=== PATIENT | female | born 1935 | race Caucasian/White ===

== ENCOUNTER 2016-10-19 09:33 | Inpatient (IN) ==
[2016-10-19] MEDS ORDERED: Ondansetron 4 MG/2 ML VIAL IVP PRN (11:43)
[2016-10-19] MEDS ORDERED: Naloxone 0.4 MG/ML INJ IVP PRN (11:43)
[2016-10-19] MEDS ORDERED: *HR* Morphine 2 MG/ML SYRINGE IVP PRN (11:43)
--- NOTE | 2016-10-19 12:12 | Internal Med History&Physical ---
Date of Encounter: 10/19/16 Time of Encounter: 11:55 Assessment and Plan (1) Acute on chronic respiratory failure with hypercapnia Current visit: Yes Status: Acute Acute on chronic hypoxic hypercapnic respiratory failure secondary to acute exacerbation of advanced COPD, HCAP - POA and possible new-onset CHF unspecified Continue BiPAP, DuoNeb breathing treatment, Symbicort, IV Lasix Continue IV Zosyn, vancomycin, IV Levaquin EKG - pending Chest x-ray - possible bilateral pneumonia with bilateral pleural effusions Labs - pending at this time Echocardiogram - pending cardiac telemetry, continuous pulse ox Strict I's and O's, nothing by mouth, fluid restriction, daily weight Labs in a.m. (2) HCAP (healthcare-associated pneumonia) Current visit: Yes Status: Acute Recent hospitalization with recent IV antibiotics Continue IV Zosyn, Levaquin and vancomycin DuoNeb breathing treatments Cultures pending (3) Advanced COPD Current visit: Yes Status: Chronic Plan as above (4) Hypertension Current visit: Yes Status: Chronic Essential hypertension controlled, continue home meds, monitor Qualifiers: Hypertension type: essential hypertension Qualified Code(s): I10 - Essential (primary) hypertension (5) Atrial fibrillation Current visit: Yes Status: Chronic Chronic atrial fibrillation rate controlled Continue Eliquis for anticoagulation Continue metoprolol Qualifiers: Atrial fibrillation type: chronic Qualified Code(s): I48.2 - Chronic atrial fibrillation (6) Solitary kidney, congenital Current visit: Yes Status: Chronic Congenital solitary kidney status (7) Tobacco abuse Current visit: Yes Status: Chronic Nicotine patch, will credit counselor about cessation (8) DVT prophylaxis Current visit: Yes Status: Acute Continue Eliquis Internal Medicine - H&P: HPI Chief complaint: shortness of breath Admitted From: Intrahospital Transfer Plans for Post Hospital Care: Home History of present illness: Ms. Hardy is a 81 year old female past medical history atrial fibrillation, hypertension, hyperlipidemia, COPD, GERD aortic aneurysm thyroid disease and solitary kidney status. She presents as a transfer from [facility] for respiratory failure. Patient has been placed on BiPAP and transferred to our facility. On examination patient is drowsy but easily arousable. She is on BiPAP. She is unable to provide a good history. Most of the history is obtained from patient' s granddaughter. Patient is apparently been discharged from [facility] about 2-3 days ago after being treated for several failure requiring intubation and ventilation. Patient had been doing well since discharge, until late last night. Patient complained of generalized weakness and fatigue last night, and required assistance with ambulation. Earlier this morning patient continued to have significant weakness and also complained of shortness of breath. She was then taken to [facility] ED via EMS for further evaluation. Initial evaluation at [facility] revealed hypoxic respiratory failure, patient was placed on BiPAP. Patient is unable to provide good history, but able to answer some questions. Denies chest pain or any other complaints at this time. No recent falls reported. Patient has been advised to go to [facility] recently but she refused. As per family patient has also been slightly confused since this morning. On examination patient is drowsy, but easily arousable. She is on BiPAP. Patient is being admitted for acute hypoxic hypercapnic respiratory failure secondary to acute exacerbation of COPD. She also likely has healthcare associated pneumonia. She will require breathing treatment BiPAP and IV antibiotics. Patient's granddaughter has been explained about her condition and plan of care. Understood and agreed. We will discuss with other family members as well. CODE STATUS full code. Past Med Surg Social Fam HX - Past Medical History Medical history: aortic aneurysm, atrial fibrillation, COPD, GERD, hyperlipidemia, hypertension, thyroid disease, other (Congenitally one functioning kidney) Psychiatric history: no psych history - Past Surgical History Surgical History: no surgical history - Social History Smoking Status: Current every day smoker Smokeless Tobacco Status: No Alcohol use: none Drug use: none Internal Medicine - H&P: Meds Apixaban [Eliquis] 2.5 mg PO BID 10/10/16 [History] Omeprazole 20 mg PO DAILY 10/10/16 [History] Simvastatin [Zocor] 40 mg PO HS 10/10/16 [History] Albuterol Sulfate [Ventolin Hfa] 2 puff IH Q4H PRN 10/19/16 [History] Aspirin 81 mg PO DAILY 10/19/16 [History] Clopidogrel [Plavix] 75 mg PO DAILY 10/19/16 [History] Docusate [Colace] 100 mg PO BID 10/19/16 [History] Ferrous Gluconate 324 mg PO TID 10/19/16 [History] Fluticasone/Salmeterol [Advair 250-50 Diskus] 1 each IH Q12H 10/19/16 [History] Levothyroxine [Levothyroxine Sodium] 137 mcg PO DAILY@0630 10/19/16 [History] Metoprolol [Lopressor] 25 mg PO TID 10/19/16 [History] Polyethylene Glycol 3350 [MiraLAX Powder Bulk 17.9 Oz] 1 scoop PO DAILY PRN 08/31 [History] Ranitidine HCl [Acid Power Station Operator] 150 mg PO DAILY PRN 10/19/16 [History] Sennosides [Senokot] 8.6 mg PO DAILY 10/19/16 [History] Allergies diphenhydramine [From Benadryl] Allergy (Verified 10/10/16 18:03) Difficulty Breathing ivp dye Allergy (Uncoded 10/10/16 15:35) See Comments ROS unobtainable: other (Due to medical condition) All Systems PM: A 10-system review of systems was performed and is negative for pertinent findings except as documented above in the HPI. - Constitutional Constitutional: fatigue, weakness, no fever(s) - EENT Eyes: no loss of vision - Cardiovascular Cardiovascular ROS IM: dyspnea, dyspnea on exertion, orthopnea, no chest pain, no diaphoresis, no syncope - Respiratory Respiratory: cough, dyspnea, dyspnea on exertion, no wheezing, no chest congestion - Gastrointestinal Gastrointestinal: no abdominal pain, no cramping, no diarrhea, no nausea, no vomiting - Neurological Neurological ROS: no abnormal gait, no abnormal speech, no dizziness, no numbness, no tingling - Constitutional Vitals: Temp Pulse Resp BP Pulse Ox 96.2 F L 97 16 135/67 100 10/19/16 11:44 10/19/16 11:44 10/19/16 11:44 10/19/16 11:44 10/19/16 11:44 General appearance: Present: mild distress, underweight. Absent: answers questions appropriately Exam: Generalized weakness, ill-appearing, drowsy but easily arousable. - Head Head exam: Present: atraumatic - Eye Eye exam: Absent: scleral icterus - ENT ENT exam: Present: mucous membranes dry - Neck Neck exam general surgery: Present: supple - Respiratory Respiratory exam: Present: rales (Bilateral basilar), wheezes (Mild bilateral ) , tachypnea. Absent: rhonchi - Cardiovascular Cardiovascular exam: Present: irregular rhythm, +S1, +S2, systolic murmur - GI/Abdominal GI/Abdominal exam: Present: soft. Absent: distended, firm, guarding, rigid, tenderness - Extremities Exam Extremities exam: Present: radial pulses palpable and symetrical. Absent: cyanotic, tenderness - Neurological Exam Neurological exam: Present: no focal deficits. Absent: facial droop, speech deficit Additional comments: Generalized weakness, drowsy but easily arousable. Able to move extremities, able to verbalize
[2016-10-19] MEDS: Ipratropium/Albuterol Neb 3 ML IH SCH ×3 (12:29→20:20)
[2016-10-19] MEDS ORDERED: Furosemide 40 MG/4 ML VIAL IVP SCH (12:30)
[2016-10-19 12:36] LABS: ABG Base Excess 11.6 mEq/L (-2.0 to 3.0); ABG HCO3 40.9 mEQ/L (21-27); ABG Oxygen Saturation 100 % (95-98); ABG PH 7.27 pH Units (7.32-7.45); ABG PO2 186 mmHg (85-104); ABG TCO2 43.6 mEq/L (20-26)
[2016-10-19 12:41] LABS: ABG PCO2 89 mmHg (35-45); Blood Gas FiO2 60 %
[2016-10-19] MEDS: methylPREDNISolone 125 MG/2 ML VIAL IVP SCH ×3 (13:32→22:30)
[2016-10-19] MEDS: Nicotine 21 MG PATCH.TD24 TD SCH (13:33)
[2016-10-19 14:11] LABS: Basophils % 0.1 %; Eosinophils # 0.2 K/mcL (0.0-0.6); Eosinophils % 1.6 %; Hematocrit 28.7 % (35.3-44.9); Hemoglobin 8.4 g/dL (11.5-15.4); Immature Granulocytes % 1.4 % (0-4); Lymphocytes # 0.9 K/mcL (0.6-4.6); Lymphocytes % 7.2 %; Mean Corpuscular HGB Conc 29.3 g/dL (31.6-35.5); Mean Corpuscular Hemoglobin 29.3 pg (28.0-33.3); Mean Platelet Volume 11.4 fL (9.4-12.4); Monocytes # 1.6 K/mcL (0.0-1.3); Monocytes % 12.7 %; Neutrophils # 9.9 K/mcL (1.6-8.9); Platelet Count 301 K/mcL (140-400); Red Blood Count 2.87 M/mcL (3.82-4.97)
[2016-10-19 14:18] LABS: INR 1.1; Prothrombin Time 12.1 Seconds (9.4-12.1)
[2016-10-19 14:27] LABS: Albumin 2.9 g/dL (3.5-5.0); Albumin/Globulin Ratio 0.9 (1.1-2.2); Bilirubin,Total 0.3 mg/dL (0.2-1.2); Calcium 9.4 mg/dL (8.6-10.8); Globulin 3.2 g/dL (2.4-3.5); Magnesium 1.9 mg/dL (1.6-2.6); Potassium 4.4 mEq/L (3.5-4.5); Total Protein 6.1 g/dL (6.0-8.3)
[2016-10-19] MEDS: Levofloxacin 750 MG/150 ML 750 MG/150 ML BAG IVPB SCH (14:49)
[2016-10-19] MEDS: Vancomycin 1,000 MG in D5% in Water 250 ML IVPB SCH (14:52)
[2016-10-19] MEDS: Piperacillin/Tazobactam 3.375 GM in D5% in Water (Mini-Bag+) 100 ML IVPB SCH ×2 (15:01→22:36)
--- NOTE | 2016-10-19 15:51 | Pulmonology Consult Note ---
Date of Encounter: 10/19/16 Time of Encounter: 15:50 Assessment and Plan (1) Acute exacerbation of chronic obstructive airways disease Current Visit: No Status: Acute 81-year-old woman with what appears to be advanced COPD and chronic respiratory failure heart failure and atrial fibrillation who presented with decompensated respiratory failure which is likely combination of heart failure and COPD exacerbation. 1. Acute on chronic hypoxic hypercarbic respiratory failure 2. Possible PNA 3. COPD with acute exacerbation 4. CHF 5. Atrial Fibrillation RECS: 1. I have adjusted BiPAP at bedside tidal volumes currently 450-550mL when she is awake and taking good breaths this just should be sufficient with her respiratory rate between 14-16 to improve ventilation to avoid intubation. She will need repeat blood gas 30 minutes and I have updated the nursing staff to to this fact. If there is no improvement with repeat blood gas would likely need transfer to stepdown unit for more closer monitoring and more frequent adjustment of BiPAP. I would recommend testing the patient prior to discharge for possible need of noninvasive ventilation at night. I also recomend she have an outpatient polysomnogram. Goal O2 saturation should be 89-92% 2. I do not see a compelling case for acute pneumonia although possible she has had persistent leukocytosis since last admission to the ED and then there is not really any other clinical evidence at this point I would suggest that she has infectious pneumonia. I agree with empiric antimicrobials pending sputum blood cultures recommend sending respiratory infectious panel negative with stop antimicrobials save for possible 5 days of azithromycin to treat for COPD exacerbation 3. Agree with empiric IV steroids and bronchodilators she has scheduled metered -dose inhaler and see Symbicort and sees which is reasonable patient had been smoking up until the admission to [email or web address] but has not smoked since at least from the record I got from the nurse clearly tobacco cessation is of the utmost importance 4. Suspect underlying heart failure with preserved ejection fraction troponin on admission has not been elevated would recommend obtaining two-dimensional echocardiogram as BNP is elevated agree with continued diuresis goal -1-2 L over the next 24 hours she will need at least daily electrolyte panel to monitor for potassium and magnesium along with kidney function I will defer to management of blood pressure to the primary medicine service 5. Currently rate controlled she is on long-term anticoagulation which is reasonable to continue which will also prevent venous thromboembolism continue to monitor Thank you for the consult Pulmonary will continue to follow (2) Acute and chronic respiratory failure Current Visit: No Status: Acute Qualifiers: Respiratory failure complication: hypoxia and hypercapnia Qualified Code(s) : J96.21 - Acute and chronic respiratory failure with hypoxia; J96.22 - Acute and chronic respiratory failure with hypercapnia (3) HCAP (healthcare-associated pneumonia) Current Visit: Yes Status: Acute (4) Atrial fibrillation Current Visit: Yes Status: Chronic Qualifiers: Atrial fibrillation type: chronic Qualified Code(s): I48.2 - Chronic atrial fibrillation (5) DVT prophylaxis Current Visit: Yes Status: Acute (6) Tobacco abuse Current Visit: Yes Status: Chronic History of Present Illness Consult date: 10/19/16 Requesting physician: Sher Anguiano Reason for consult: COPD Chief complaint: Dyspnea History of present illness: This 81-year-old woman with a history of COPD heart failure atrial fibrillation on long-term anticoagulation was admitted for acute on chronic hypoxic hypercarbic respiratory failure. Medical history is taken from the medical record and nursing staff as there was no family members present and patient while being a willing is an incomplete and unreliable historian. Barely the patient was just discharged from [facility] where she was admitted for respiratory failure and treated for pneumonia and COPD exacerbation. She went home for a couple of days and barely did well for at least 24 hours and was unable requiring supplemental oxygen per the record but was found on the toilet and was somnolent with increased dyspnea and fatigue which progressively got worse family called EMS and she was taken to [place] ED and then transferred to [place] for further evaluation. Chest x-ray was notable for increased vascular congestion and bilateral pleural effusions and concern for bilateral pneumonia. Blood gas showed acute on chronic respiratory acidosis she has been treated with bilevel positive airway pressure support steroids with Bactrim antimicrobials to cover for hospital pathogens as well as diuresis. Minor the room was dark the patient was lying nearly flat and took some time to arouse once lytes were turned on she was sat up in bed she was able to follow all my commands and was much more alert and responsive. Cardio pulmonary telemetry monitoring showed saturation of 99-100% on 40% FiO2 bleed to the BiPAP blood pressure has been stable heart rate irregular rate but rate controlled Past Med Surg Social Fam HX - Past Medical History Medical history: aortic aneurysm, atrial fibrillation, COPD, GERD, hyperlipidemia, hypertension, thyroid disease, other (Congenitally one functioning kidney) Psychiatric history: no psych history - Past Surgical History Surgical History: no surgical history - Social History Smoking Status: Current every day smoker Smokeless Tobacco Status: No Alcohol use: none Drug use: none Medications and Allergies Apixaban [Eliquis] 2.5 mg PO BID 10/10/16 [History] Omeprazole 20 mg PO DAILY 10/10/16 [History] Simvastatin [Zocor] 40 mg PO HS 10/10/16 [History] Albuterol Sulfate [Ventolin Hfa] 2 puff IH Q4H PRN 10/19/16 [History] Aspirin 81 mg PO DAILY 10/19/16 [History] Clopidogrel [Plavix] 75 mg PO DAILY 10/19/16 [History] Docusate [Colace] 100 mg PO BID 10/19/16 [History] Ferrous Gluconate 324 mg PO TID 10/19/16 [History] Fluticasone/Salmeterol [Advair 250-50 Diskus] 1 each IH Q12H 10/19/16 [History] Levothyroxine [Levothyroxine Sodium] 137 mcg PO DAILY@0630 10/19/16 [History] Metoprolol [Lopressor] 25 mg PO TID 10/19/16 [History] Polyethylene Glycol 3350 [MiraLAX Powder Bulk 17.9 Oz] 1 scoop PO DAILY PRN 08/31 [History] Ranitidine HCl [Acid Resistor Winder] 150 mg PO DAILY PRN 10/19/16 [History] Sennosides [Senokot] 8.6 mg PO DAILY 10/19/16 [History] Allergies diphenhydramine [From Benadryl] Allergy (Verified 10/10/16 18:03) Difficulty Breathing ivp dye Allergy (Uncoded 10/10/16 15:35) See Comments All Systems: A 10-system review of systems was performed and is negative for pertinent findings except as documented above in the HPI. Physical Examination Vital Signs: Vital Signs, Last 4 Hours Temp Pulse Resp BP Pulse Ox 10/19/16 15:06 97.7 F 94 16 111/83 100 General appearance: no acute distress Eyes: nonicteric ENT: oropharynx moist Effort: mildly labored Auscultation: bilateral: diminished breath sounds, wheezes (Faint expiratory wheeze), rales (Crackles bilateral the lung bases) Cardiovascular: irregular rhythm Gastrointestinal: normoactive bowel sounds, non-tender Extremities: edema (Trace bilateral lower extremity edema) Musculoskeletal: no deformities non-focal exam, pupils equal and round Results - Laboratory Findings CBC and BMP: 10/19/16 13:55 10/19/16 13:55 ABG ABG pH 7.27 pH Units (7.32-7.45) L 10/19/16 12:18 ABG pCO2 89 mmHg (35-45) H* 10/19/16 12:18 ABG pO2 186 mmHg (85-104) H 10/19/16 12:18 ABG O2 Saturation 100 % (95-98) H 10/19/16 12:18 PT/INR, D-dimer PT 12.1 Seconds (9.4-12.1) 10/19/16 13:55 Abnormal lab findings: Abnormal lab results WBC 12.9 K/mcL (4.3-11.1) H 10/19/16 13:55 RBC 2.87 M/mcL (3.82-4.97) L 10/19/16 13:55 Hgb 8.4 g/dL (11.5-15.4) L 10/19/16 13:55 Hct 28.7 % (35.3-44.9) L 10/19/16 13:55 MCHC 29.3 g/dL (31.6-35.5) L 10/19/16 13:55 Neutrophils # 9.9 K/mcL (1.6-8.9) H 10/19/16 13:55 Monocytes # 1.6 K/mcL (0.0-1.3) H 10/19/16 13:55 ABG pH 7.27 pH Units (7.32-7.45) L 10/19/16 12:18 ABG pCO2 89 mmHg (35-45) H* 10/19/16 12:18 ABG pO2 186 mmHg (85-104) H 10/19/16 12:18 ABG HCO3 40.9 mEQ/L (21-27) H 10/19/16 12:18 ABG Total CO2 43.6 mEq/L (20-26) H 10/19/16 12:18 ABG O2 Saturation 100 % (95-98) H 10/19/16 12:18 ABG Base Excess 11.6 mEq/L (-2.0 to 3.0) H 10/19/16 12:18 Carbon Dioxide 38 mEq/L (19-29) H 10/19/16 13:55 BUN 21 mg/dL (7-20) H 10/19/16 13:55 Creatinine 1.57 mg/dL (0.57-1.11) H 10/19/16 13:55 Est GFR ( Amer) 39 (> 60) L 10/19/16 13:55 Est GFR (Non-Af Amer) 32 (> 60) L 10/19/16 13:55 Glucose 109 mg/dL (70-99) H 10/19/16 13:55 Calculated Osmolality 302 (280-300) H 10/19/16 13:55 B-Natriuretic Peptide 427 pg/mL (0-100) H 10/19/16 13:55 Albumin 2.9 g/dL (3.5-5.0) L 10/19/16 13:55 Albumin/Globulin Ratio 0.9 (1.1-2.2) L 10/19/16 13:55 - Diagnostic Findings Chest x-ray: report reviewed, image reviewed CT scan - chest: report reviewed, image reviewed - Clinical Findings Intake & Output: Intake & Output 10/18/16 10/19/16 10/19/16 23:59 07:59 15:59 Weight 61.8 kg Consult Discharge Plan - Plan Referrals: Meenu Rascon, SN[employer] GROOMER [Primary Care Provider] -
[2016-10-19] MEDS ORDERED: *HR* Heparin 5,000 UNIT/ML VIAL SQ SCH (16:00)
[2016-10-19 16:40] LABS: ABG HCO3 39.3 mEQ/L (21-27); ABG Oxygen Saturation 99 % (95-98); ABG PCO2 68 mmHg (35-45); ABG PH 7.37 pH Units (7.32-7.45); ABG PO2 130 mmHg (85-104); ABG TCO2 41.4 mEq/L (20-26)
[2016-10-19 16:41] LABS: Blood Gas FiO2 40 %
[2016-10-19] MEDS: Budesonide/Formoterol 80/4.5 MDI IH SCH (20:20)
[2016-10-19] MEDS: APIXABAN 2.5 MG TABLET PO SCH (22:33)
[2016-10-20] MEDS: Ipratropium/Albuterol Neb 3 ML IH SCH ×7 (00:48→23:27)
[2016-10-20] MEDS: Acetaminophen 325 MG TABLET PO PRN ×2 (02:20→20:03)
[2016-10-20] MEDS: Famotidine 20 MG/2 ML VIAL IVP SCH (05:31)
[2016-10-20] MEDS: methylPREDNISolone 125 MG/2 ML VIAL IVP SCH ×3 (05:31→18:19)
[2016-10-20] MEDS: Piperacillin/Tazobactam 3.375 GM in D5% in Water (Mini-Bag+) 100 ML IVPB SCH ×2 (05:31→15:25)
[2016-10-20 05:56] LABS: Calcium 9.1 mg/dL (8.6-10.8); Potassium 4.8 mEq/L (3.5-4.5)
[2016-10-20 07:08] LABS: ABG Base Excess 13.1 mEq/L (-2.0 to 3.0); ABG HCO3 37.5 mEQ/L (21-27); ABG Oxygen Saturation 99 % (95-98); ABG PCO2 47 mmHg (35-45); ABG PH 7.51 pH Units (7.32-7.45); ABG PO2 140 mmHg (85-104); ABG TCO2 38.9 mEq/L (20-26); Blood Gas FiO2 40 %
--- NOTE | 2016-10-20 07:19 | Pulmonology Progress Note ---
Date of Encounter: 10/20/16 Time of Encounter: 07:19 Assessment and Plan (1) Acute exacerbation of chronic obstructive airways disease Current Visit: No Status: Acute I would continue IV steroids today transitioned to enteral prednisone 40 mg to keep completed two-week taper. Continues scheduled Symbicort and nebulized bronchodilators as needed Reinforce the need for smoking cessation continue nicotine replacement via patch (2) Acute and chronic respiratory failure Current Visit: No Status: Acute This is likely secondary to COPD exacerbation. Continue to wean supplemental oxygen to keep saturation greater than 88% will need to have qualification for BiPAP on this admission I discussed this with the respiratory therapist Qualifiers: Respiratory failure complication: hypoxia and hypercapnia Qualified Code(s) : J96.21 - Acute and chronic respiratory failure with hypoxia; J96.22 - Acute and chronic respiratory failure with hypercapnia (3) HCAP (healthcare-associated pneumonia) Current Visit: Yes Status: Acute I am dubious that she truly has pneumonia would de-escalate to either respiratory fluoroquinolone for 5 days or azithromycin for 5 days (4) Atrial fibrillation Current Visit: Yes Status: Chronic Rate controlled defer to primary medicine service for long-term anticoagulation and notable blocking agent Qualifiers: Atrial fibrillation type: chronic Qualified Code(s): I48.2 - Chronic atrial fibrillation (5) DVT prophylaxis Current Visit: Yes Status: Acute She is currently on a NOAC (6) Tobacco abuse Current Visit: Yes Status: Chronic Tobacco cessation counseling provided (7) CHF (congestive heart failure) Current Visit: Yes Status: Acute Has a history of CHF although do not see an echocardiogram in our system BNP was elevated she is undergoing diuresis however this has resulted in mild acute kidney injury I would stop further diuresis encourage by mouth intake I would recommend echocardiogram if not ordered blood pressure control (on the lower side today actually) and Lusitropic agents per primary team Pulmonary will sign off please call with any questions or if clinical deterioration Qualifiers: Congestive heart failure type: unspecified congestive heart failure type Congestive heart failure chronicity: unspecified congestive heart failure chronicity Qualified Code(s): I50.9 - Heart failure, unspecified Subjective Principal diagnosis: COPD exacerbation Interval history: Patient did well overnight has been taken off BiPAP this morning conversant much more awake appears to be doing much better overall. Creatinine did bump slightly overnight after diuresis but urine output remains steady. She is relatively confused this morning but basic just of all conversation is reasonable and redirectable Objective PUL Vital signs: Last Vital Signs Temp 98.8 F 10/19/16 19:38 Pulse 88 10/20/16 05:17 Resp 20 10/20/16 05:17 BP 94/59 10/20/16 05:17 Pulse Ox 100 10/20/16 05:17 General appearance: no acute distress ENT: oropharynx dry Neck: supple Effort: normal Auscultation: bilateral: diminished breath sounds Cardiovascular: irregular rhythm Gastrointestinal: non-tender Extremities: no edema non-focal exam mood appropriate Results - Laboratory Findings CBC and BMP: 10/20/16 06:59 10/20/16 05:13 ABG ABG pH 7.51 pH Units (7.32-7.45) H 10/20/16 06:55 ABG pCO2 47 mmHg (35-45) H 10/20/16 06:55 ABG pO2 140 mmHg (85-104) H 10/20/16 06:55 ABG O2 Saturation 99 % (95-98) H 10/20/16 06:55 PT/INR, D-dimer PT 12.1 Seconds (9.4-12.1) 10/19/16 13:55 Abnormal lab findings: Abnormal lab results WBC 12.9 K/mcL (4.3-11.1) H 10/19/16 13:55 RBC 2.87 M/mcL (3.82-4.97) L 10/19/16 13:55 Hgb 8.4 g/dL (11.5-15.4) L 10/19/16 13:55 Hct 28.7 % (35.3-44.9) L 10/19/16 13:55 MCHC 29.3 g/dL (31.6-35.5) L 10/19/16 13:55 Neutrophils # 9.9 K/mcL (1.6-8.9) H 10/19/16 13:55 Monocytes # 1.6 K/mcL (0.0-1.3) H 10/19/16 13:55 ABG pH 7.51 pH Units (7.32-7.45) H 10/20/16 06:55 ABG pCO2 47 mmHg (35-45) H 10/20/16 06:55 ABG pO2 140 mmHg (85-104) H 10/20/16 06:55 ABG HCO3 37.5 mEQ/L (21-27) H 10/20/16 06:55 ABG Total CO2 38.9 mEq/L (20-26) H 10/20/16 06:55 ABG O2 Saturation 99 % (95-98) H 10/20/16 06:55 ABG Base Excess 13.1 mEq/L (-2.0 to 3.0) H 10/20/16 06:55 Potassium 4.8 mEq/L (3.5-4.5) H 10/20/16 05:13 Chloride 97 mEq/L (98-109) L 10/20/16 05:13 Carbon Dioxide 31 mEq/L (19-29) H 10/20/16 05:13 BUN 25 mg/dL (7-20) H 10/20/16 05:13 Creatinine 1.74 mg/dL (0.57-1.11) H 10/20/16 05:13 Est GFR ( Amer) 34 (> 60) L 10/20/16 05:13 Est GFR (Non-Af Amer) 28 (> 60) L 10/20/16 05:13 Glucose 126 mg/dL (70-99) H 10/20/16 05:13 POC Glucose 173 (58-89) H 10/19/16 17:46 B-Natriuretic Peptide 427 pg/mL (0-100) H 10/19/16 13:55 Albumin 2.9 g/dL (3.5-5.0) L 10/19/16 13:55 Albumin/Globulin Ratio 0.9 (1.1-2.2) L 10/19/16 13:55 - Clinical Findings Intake & Output: Intake & Output 10/19/16 10/19/16 10/20/16 15:59 23:59 07:59 Intake Total 100 / 100 100 / 100 Output Total 900 / 900 650 / 650 Balance -800 / -800 -550 / -550 Weight 61.8 kg Consult Discharge Plan - Plan Referrals: Meenu Rascon, PHLEBOTOMY DIRECTOR [Primary Care Provider] -
[2016-10-20 07:49] LABS: Hematocrit 26.7 % (35.3-44.9); Hemoglobin 8.4 g/dL (11.5-15.4); Immature Granulocytes % 1.5 % (0-4); Immature Platelets 7.7 % (1.1-6.1); Lymphocytes # 0.3 K/mcL (0.6-4.6); Lymphocytes % 3.6 %; Mean Corpuscular HGB Conc 31.5 g/dL (31.6-35.5); Mean Corpuscular Hemoglobin 30.2 pg (28.0-33.3); Monocytes # 0.2 K/mcL (0.0-1.3); Neutrophils # 7.9 K/mcL (1.6-8.9); Platelet Count 305 K/mcL (140-400); Red Blood Count 2.78 M/mcL (3.82-4.97); Red Cell Distribution Width 14.1 % (11.5-14.5); Segmented Neutrophils % 92.9 %
[2016-10-20] MEDS: Budesonide/Formoterol 80/4.5 MDI IH SCH ×2 (07:59→19:49)
[2016-10-20] MEDS: Nicotine 21 MG PATCH.TD24 TD SCH (08:49)
[2016-10-20] MEDS: APIXABAN 2.5 MG TABLET PO SCH ×2 (08:50→20:13)
[2016-10-20] MEDS: Sennosides 8.6 MG TABLET PO SCH (08:51)
[2016-10-20 09:17] LABS: Immature Reticulocyte % 28.1 % (11.0-38.0); Retculocyte # 0.11 M/mcL (0.05-0.10); Reticulocyte % 3.9 % (1.6-2.8)
[2016-10-20 11:54] LABS: % Iron Saturation 6 % (15-50); Iron 21 mcg/dL (50-170); Transferrin 263 mg/dL (180-382)
[2016-10-20] MEDS ORDERED: 0.9 % Sodium Chloride 1,000 ML IVC ONE (12:02)
[2016-10-20 12:16] LABS: Ferritin 74 ng/ml (5-204)
[2016-10-20 12:30] LABS: Folate 11.7 ng/mL (7.0-31.4)
[2016-10-20 12:45] LABS: Bilirubin,Urine Negative (Negative); Blood,Urine Moderate (Negative); Color,Urine Yellow (Yellow); Glucose,Urine (UA) Normal (Normal); Ketones,Urine Trace mg/dL (Negative); Leukocyte Esterase,Urine Negative (Negative); Nitrite,Urine Negative (Negative); PH,Urine 5.5 pH Units (5.0-8.0); Protein,Urine 30 mg/dL (Neg-Trace); Specific Gravity,Urine 1.029 (1.010-1.025); Urobilinogen,Urine Normal (Normal)
[2016-10-20 12:47] LABS: Bacteria,Urine None Seen per hpf (None-Few); Hyaline Casts,Urine None Seen per lpf (None-Few); Squamous Epithelial Cell,Urine Many per lpf (None-Few)
[2016-10-20 12:50] LABS: Clarity,Urine Clear (Clear)
[2016-10-20 13:09] LABS: Yeast,Urine Many per hpf (None Seen)
[2016-10-20] MEDS: Vancomycin 1,000 MG in D5% in Water 250 ML IVPB SCH (15:36)
--- NOTE | 2016-10-20 16:36 | Internal Med Progress Note ---
Date of Encounter: 10/20/16 Time of Encounter: 09:30 - Constitutional Vitals: Temp Pulse Resp BP Pulse Ox 99.7 F H 76 18 101/66 100 10/20/16 16:21 10/20/16 16:21 10/20/16 16:21 10/20/16 16:21 10/20/16 16:21 General appearance: Present: mild distress, underweight. Absent: answers questions appropriately Internal Medicine: Result - Labs CBC & Chem 7: 10/20/16 06:59 10/20/16 05:13 Labs: Short CBC 10/20/16 Range/Units 06:59 WBC 8.6 (4.3-11.1) K/mcL Hgb 8.4 L (11.5-15.4) g/dL Hct 26.7 L (35.3-44.9) % Plt Count 305 (140-400) K/mcL Neutrophils # 7.9 (1.6-8.9) K/mcL BMP 10/20/16 05:13 Sodium 141 Potassium 4.8 H Chloride 97 L Carbon Dioxide 31 H BUN 25 H Creatinine 1.74 H Glucose 126 H Calcium 9.1 Urine 10/20/16 Range/Units 11:05 Urine Color Yellow (Yellow) Urine Clarity Clear (Clear) Urine pH 5.5 (5.0-8.0) pH Units Ur Specific [place] 1.029 H (1.010-1.025) Urine Protein 30 H (Neg-Trace) mg/dL Urine Glucose (UA) Normal (Normal) mg/dL - ABG Interpretation ABG results: ABG ABG pH 7.51 pH Units (7.32-7.45) H 10/20/16 06:55 ABG pCO2 47 mmHg (35-45) H 10/20/16 06:55 ABG pO2 140 mmHg (85-104) H 10/20/16 06:55 ABG O2 Saturation 99 % (95-98) H 10/20/16 06:55 PT/INR, D-dimer PT 12.1 Seconds (9.4-12.1) 10/19/16 13:55 - Impressions Impressions Chest X-Ray 10/20/16 09:12 IMPRESSION: 1. Small bilateral pleural effusions, left greater than right. 2. Left greater than right basilar opacities may represent atelectasis and/or multifocal pneumonia. Continued radiographic follow-up recommended. 3. Mild cardiomegaly and pulmonary edema persist. D/ / Brandon Rose MD / Brandon Rose MD Interpreting Provider: Brandon Rose MD Chest CT 10/20/16 14:10 IMPRESSION: 1. Decrease in the bilateral pleural effusions with some improvement in the associated atelectasis. 2. Tree-in-bud nodularity in the peripheral right upper lobe can be seen with infectious or inflammatory process including atypical infections. D/ / Eliezer Amaya MD / Eliezer Amaya MD Interpreting Provider: Eliezer Amaya MD Consult Discharge Plan - Plan Referrals: Meenu Rascon CNP [Primary Care Provider] - 10/27/16 3:00 pm
--- NOTE | 2016-10-20 16:43 | Internal Med Progress Note ---
<Bairon Alvarez - Last Filed: 10/20/16 17:16> Date of Encounter: 10/20/16 Time of Encounter: 10:20 - Assessment and plan (1) Acute and chronic respiratory failure Current Visit: Yes Status: Acute Assessment and plan: Multifactorial. 1. Chronic hypoxemia and hypercapnea secondary to COPD and long history of tobacco abuse. 2. Acute exacerbation of COPD 3. Possible CHF. 4. Continued tobacco abuse. I have reviewed pulmonologies recommendations and appreciate their input. Continue symbicort and Duonebs. transition to PO prednisone with a slow taper on discharge ( 2 weeks) I agree that clinically this does not appear to be an HCAP. However CT of the chest does show some tree in bud patterns so we will continue the levofloxacin for atypical coverage. we will DC Vacnomycin and Zosyn. Continue to follow up with cultures. Patient technically meets SIRS criteria but clinically she dose not appear septic. Lactic acid is normal. I think her Tachycardia and tachypnea are likely from her cardiopulmonary issues rather than infection. Leukocytosis has normalized. We will follow up with cultures and also watch her closely clinically. Strongly recommend continued smoking cessation. titrate O2 to 88-92% range. encourage up to chair TID if tolerated. Will give IV lasix for volume overload. continue to monitor renal function and electrolytes. Will attempt to qualify for BIPAP overnight. Qualifiers: Qualified Code(s): J96.21 - Acute and chronic respiratory failure with hypoxia; J96.22 - Acute and chronic respiratory failure with hypercapnia (2) Acute exacerbation of chronic obstructive pulmonary disease (COPD) Current Visit: Yes Status: Acute Assessment and plan: As stated above. (3) Pedal edema Current Visit: Yes Status: Acute Assessment and plan: As stated above IV lasix. TTE pending. (4) Pulmonary edema Current Visit: Yes Status: Acute Assessment and plan: mild as stated above. Qualifiers: Qualified Code(s): J81.0 - Acute pulmonary edema (5) Iron deficiency anemia Current Visit: Yes Status: Acute Assessment and plan: Concerning given that the patient is on Eliquis and Plavix. However no active bleeding and Hg has been stable since admission. Hemoccult pending and still no signs of bleeding should have outpatient endoscopy and close follow up of HG. If positive will consult GI. Qualifiers: Qualified Code(s): D50.9 - Iron deficiency anemia, unspecified (6) Atrial fibrillation Current Visit: Yes Status: Acute Assessment and plan: Currently rate controlled on metoprolol. On Eliquis for AC. Qualifiers: Qualified Code(s): I48.91 - Unspecified atrial fibrillation (7) Congenital single kidney Current Visit: No Status: Chronic (8) Tobacco abuse Current Visit: Yes Status: Acute Assessment and plan: continue cessation. She quit one week ago. (9) CKD (chronic kidney disease) Current Visit: Yes Status: Acute Assessment and plan: Stabe 3 B. continue to monitor renal function closely. Qualifiers: Qualified Code(s): N18.3 - Chronic kidney disease, stage 3 (moderate) (10) DVT prophylaxis Current Visit: Yes Status: Acute Assessment and plan: on eliquis. - Subjective Interval history: Today Mrs. Hardy states that she is feeling much better. She states that she is breathing much easier. She denies any recent productive cough or fever. She states that she was also getting confused at home and now she is thinking clearly. This Am she states that she dose not have any pain or discomfort. She denies any chest pain or pressure. she dose admit to new pedal edema that began approximately one week ago. She is unsure of whether or not she has orthopnea. denies hematochezia or melena. she denies any further complaints or concerns at this time. - Constitutional Vitals: Temp Pulse Resp BP Pulse Ox 99.7 F H 76 18 101/66 100 10/20/16 16:21 10/20/16 16:21 10/20/16 16:21 10/20/16 16:21 10/20/16 16:21 Exam: Gen.: Ms. Hardy is a very pleasant well-developed well-nourished 81-year-old female she is currently alert and orientated to person place time and situation. She is lying in bed appears to be comfortable she is in no acute distress this time. HEENT: The head is normocephalic and atraumatic. Her pupils are equally round and react to light anicteric sclera, there is normal external appearance of ears nose and eyes. Moist mucous membranes. Tongue is midline trachea is midline. There is no cervical submandibular or supraclavicular lymphadenopathy palpable on exam. Heart: Heart is regular rate and rhythm without murmurs rubs or gallops. There is no heave or thrill with palpation of the precordium. There is no carotid bruits. There is no JVD. Lungs: She has a normal effort of breathing at this time. She is able to converse with me in full sentences. There is no accessory muscle use or paradoxical movement of the abdomen at this time. Her lungs are clear to auscultation bilaterally however she is globally diminished. However she does have air flow into the base lungs bilaterally. Abdomen: The abdomen is soft, nondistended, nontender to palpation. Bowel sounds are present in all quadrants. Musculoskeletal: Grossly normal for age no gross deformity is noted. Extremities: There is no clubbing, cyanosis radial pulses are 2+ and synchronous. All extremities are warm to palpation. She does have a 1-2+ pitting edema of the lower extremities mid mcdowell level. integument: No notable rashes or lesions noted. Psych: The patient cooperates fully with both the history taking and exam. Appears to have a normal affect is time. Internal Medicine: Result - Labs CBC & Chem 7: 10/20/16 06:59 10/20/16 05:13 Labs: Short CBC 10/20/16 Range/Units 06:59 WBC 8.6 (4.3-11.1) K/mcL Hgb 8.4 L (11.5-15.4) g/dL Hct 26.7 L (35.3-44.9) % Plt Count 305 (140-400) K/mcL Neutrophils # 7.9 (1.6-8.9) K/mcL BMP 10/20/16 05:13 Sodium 141 Potassium 4.8 H Chloride 97 L Carbon Dioxide 31 H BUN 25 H Creatinine 1.74 H Glucose 126 H Calcium 9.1 Urine 10/20/16 Range/Units 11:05 Urine Color Yellow (Yellow) Urine Clarity Clear (Clear) Urine pH 5.5 (5.0-8.0) pH Units Ur Specific [place] 1.029 H (1.010-1.025) Urine Protein 30 H (Neg-Trace) mg/dL Urine Glucose (UA) Normal (Normal) mg/dL - ABG Interpretation ABG results: ABG ABG pH 7.51 pH Units (7.32-7.45) H 10/20/16 06:55 ABG pCO2 47 mmHg (35-45) H 10/20/16 06:55 ABG pO2 140 mmHg (85-104) H 10/20/16 06:55 ABG O2 Saturation 99 % (95-98) H 10/20/16 06:55 PT/INR, D-dimer PT 12.1 Seconds (9.4-12.1) 10/19/16 13:55 - Impressions Impressions Chest X-Ray 10/20/16 09:12 IMPRESSION: 1. Small bilateral pleural effusions, left greater than right. 2. Left greater than right basilar opacities may represent atelectasis and/or multifocal pneumonia. Continued radiographic follow-up recommended. 3. Mild cardiomegaly and pulmonary edema persist. D/ / Brandon Rose MD / Brandon Rose MD Interpreting Provider: Brandon Rose MD Chest CT 10/20/16 14:10 IMPRESSION: 1. Decrease in the bilateral pleural effusions with some improvement in the associated atelectasis. 2. Tree-in-bud nodularity in the peripheral right upper lobe can be seen with infectious or inflammatory process including atypical infections. D/ / Eliezer Amaya MD / Eliezer Amaya MD Interpreting Provider: Eliezer Amaya MD Consult Discharge Plan - Plan Referrals: Meenu Rascon [employer] [Primary Care Provider] - 10/27/16 3:00 pm <Anirudh Sanchez - Last Filed: 10/20/16 20:29> Date of Encounter: 10/20/16 - Constitutional Vitals: Temp Pulse Resp BP Pulse Ox 97.8 F 121 20 114/90 100 10/20/16 19:55 10/20/16 19:55 10/20/16 19:55 10/20/16 19:55 10/20/16 19:55 Internal Medicine: Result - Labs CBC & Chem 7: 10/20/16 06:59 10/20/16 05:13 Labs: Short CBC 10/20/16 Range/Units 06:59 WBC 8.6 (4.3-11.1) K/mcL Hgb 8.4 L (11.5-15.4) g/dL Hct 26.7 L (35.3-44.9) % Plt Count 305 (140-400) K/mcL Neutrophils # 7.9 (1.6-8.9) K/mcL BMP 10/20/16 05:13 Sodium 141 Potassium 4.8 H Chloride 97 L Carbon Dioxide 31 H BUN 25 H Creatinine 1.74 H Glucose 126 H Calcium 9.1 Urine 10/20/16 Range/Units 11:05 Urine Color Yellow (Yellow) Urine Clarity Clear (Clear) Urine pH 5.5 (5.0-8.0) pH Units Ur Specific [place] 1.029 H (1.010-1.025) Urine Protein 30 H (Neg-Trace) mg/dL Urine Glucose (UA) Normal (Normal) mg/dL - ABG Interpretation ABG results: ABG ABG pH 7.51 pH Units (7.32-7.45) H 10/20/16 06:55 ABG pCO2 47 mmHg (35-45) H 10/20/16 06:55 ABG pO2 140 mmHg (85-104) H 10/20/16 06:55 ABG O2 Saturation 99 % (95-98) H 10/20/16 06:55 PT/INR, D-dimer PT 12.1 Seconds (9.4-12.1) 10/19/16 13:55 - Impressions Impressions Chest X-Ray 10/20/16 09:12 IMPRESSION: 1. Small bilateral pleural effusions, left greater than right. 2. Left greater than right basilar opacities may represent atelectasis and/or multifocal pneumonia. Continued radiographic follow-up recommended. 3. Mild cardiomegaly and pulmonary edema persist. D/ / Brandon Rose MD / Brandon Rose MD Interpreting Provider: Brandon Rose MD Chest CT 10/20/16 14:10 IMPRESSION: 1. Decrease in the bilateral pleural effusions with some improvement in the associated atelectasis. 2. Tree-in-bud nodularity in the peripheral right upper lobe can be seen with infectious or inflammatory process including atypical infections. D/ / Eliezer Amaya MD / Eliezer Amaya MD Interpreting Provider: Eliezer Amaya MD - Attending Attestation I examined this patient and my medical decision-making was reviewed with the Resident Physician, Dr. Alvarez. I agree with the documented findings, disposition and treatment plan as described except to the extent set forth below. We will continue treatment with broad-spectrum IV antibiotics. IV steroids. BiPAP as needed. I reviewed appreciate pulmonary recommendations. We will obtain CT of the chest.
[2016-10-20] MEDS ORDERED: Petrolatum, White OINT.PACK TP PRN (21:21)
[2016-10-21] MEDS: Ipratropium/Albuterol Neb 3 ML IH SCH ×6 (04:25→23:31)
[2016-10-21 05:51] LABS: Hematocrit 25.7 % (35.3-44.9); Lymphocytes # 0.4 K/mcL (0.6-4.6); Lymphocytes % 3.6 %; Mean Corpuscular HGB Conc 31.1 g/dL (31.6-35.5); Mean Corpuscular Hemoglobin 29.2 pg (28.0-33.3); Mean Corpuscular Volume 93.8 fL (83.0-100.0); Mean Platelet Volume 11.1 fL (9.4-12.4); Monocytes # 0.8 K/mcL (0.0-1.3); Monocytes % 6.6 %; Neutrophils # 10.3 K/mcL (1.6-8.9); Platelet Count 315 K/mcL (140-400); Red Blood Count 2.74 M/mcL (3.82-4.97); Red Cell Distribution Width 14.2 % (11.5-14.5); Segmented Neutrophils % 88.8 %
[2016-10-21] MEDS: Famotidine 20 MG/2 ML VIAL IVP SCH (06:11)
[2016-10-21 06:14] LABS: Calcium 9.3 mg/dL (8.6-10.8); Magnesium 1.8 mg/dL (1.6-2.6)
[2016-10-21 06:16] LABS: Potassium 3.7 mEq/L (3.5-4.5)
[2016-10-21] MEDS ORDERED: Magic Mouthwash 10 ML UD Cup PO SCH (07:30)
[2016-10-21] MEDS: Budesonide/Formoterol 80/4.5 MDI IH SCH ×2 (07:47→19:47)
[2016-10-21] MEDS ORDERED: Furosemide 20 MG/2 ML VIAL IVP SCH (09:00)
[2016-10-21] MEDS: APIXABAN 2.5 MG TABLET PO SCH ×2 (09:11→22:12)
[2016-10-21] MEDS: predniSONE 20 MG TABLET PO SCH (09:12)
[2016-10-21] MEDS: Sennosides 8.6 MG TABLET PO SCH (09:12)
[2016-10-21] MEDS: Nicotine 21 MG PATCH.TD24 TD SCH (09:12)
[2016-10-21] MEDS ORDERED: 0.9 % Sodium Chloride 500 ML IVC ONE (11:23)
[2016-10-21] MEDS ORDERED: *HR* Metoprolol 5 MG/5 ML VIAL IVP SCH (13:15)
[2016-10-21] MEDS: Levofloxacin 750 MG/150 ML 750 MG/150 ML BAG IVPB SCH (13:25)
[2016-10-21] MEDS: *HR* Metoprolol 5 MG/5 ML VIAL IVP SCH ×2 (13:47→15:29)
--- NOTE | 2016-10-21 18:17 | Internal Med Progress Note ---
<Magdaleno Hankins - Last Filed: 10/21/16 18:18> Date of Encounter: 10/21/16 Time of Encounter: 09:00 - Assessment and plan (1) Acute and chronic respiratory failure Current Visit: Yes Status: Acute Assessment and plan: 10/21 Patient does not appear to be septic. Palliative care has been consulted to discuss options. Patient unwilling to make serious lifestyle changes. 10/20 Multifactorial. 1. Chronic hypoxemia and hypercapnea secondary to COPD and long history of tobacco abuse. 2. Acute exacerbation of COPD 3. Possible CHF. 4. Continued tobacco abuse. I have reviewed pulmonologies recommendations and appreciate their input. Continue symbicort and Duonebs. transition to PO prednisone with a slow taper on discharge ( 2 weeks) I agree that clinically this does not appear to be an HCAP. However CT of the chest does show some tree in bud patterns so we will continue the levofloxacin for atypical coverage. we will DC Vacnomycin and Zosyn. Continue to follow up with cultures. Patient technically meets SIRS criteria but clinically she dose not appear septic. Lactic acid is normal. I think her Tachycardia and tachypnea are likely from her cardiopulmonary issues rather than infection. Leukocytosis has normalized. We will follow up with cultures and also watch her closely clinically. Strongly recommend continued smoking cessation. titrate O2 to 88-92% range. encourage up to chair TID if tolerated. Will give IV lasix for volume overload. continue to monitor renal function and electrolytes. Will attempt to qualify for BIPAP overnight. Qualifiers: Qualified Code(s): J96.21 - Acute and chronic respiratory failure with hypoxia; J96.22 - Acute and chronic respiratory failure with hypercapnia (2) Acute exacerbation of chronic obstructive pulmonary disease (COPD) Current Visit: Yes Status: Acute Assessment and plan: As stated above. (3) CKD (chronic kidney disease) Current Visit: Yes Status: Acute Assessment and plan: Stabe 3 B. continue to monitor renal function closely. 500ml ns bolus and renal US Qualifiers: Qualified Code(s): N18.3 - Chronic kidney disease, stage 3 (moderate) (4) Iron deficiency anemia Current Visit: Yes Status: Acute Assessment and plan: Concerning given that the patient is on Eliquis and Plavix. However no active bleeding and Hg has been stable since admission. Hemoccult pending and still no signs of bleeding should have outpatient endoscopy and close follow up of HG. If positive will consult GI. Qualifiers: Qualified Code(s): D50.9 - Iron deficiency anemia, unspecified (5) Pedal edema Current Visit: Yes Status: Acute Assessment and plan: Hold lasix. TTE demonstrates 40% LVEF. (6) Atrial fibrillation Current Visit: Yes Status: Chronic Qualifiers: Atrial fibrillation type: chronic Qualified Code(s): I48.2 - Chronic atrial fibrillation (7) Tobacco abuse Current Visit: Yes Status: Chronic (8) Congenital single kidney Current Visit: No Status: Chronic (9) DVT prophylaxis Current Visit: Yes Status: Acute - Subjective Interval history: Patient appears to be doing well clinically. She is resting comfortably in bed in no acute distress. - Constitutional Vitals: Temp Pulse Resp BP Pulse Ox 98.7 F 105 18 121/64 99 10/21/16 16:09 10/21/16 16:09 10/21/16 16:19 10/21/16 16:10/21/16 16:19 General appearance: Present: mild distress, underweight. Absent: answers questions appropriately - Head Head exam: Present: atraumatic, normocephalic - Eye Eye exam: Present: PERRL, conjuntiva pink, sclera anicteric Pupils: Present: PERRL - Neck Neck exam general surgery: Present: supple, trachea midline. Absent: lymphadenopathy - Respiratory Respiratory exam: Present: CTAB. Absent: accessory muscle use, rales, rhonchi, wheezes - Cardiovascular Cardiovascular exam: Present: RRR, +S1, +S2, tachycardia. Absent: diastolic murmur, gallop, rubs, systolic murmur - GI/Abdominal GI/Abdominal exam: Present: normal bowel sounds, soft, no peritoneal signs. Absent: distended, tenderness - Extremities Exam Extremities exam: Present: warm, radial pulses palpable and symetrical. Absent : calf tenderness, cyanotic, pedal edema - Neurological Exam Neurological exam: Present: CN II-XII intact, oriented X3, no focal deficits. Absent: pronater drift, facial droop, speech deficit - Skin Skin exam: Present: dry, intact Internal Medicine: Result - Labs CBC & Chem 7: 10/21/16 05:33 10/21/16 05:33 Labs: Short CBC 10/21/16 Range/Units 05:33 WBC 11.6 H (4.3-11.1) K/mcL Hgb 8.0 L (11.5-15.4) g/dL Hct 25.7 L (35.3-44.9) % Plt Count 315 (140-400) K/mcL Neutrophils # 10.3 H (1.6-8.9) K/mcL BMP 10/21/16 05:33 Sodium 139 Potassium 3.7 D Chloride 98 Carbon Dioxide 33 H BUN 32 H Creatinine 1.99 H Glucose 139 H Calcium 9.3 - ABG Interpretation ABG results: ABG ABG pH 7.51 pH Units (7.32-7.45) H 10/20/16 06:55 ABG pCO2 47 mmHg (35-45) H 10/20/16 06:55 ABG pO2 140 mmHg (85-104) H 10/20/16 06:55 ABG O2 Saturation 99 % (95-98) H 10/20/16 06:55 PT/INR, D-dimer PT 12.1 Seconds (9.4-12.1) 10/19/16 13:55 Consult Discharge Plan - Plan Referrals: Meenu Rascon, JAKE [Primary Care Provider] - 10/27/16 3:00 pm <Anirudh Sanchez - Last Filed: 10/21/16 20:32> Date of Encounter: 10/21/16 - Constitutional Vitals: Temp Pulse Resp BP Pulse Ox 98.4 F 107 19 95/67 92 10/21/16 19:51 10/21/16 19:51 10/21/16 19:51 10/21/16 19:51 10/21/16 19:51 Internal Medicine: Result - Labs CBC & Chem 7: 10/21/16 05:33 10/21/16 05:33 Labs: Short CBC 10/21/16 Range/Units 05:33 WBC 11.6 H (4.3-11.1) K/mcL Hgb 8.0 L (11.5-15.4) g/dL Hct 25.7 L (35.3-44.9) % Plt Count 315 (140-400) K/mcL Neutrophils # 10.3 H (1.6-8.9) K/mcL BMP 10/21/16 05:33 Sodium 139 Potassium 3.7 D Chloride 98 Carbon Dioxide 33 H BUN 32 H Creatinine 1.99 H Glucose 139 H Calcium 9.3 - ABG Interpretation ABG results: ABG ABG pH 7.51 pH Units (7.32-7.45) H 10/20/16 06:55 ABG pCO2 47 mmHg (35-45) H 10/20/16 06:55 ABG pO2 140 mmHg (85-104) H 10/20/16 06:55 ABG O2 Saturation 99 % (95-98) H 10/20/16 06:55 PT/INR, D-dimer PT 12.1 Seconds (9.4-12.1) 10/19/16 13:55 - Impressions Impressions Retroperitoneum Ultrasound 10/21/16 16:00 IMPRESSION: Atrophic bilateral kidneys, right greater than left. No hydronephrosis. D/ / Gelacio Flood MD / Gelacio Flood MD Interpreting Provider: Gelacio Flood MD - Attending Attestation I examined this patient and my medical decision-making was reviewed with the Resident Physician, Dr Hankins. I agree with the documented findings, disposition and treatment plan as described except to the extent set forth below. patient presented to the hospital wit With shortness of breath. Current Currently being treated for CHF and COPD. We will continue with Lasix. Steroids and IV antibiotics.
[2016-10-21] MEDS: Acetaminophen 325 MG TABLET PO PRN (22:12)
[2016-10-22] MEDS: Ipratropium/Albuterol Neb 3 ML IH SCH ×6 (03:49→23:07)
[2016-10-22] MEDS: Famotidine 20 MG/2 ML VIAL IVP SCH (05:45)
[2016-10-22 06:54] LABS: Basophils % 0.1 %; Eosinophils % 0.2 %; Hematocrit 25.9 % (35.3-44.9); Hemoglobin 7.9 g/dL (11.5-15.4); Immature Granulocytes % 1.5 % (0-4); Immature Platelets 7.1 % (1.1-6.1); Lymphocytes # 1.1 K/mcL (0.6-4.6); Lymphocytes % 9.2 %; Mean Corpuscular HGB Conc 30.5 g/dL (31.6-35.5); Mean Corpuscular Hemoglobin 29.3 pg (28.0-33.3); Mean Corpuscular Volume 95.9 fL (83.0-100.0); Mean Platelet Volume 11.3 fL (9.4-12.4); Monocytes # 1.4 K/mcL (0.0-1.3); Monocytes % 12.4 %; Platelet Count 315 K/mcL (140-400); Red Cell Distribution Width 14.5 % (11.5-14.5); Segmented Neutrophils % 76.6 %
[2016-10-22 07:00] LABS: Neutrophils # 8.8 K/mcL (1.6-8.9)
[2016-10-22 07:08] LABS: Calcium 8.9 mg/dL (8.6-10.8); Potassium 3.6 mEq/L (3.5-4.5)
[2016-10-22 07:19] LABS: Hypochromasia Present (Not Present); Macrocytosis Present (Not Present); Microcytosis Present (Not Present)
[2016-10-22 07:20] LABS: Anisocytosis 1+ (Not Present); Ovalocytes 1+ (Not Present); Platelet Estimate Normal (Normal); Poikilocytosis 1+ (Not Present); Spherocytes 1+ (Not Present)
[2016-10-22] MEDS: Nicotine 21 MG PATCH.TD24 TD SCH (08:41)
[2016-10-22] MEDS: APIXABAN 2.5 MG TABLET PO SCH (08:42)
[2016-10-22] MEDS: predniSONE 20 MG TABLET PO SCH (08:42)
[2016-10-22] MEDS: Sennosides 8.6 MG TABLET PO SCH (08:42)
[2016-10-22] MEDS ORDERED: Sennosides 8.6 MG TABLET PO PRN (11:05)
--- NOTE | 2016-10-22 11:08 | Palliative - Consult Note ---
Date of Encounter: 10/22/16 Time of Encounter: 08:00 - Assessment and Plan (1) Dyspnea Current Visit: Yes Status: Acute Assessment and plan: The patient's dyspnea has markedly improved, patient feels that she is doing much better at this time. Plan is per the hospitalist team. Qualifiers: Dyspnea type: unspecified Qualified Code(s): R06.00 - Dyspnea, unspecified (2) Goals of care, counseling/discussion Current Visit: Yes Status: Acute Assessment and plan: The patient does not wish to be intubated long-term, she is okay with short- term intubation. He does not wish to be resuscitated in the event of cardiac arrest and therefore selected for DNR CCA status. Her goal of care is to ultimately return home. At this time I do not know if she is okay with a short- term rehabilitation stent or not. Palliative we will continue to follow. (3) HCAP (healthcare-associated pneumonia) Current Visit: Yes Status: Acute Assessment and plan: No growth on cultures at this time, no fever or white count still slightly elevated plan per hospitalist team. (4) Pedal edema Current Visit: Yes Status: Acute Assessment and plan: This is improving per patient plan per hospitalist team. Palliative-CN HPI - Data of Consult Patient: new to practice Requesting Physician: Anirudh Sanchez MD Primary Care Provider: Meenu Rascon CNP - Consult Narrative Palliative Care/Comfort Measures: Palliative care Reason for consult: O's of care, CODE STATUS History of present illness: Ms. Hardy is a 81 year old female With a history of atrial fibrillation hypertension hyperlipidemia COPD which is quite severe GERD aortic aneurysm thyroid disease and solitary kidney has as a transfer initially from [place] emergency room for respiratory failure. Patient had been recently hospitalized at the [facility] for a similar episode and actually required intubation and ventilation at that time. She will benefit apparently several days prior to admission patient was doing well until the night of mission when she was noticing increasing generalized fatigue and more short of breath. She went to the [place] emergency department which revealed hypoxemic respiratory failure the patient was placed on BiPAP. She denied any chest pain but stated she was feeling short of breath. [facility], however she has refused this in the past. She was admitted for hypoxemic hypercapnic respiratory failure. She awakened and was able to communicate it was clear to the treatment team that she did not wish to change her lifestyle in any significant way. Palliative care was consulted to discuss goals of care and CODE STATUS with her. See the assessment and plan. The patient has no pain at this time markedly improved. She states she still does have some swelling in her legs. She has no nausea no vomiting she does have constipation she does not have any vomiting already noted. She does have shortness of breath but no chest pain. CC: Anirudh Sanchez MD Shortness of breath Past Med Surg Social Fam HX - Past Medical History Medical history: aortic aneurysm, atrial fibrillation, COPD, GERD, hyperlipidemia, hypertension, thyroid disease, other (Congenitally one functioning kidney) Psychiatric history: no psych history - Past Surgical History Surgical History: no surgical history - Social History Smoking Status: Current every day smoker Smokeless Tobacco Status: No Alcohol use: none Drug use: none Medications and Allergies Apixaban [Eliquis] 2.5 mg PO BID 10/10/16 [History] Omeprazole 20 mg PO DAILY 10/10/16 [History] Simvastatin [Zocor] 40 mg PO HS 10/10/16 [History] Albuterol Sulfate [Ventolin Hfa] 2 puff IH Q4H PRN 10/19/16 [History] Aspirin 81 mg PO DAILY 10/19/16 [History] Clopidogrel [Plavix] 75 mg PO DAILY 10/19/16 [History] Docusate [Colace] 100 mg PO BID 10/19/16 [History] Ferrous Gluconate 324 mg PO TID 10/19/16 [History] Fluticasone/Salmeterol [Advair 250-50 Diskus] 1 each IH Q12H 10/19/16 [History] Levofloxacin [Levaquin] 750 mg PO Q48H 10/19/16 [History] Levothyroxine [Levothyroxine Sodium] 137 mcg PO DAILY@0630 10/19/16 [History] Metoprolol [Lopressor] 25 mg PO TID 10/19/16 [History] Polyethylene Glycol 3350 [MiraLAX Powder Bulk 17.9 Oz] 1 scoop PO DAILY PRN 08/31 [History] Ranitidine HCl [Acid Cardiovascular Or Nurse] 150 mg PO DAILY PRN 10/19/16 [History] Sennosides [Senokot] 8.6 mg PO DAILY 10/19/16 [History] Allergies diphenhydramine [From Benadryl] Allergy (Verified 10/10/16 18:03) Difficulty Breathing ivp dye Allergy (Uncoded 10/10/16 15:35) See Comments - Constitutional Constitutional ROS PAL: decreased appetite, anorexia, fatigue - EENT Eyes: no discharge, no pain Ears: no ear discharge, no ear pain Ears, nose, mouth, throat: no facial pain, no hoarseness, no neck mass, no neck pain - Cardiovascular Cardiovascular ROS: chest pain with activity, dyspnea on exertion, no chest pain , no chest pain at rest - Respiratory Respiratory: cough, dyspnea, dyspnea on exertion, chest congestion - Gastrointestinal Gastrointestinal: constipation, no diarrhea, no nausea, no vomiting - Genitourinary Palliative ROS female: no urinary frequency, no urinary hesitancy, no urinary incontinence - Musculoskeletal Musculoskeletal ROS IM: no arthralgias, no back pain, no joint swelling - Integumentary ROS Integumentary: no rash, no skin pain - Neurological Neurological ROS: no burning sensations, no confusion, no convulsions, no frequent falls, no headache(s) - Psychiatric Psychiatric general PM: no difficulty concentrating, no homicidal ideation, no suicidal ideation - Endocrine Endocrine IM: other (Thyroid disease) Palliative Care-Exam - Constitutional Vitals: Temp Pulse Resp BP Pulse Ox 97.6 F 105 18 122/77 98 10/22/16 06:26 10/22/16 06:26 10/22/16 06:26 10/22/16 06:26 10/22/16 09:00 General appearance: Present: no acute distress - Head Head Exam: Present: atraumatic, normal inspection - Eye Eye exam: Present: EOMI, normal appearance, PERRL - ENT ENT exam: Present: mucous membranes moist (No thrush) - Neck Neck exam: Present: normal inspection - Respiratory Respiratory exam: Present: decreased breath sounds - Cardiovascular Cardiovascular exam: Present: irregular rhythm - GI/Abdominal Exam GI/Abdominal exam: Present: normal bowel sounds, soft. Absent: tenderness - Extremities Exam Extremities exam: Present: pedal edema. Absent: normal inspection, tenderness - Neurological Exam Neurological exam: Present: alert, oriented X3 - Psychiatric Psychiatric exam: Present: normal affect, normal mood. Absent: anxious, depressed, homicidal ideation, suicidal ideation - Skin Skin exam: Present: dry, warm Internal Medicine - CN: Reslt - Labs CBC & Chem 7: 10/22/16 06:38 10/22/16 06:38 Labs: Short CBC 10/22/16 Range/Units 06:38 WBC 11.5 H (4.3-11.1) K/mcL Hgb 7.9 L (11.5-15.4) g/dL Hct 25.9 L (35.3-44.9) % Plt Count 315 (140-400) K/mcL Neutrophils # 8.8 (1.6-8.9) K/mcL BMP 10/22/16 06:38 Sodium 141 Potassium 3.6 Chloride 102 Carbon Dioxide 32 H BUN 34 H Creatinine 1.68 H Glucose 104 H Calcium 8.9 - ABG Interpretation ABG results: ABG ABG pH 7.51 pH Units (7.32-7.45) H 10/20/16 06:55 ABG pCO2 47 mmHg (35-45) H 10/20/16 06:55 ABG pO2 140 mmHg (85-104) H 10/20/16 06:55 ABG O2 Saturation 99 % (95-98) H 10/20/16 06:55 PT/INR, D-dimer PT 12.1 Seconds (9.4-12.1) 10/19/16 13:55 - Impressions Impressions Retroperitoneum Ultrasound 10/21/16 16:00 IMPRESSION: Atrophic bilateral kidneys, right greater than left. No hydronephrosis. D/ / Gelacio Flood MD / Gelacio Flood MD Interpreting Provider: Gelacio Flood MD Consult Discharge Plan - Plan Referrals: Meenu Rascon CNP [Primary Care Provider] - 10/27/16 3:00 pm Palliative Quality Palliative Quality: Screen for Code Status: Yes, Screen for Goals of Care: Yes, Screen for Pain: Yes, If Pain Regimen Started, Initiate Bowel Regimen: Yes, Screen for Nausea/Vomitting: Yes Code Status: 10/19/16 11:43 Resuscitation Status: Active [RES] Routine Comment: Resuscitation Status: Full Code Resuscitation Status: Active [RES] Routine Resuscitation Status: DNR-Comfort Care-Arrest Comment:
[2016-10-22] MEDS: Budesonide/Formoterol 80/4.5 MDI IH SCH ×2 (11:18→19:39)
--- NOTE | 2016-10-22 11:33 | Discharge Summary ---
<Bairon Alvarez - Last Filed: 10/22/16 11:54> Date of Encounter: 10/22/16 Time of Encounter: 11:30 - Discharge Diagnosis (1) Acute and chronic respiratory failure Priority: Primary Status: Acute Qualifiers: Qualified Code(s): J96.20 - Acute and chronic respiratory failure, unspecified whether with hypoxia or hypercapnia (2) Acute exacerbation of chronic obstructive pulmonary disease (COPD) Priority: Primary Status: Acute (3) Pedal edema Priority: Secondary Status: Acute (4) Pulmonary edema Priority: Secondary Status: Acute Qualifiers: Qualified Code(s): J81.0 - Acute pulmonary edema (5) Iron deficiency anemia Priority: Secondary Status: Acute Qualifiers: Qualified Code(s): D50.9 - Iron deficiency anemia, unspecified (6) Atrial fibrillation Priority: Secondary Status: Acute Qualifiers: Qualified Code(s): I48.91 - Unspecified atrial fibrillation (7) Congenital single kidney Priority: Secondary Status: Chronic (8) Tobacco abuse Priority: Primary Status: Acute (9) CKD (chronic kidney disease) Priority: Secondary Status: Acute Qualifiers: Qualified Code(s): N18.9 - Chronic kidney disease, unspecified (10) DVT prophylaxis Priority: Secondary Status: Acute - Discharge Medications Prescriptions: Levofloxacin [Levaquin] 750 mg PO Q48H 2 Days Nicotine Patch [Nicoderm] 21 mg TD DAILY 30 Days predniSONE [PredniSONE] 10 mg PO DAILY #33 tablet Home Medications: Apixaban [Eliquis] 2.5 mg PO BID 10/10/16 [History] Omeprazole 20 mg PO DAILY 10/10/16 [History] Simvastatin [Zocor] 40 mg PO HS 10/10/16 [History] Albuterol Sulfate [Ventolin Hfa] 2 puff IH Q4H PRN 10/19/16 [History] Aspirin 81 mg PO DAILY 10/19/16 [History] Clopidogrel [Plavix] 75 mg PO DAILY 10/19/16 [History] Docusate [Colace] 100 mg PO BID 10/19/16 [History] Ferrous Gluconate 324 mg PO TID 10/19/16 [History] Fluticasone/Salmeterol [Advair 250-50 Diskus] 1 each IH Q12H 10/19/16 [History] Levothyroxine [Levothyroxine Sodium] 137 mcg PO DAILY@0630 10/19/16 [History] Metoprolol [Lopressor] 25 mg PO TID 10/19/16 [History] Polyethylene Glycol 3350 [MiraLAX Powder Bulk 17.9 Oz] 1 scoop PO DAILY PRN 08/31 [History] Ranitidine HCl [Acid Reservations Manager] 150 mg PO DAILY PRN 10/19/16 [History] Sennosides [Senokot] 8.6 mg PO DAILY 10/19/16 [History] Levofloxacin [Levaquin] 750 mg PO Q48H 2 Days 10/22/16 [Rx] Nicotine Patch [Nicoderm] 21 mg TD DAILY 30 Days 10/22/16 [Rx] predniSONE [PredniSONE] 10 mg PO DAILY #33 tablet 10/22/16 [Rx] Allergies/Adverse Reactions: Allergies diphenhydramine [From Benadryl] Allergy (Verified 10/10/16 18:03) Difficulty Breathing ivp dye Allergy (Uncoded 10/10/16 15:35) See Comments Procedures/tests Complete & Pending: Procedures Performed prior 72 hours Category Date Time Status CT chest w/o contrast [CT chest wo con] [CT] Stat Cat Scan 10/20/16 14:10 Completed US retroperitoneal comp [US] Stat Exams 10/21/16 16:00 Completed ECG 12 lead ECG [ECG] Stat Y 10/19/16 11:43 Ordered EV echocardiogram Routine Y 10/20/16 12:14 Completed Date of admission: 10/19/16 13:39 Primary care physician: Meenu Rascon CNP Consults: 10/19/16 11:46 Consult to Physical Therapy [CONS] Routine Comment: Evaluate, develop and implement POC Reason for Consult: pt eval Consult to Technology Applications Consultant [CONS] Routine Reason for SW Consult: d/c planning 10/19/16 11:50 Consult to Nurse Navigator [CONS] Routine Comment: 10/19/16 12:15 Consult to Respiratory Therapy [CONS] Routine Reason for Consult: BiPAP Call Completed: No 10/19/16 12:18 Consult to Nutrition [CONS] Routine Comment: Consulting Provider: NUTRITION Reason for Dietary Consult: Other 10/19/16 13:15 Consult to Invasive Line Access Team [CONS] Routine Reason for Consult: poor venous access Line Type: EPIV PICC line indications: Limited vascular access Time Notified: 13:15 Call Completed: Yes 10/19/16 15:23 Consult to Pulmonology [CONS] Routine Consulting Provider: Pulm Crit Care & Sleep Maribell Reason for Consult: resp failure, copd, hcap Call Completed: Yes 10/20/16 17:19 Consult to Technology Applications Consultant [CONS] Routine Reason for SW Consult: Adan hylton need BIPAP on Discharge. 10/21/16 18:35 Consult to Palliative Care [CONS] Routine Comment: Consulting Provider: Palliative Care Maribell Reason for Consult: Patient has new CHF, and has had repeated hospitalizations for respiratory failure. She is a current smoker and unwilling to make lifestyle changes. Time Notified: 18:35 Call Completed: No - Patient Status Disposition: Transfer SNF Condition: Good Functional capacity at discharge: uses cane/walker Overall status at discharge: patient is progressing back to baseline - Discharge Instructions Instructions: Prednisone (By mouth), Nicotine (Absorbed through the skin), Levofloxacin (By mouth), Heart Failure (DC), Atrial Fibrillation (DC), Diabetes Mellitus Type 2 in Adults (DC), Chronic Obstructive Pulmonary Disease (DC), Chronic Hypertension (DC), Anemia (GEN), Cigarette Smoking and Your Health, Research Worker Kitchen (GEN) Follow Up With: Meenu Rascon CNP [Primary Care Provider] - 10/27/16 3:00 pm - Diet and Activity Activity: as per physical therapy Diet: advance to your usual diet Hospital course: Ms. Hardy is a 81 year old female with the past medical history of COPD ( O@ DEPENDANT) WITH CONTINUED TOBACCO ABUSE who was admitted 2 [facility] with acute exacerbation of COPD. Initially there was concerns for possible PNA and she was treated with broad sprectrum antibiotics. Patient had an uncomplicated clinical course and had a marked improvement. Today she is back to her baseline pulmonary status. Lungs are clear on exam. It was noted that she had an iron deficicency anemia on admission. However her Hg was stable. She refuses to take any iron products stating she dose not want constipation. I would recommend that she has a colonoscopy as an outpatient as she has an iron deficiciency anemia. we will also order a follow up Hg at her rehab. We will discharge her today to complete a course of levofloxacin and also a 2 week taper of prednisone. She was qualified for BIPAP and we will send her with instructions for BIPAP to Rehab. Patient has voiced back her understanding and agreement to the above plan. - Time Spent with Patient Total time spent providing and/or coordinating discharge services: Greater than 30 minutes - Constitutional Vitals: Temp Pulse Resp BP Pulse Ox 98.2 F 85 18 111/71 100 10/22/16 11:05 10/22/16 11:05 10/22/16 11:05 10/22/16 11:05 10/22/16 11:05 General appearance: Present: mild distress, underweight. Absent: answers questions appropriately - Head Head exam: Present: atraumatic, normocephalic - Eye Eye exam: Present: PERRL, conjuntiva pink, sclera anicteric Pupils: Present: PERRL - Neck Neck exam general surgery: Present: supple, trachea midline. Absent: lymphadenopathy - Respiratory Respiratory exam: Present: CTAB. Absent: accessory muscle use, rales, rhonchi, wheezes Additional comments: globally diminished. this is likely her baseline exam. - Cardiovascular Cardiovascular exam: Present: RRR, +S1, +S2. Absent: diastolic murmur, gallop, rubs, systolic murmur - GI/Abdominal GI/Abdominal exam: Present: normal bowel sounds, soft, no peritoneal signs. Absent: distended, tenderness - Extremities Exam Extremities exam: Present: warm, radial pulses palpable and symetrical. Absent : calf tenderness, cyanotic, pedal edema - Neurological Exam Neurological exam: Present: CN II-XII intact, oriented X3, no focal deficits. Absent: pronater drift, facial droop, speech deficit - Skin Skin exam: Present: dry, intact <Anirudh Sanchez - Last Filed: 10/22/16 18:43> Date of Encounter: 10/22/16 Procedures/tests Complete & Pending: Procedures Performed prior 72 hours Category Date Time Status CT chest w/o contrast [CT chest wo con] [CT] Stat Cat Scan 10/20/16 14:10 Completed US retroperitoneal comp [US] Stat Exams 10/21/16 16:00 Completed EV echocardiogram Routine Y 10/20/16 12:14 Completed Date of admission: 10/19/16 13:39 Primary care physician: Meenu Rascon CNP Consults: 10/19/16 11:46 Consult to Physical Therapy [CONS] Routine Comment: Evaluate, develop and implement POC Reason for Consult: pt eval Consult to Technology Applications Consultant [CONS] Routine Reason for SW Consult: d/c planning 10/19/16 11:50 Consult to Nurse Navigator [CONS] Routine Comment: 10/19/16 12:15 Consult to Respiratory Therapy [CONS] Routine Reason for Consult: BiPAP Call Completed: No 10/19/16 12:18 Consult to Nutrition [CONS] Routine Comment: Consulting Provider: NUTRITION Reason for Dietary Consult: Other 10/19/16 13:15 Consult to Invasive Line Access Team [CONS] Routine Reason for Consult: poor venous access Line Type: EPIV PICC line indications: Limited vascular access Time Notified: 13:15 Call Completed: Yes 10/19/16 15:23 Consult to Pulmonology [CONS] Routine Consulting Provider: Pulm Crit Care & Sleep Maribell Reason for Consult: resp failure, copd, hcap Call Completed: Yes 10/20/16 17:19 Consult to Technology Applications Consultant [CONS] Routine Reason for SW Consult: Will warner need BIPAP on Discharge. 10/21/16 18:35 Consult to Palliative Care [CONS] Routine Comment: Consulting Provider: Palliative Care Maribell Reason for Consult: Patient has new CHF, and has had repeated hospitalizations for respiratory failure. She is a current smoker and unwilling to make lifestyle changes. Time Notified: 18:35 Call Completed: No Hospital course: Ms. Hardy is a 81 year old female - Time Spent with Patient Total time spent providing and/or coordinating discharge services: - Constitutional Vitals: Temp Pulse Resp BP Pulse Ox 97.9 F 87 18 119/65 96 10/22/16 16:17 10/22/16 16:17 10/22/16 16:17 10/22/16 16:17 10/22/16 16:17 - Attending Attestation I examined this patient and my medical decision-making was reviewed with the Resident Physician, Dr. Alvarez. I agree with the documented findings, disposition and treatment plan as described except to the extent set forth below. patient now tells me for the first time tthat she has been having loose dark stools at home, none since admission. I have ordered a rectal Dulcolax suppository and she had a moderate amount of pasty black stool. We will send a Hemoccult and a positive we will keep the patient in the hospital for EGD. At this timewe will stop antiplatelets and anticoagulation due to risk of active bleeding worsening hemorrhage.
--- NOTE | 2016-10-22 11:53 | Physician Discharge Referral ---
<Bairon Alvarez - Last Filed: 10/22/16 11:54> [facility] Referral Info Transfer To: ECF Provider in Charge after Transfer: PCP Institutional Level of Care: Skilled - Diagnosis (1) Acute and chronic respiratory failure Status: Acute (2) Acute exacerbation of chronic obstructive pulmonary disease (COPD) Status: Acute (3) Pedal edema Status: Acute (4) Pulmonary edema Status: Acute (5) Iron deficiency anemia Status: Acute (6) Atrial fibrillation Status: Acute (7) Congenital single kidney Status: Chronic (8) Tobacco abuse Status: Acute (9) CKD (chronic kidney disease) Status: Acute (10) DVT prophylaxis Status: Acute - Transfer Medications Prescriptions: Levofloxacin [Levaquin] 750 mg PO Q48H 2 Days Nicotine Patch [Nicoderm] 21 mg TD DAILY 30 Days predniSONE [PredniSONE] 10 mg PO DAILY #33 tablet Home Medications: Apixaban [Eliquis] 2.5 mg PO BID 10/10/16 [History] Omeprazole 20 mg PO DAILY 10/10/16 [History] Simvastatin [Zocor] 40 mg PO HS 10/10/16 [History] Albuterol Sulfate [Ventolin Hfa] 2 puff IH Q4H PRN 10/19/16 [History] Aspirin 81 mg PO DAILY 10/19/16 [History] Clopidogrel [Plavix] 75 mg PO DAILY 10/19/16 [History] Docusate [Colace] 100 mg PO BID 10/19/16 [History] Ferrous Gluconate 324 mg PO TID 10/19/16 [History] Fluticasone/Salmeterol [Advair 250-50 Diskus] 1 each IH Q12H 10/19/16 [History] Levothyroxine [Levothyroxine Sodium] 137 mcg PO DAILY@0630 10/19/16 [History] Metoprolol [Lopressor] 25 mg PO TID 10/19/16 [History] Polyethylene Glycol 3350 [MiraLAX Powder Bulk 17.9 Oz] 1 scoop PO DAILY PRN 08/31 [History] Ranitidine HCl [Acid Casting Finisher] 150 mg PO DAILY PRN 10/19/16 [History] Sennosides [Senokot] 8.6 mg PO DAILY 10/19/16 [History] Levofloxacin [Levaquin] 750 mg PO Q48H 2 Days 10/22/16 [Rx] Nicotine Patch [Nicoderm] 21 mg TD DAILY 30 Days 10/22/16 [Rx] predniSONE [PredniSONE] 10 mg PO DAILY #33 tablet 10/22/16 [Rx] Allergies/Adverse Reactions: Allergies diphenhydramine [From Benadryl] Allergy (Verified 10/10/16 18:03) Difficulty Breathing ivp dye Allergy (Uncoded 10/10/16 15:35) See Comments - Respiratory Orders Oxygen / L per min, Other (BIPAP at night. settings Bipap inspiratory pressure 18 Bipap Expiratory pressure 6 Rate 8 Fio2 40%) Smoking Cessation: Smoking cessation has been advised. For more information, call the [place] Tobacco Quit Line at 7-975-QOTQNOW. - Lab Orders Lab Orders: CBC (Please draw a CBC and BMP and forward results to facilty physician on 10/25/16. Reason for test are to follow up on Hg and Renal function.) - Ancillary Orders May use pressure relief devices daily prn - Advance Directives Living Will: No Power of Transport Medic: No Code Status: DNR-Arrest - Mobility Orders Other (Per PT/OT) - Rehabiliation Orders Rehab Potential: Fair Rehab Orders: Evaluation for Physical Therapy, Evaluation for Occupational Therapy - Diet Orders Cardiac CERTIFICATION: I certify that the transfer of the above named patient to an Extended Care Facility is necessary for the continuing treatment of the diagnosis listed. The above information is true and accurate reflection of patient's current condition. Confidential - Redisclosure prohibited without a patient's written consent. <Anirudh Sanchez - Last Filed: 10/22/16 18:45> [facility] Referral Info Provider in Charge after Transfer: PCP Institutional Level of Care: Skilled - Respiratory Orders Smoking Cessation: Smoking cessation has been advised. For more information, call the [place] Tobacco Quit Line at 2-516-ARFMNOW. CERTIFICATION: I certify that the transfer of the above named patient to an Extended Care Facility is necessary for the continuing treatment of the diagnosis listed. The above information is true and accurate reflection of patient's current condition. Confidential - Redisclosure prohibited without a patient's written consent. I examined this patient and my medical decision-making was reviewed with the Resident Physician, Dr. Alvarez. I agree with the documented findings, disposition and treatment plan as described.
[2016-10-22] MEDS ORDERED: Furosemide 20 MG/2 ML VIAL IVP ONE (12:00)
[2016-10-22] MEDS ORDERED: 0.9 % Sodium Chloride 250 ML ONE (12:10)
[2016-10-22] MEDS: *HR* Metoprolol 5 MG/5 ML VIAL IVP SCH (14:17)
[2016-10-22] MEDS ORDERED: Bisacodyl 10 MG RECTAL SUPPOSITORY RC ONE (15:06)
[2016-10-22] MEDS ORDERED: Bisacodyl 10 MG RECTAL SUPPOSITORY RC PRN (15:21)
--- NOTE | 2016-10-22 18:45 | Event Note ---
<Bairon Alvarez - Last Filed: 10/22/16 18:50> Date of Encounter: 10/22/16 Time of Encounter: 18:28 patient was ready for discharge. However now complaining of melena. with Hg and current medications concerning for GI bleed.hemoccult pending if positive will consult GI services. WE will hold off on DC for now. <Anirudh Sanchez - Last Filed: 10/22/16 19:08> Date of Encounter: 10/22/16 I examined this patient and my medical decision-making was reviewed with the Resident Physician, Dr. Alvarez. I agree with the documented findings, disposition and treatment plan as described. we will keep the patient in the hospital overnight and repeat Hemoccult, hemoglobin and hematocrit in the morning.
[2016-10-23] MEDS: Ipratropium/Albuterol Neb 3 ML IH SCH ×5 (03:49→19:33)
[2016-10-23] MEDS: Famotidine 20 MG/2 ML VIAL IVP SCH (05:57)
[2016-10-23] MEDS: Acetaminophen 325 MG TABLET PO PRN (06:07)
[2016-10-23] MEDS: Budesonide/Formoterol 80/4.5 MDI IH SCH ×2 (07:41→19:33)
[2016-10-23] MEDS: Nicotine 21 MG PATCH.TD24 TD SCH (08:30)
[2016-10-23] MEDS: predniSONE 20 MG TABLET PO SCH (08:31)
--- NOTE | 2016-10-23 09:05 | Palliative Progress Note ---
Date of Encounter: 10/23/16 Time of Encounter: 08:00 - Assessment and plan (1) Dyspnea Current Visit: Yes Status: Acute Assessment and plan: The patient is feeling much better, and as per hospitalist team Qualifiers: Dyspnea type: unspecified Qualified Code(s): R06.00 - Dyspnea, unspecified (2) Goals of care, counseling/discussion Current Visit: Yes Status: Acute Assessment and plan: Patient was clear in her desire to be a DNR CCA, she will discuss with her family about her wishes to limit time on a ventilator. She will need advanced directives done, however she may be discharged today. If this is the case she can get these done the ECF that she will be discharged to. (3) HCAP (healthcare-associated pneumonia) Current Visit: Yes Status: Acute Assessment and plan: No fever, no tachycardia blood cultures negative thus far white count is about the same as yesterday. Plan as per hospitalist team. (4) Pedal edema Current Visit: Yes Status: Acute Assessment and plan: This is improving. - Time Spent With Patient Total time spent is greater than 50% in coordination of care (as documented) at patient's floor/unit and/or counseling patient: - Subjective Interval history: The patient is feeling good this morning, however yesterday she did note a black tarry stool discharge was held up pending labs on this. He has no complaint of this morning. - Constitutional Vitals: Abnormal lab results WBC 11.5 K/mcL (4.3-11.1) H 10/22/16 06:38 RBC 2.70 M/mcL (3.82-4.97) L 10/22/16 06:38 Hgb 7.9 g/dL (11.5-15.4) L 10/22/16 06:38 Hct 25.9 % (35.3-44.9) L 10/22/16 06:38 MCHC 30.5 g/dL (31.6-35.5) L 10/22/16 06:38 Reticulocyte # 0.11 M/mcL (0.05-0.10) H 10/20/16 08:45 Monocytes # 1.4 K/mcL (0.0-1.3) H 10/22/16 06:38 Immature Plt Fraction 7.1 % (1.1-6.1) H 10/22/16 06:38 Hypochromasia Present (Not Present) A 10/22/16 06:38 Poikilocytosis 1+ (Not Present) A 10/22/16 06:38 Anisocytosis 1+ (Not Present) A 10/22/16 06:38 Microcytosis Present (Not Present) A 10/22/16 06:38 Macrocytosis Present (Not Present) A 10/22/16 06:38 Spherocytes 1+ (Not Present) A 10/22/16 06:38 Ovalocytes 1+ (Not Present) A 10/22/16 06:38 Percent Retic 3.9 % (1.6-2.8) H 10/20/16 08:45 Retic Hgb Equivalent 25.4 pg (28.61-36.33) L 10/20/16 08:45 ABG pH 7.51 pH Units (7.32-7.45) H 10/20/16 06:55 ABG pCO2 47 mmHg (35-45) H 10/20/16 06:55 ABG pO2 140 mmHg (85-104) H 10/20/16 06:55 ABG HCO3 37.5 mEQ/L (21-27) H 10/20/16 06:55 ABG Total CO2 38.9 mEq/L (20-26) H 10/20/16 06:55 ABG O2 Saturation 99 % (95-98) H 10/20/16 06:55 ABG Base Excess 13.1 mEq/L (-2.0 to 3.0) H 10/20/16 06:55 Carbon Dioxide 32 mEq/L (19-29) H 10/22/16 06:38 BUN 34 mg/dL (7-20) H 10/22/16 06:38 Creatinine 1.68 mg/dL (0.57-1.11) H 10/22/16 06:38 Est GFR ( Amer) 36 (> 60) L 10/22/16 06:38 Est GFR (Non-Af Amer) 29 (> 60) L 10/22/16 06:38 Glucose 104 mg/dL (70-99) H 10/22/16 06:38 POC Glucose 160 (58-89) H 10/22/16 18:36 Iron 21 mcg/dL (50-170) L 10/20/16 08:45 % Saturation 6 % (15-50) L 10/20/16 08:45 B-Natriuretic Peptide 427 pg/mL (0-100) H 10/19/16 13:55 Albumin 2.9 g/dL (3.5-5.0) L 10/19/16 13:55 Albumin/Globulin Ratio 0.9 (1.1-2.2) L 10/19/16 13:[address] [place] 1.029 (1.010-1.025) H 10/20/16 11:05 Urine Protein 30 mg/dL (Neg-Trace) H 10/20/16 11:05 Urine Ketones Trace mg/dL (Negative) H 10/20/16 11:05 Urine Blood Moderate (Negative) H 10/20/16 11:05 Urine Microscopic RBC 5-15 per hpf (0-3) H 10/20/16 11:05 Urine Microscopic WBC 5-15 per hpf (0-3) H 10/20/16 11:05 Ur Squamous Epith Cells Many per lpf (None-Few) H 10/20/16 11:05 Urine Yeast Many per hpf (None Seen) H 10/20/16 11:05 Ur Culture Indicated? YES (NO) A 10/20/16 11:05 General appearance: Present: no acute distress - Head Head exam: Present: atraumatic, normal inspection - ENT ENT exam: Present: mucous membranes moist - Respiratory Respiratory exam: Present: decreased breath sounds - Cardiovascular Cardiovascular exam: Present: irregular rhythm - GI/Abdominal GI/Abdominal exam: Present: normal bowel sounds, soft. Absent: tenderness - Extremities Exam Extremities exam: Present: normal inspection. Absent: pedal edema (Trace at most ), tenderness - Neurological Exam Neurological exam: Present: alert, oriented X3 - Psychiatric Psychiatric exam: Absent: agitated, anxious - Skin Skin exam: Present: dry, warm Palliative Quality Palliative Quality: Screen for Code Status: Yes, Screen for Goals of Care: Yes, Screen for Pain: Yes, If Pain Regimen Started, Initiate Bowel Regimen: Yes, Screen for Nausea/Vomitting: Yes Code Status: 10/19/16 11:43 Resuscitation Status: Active [RES] Routine Comment: Resuscitation Status: Full Code Resuscitation Status: Active [RES] Routine Comment: Resuscitation Status: DNR-Comfort Care-Arrest - Labs CBC & Chem 7: 10/22/16 06:38 10/22/16 06:38 Labs: Laboratory Results - last 24 hr 10/22/16 10/22/16 10/22/16 09:46 11:07 18:30 POC Glucose 125 H Stool Occult Blood Negative Blood Type O NEGATIVE Antibody Screen NEGATIVE Crossmatch See Detail 10/22/16 18:36 POC Glucose 160 H Stool Occult Blood Blood Type Antibody Screen Crossmatch - ABG Interpretation ABG results: ABG ABG pH 7.51 pH Units (7.32-7.45) H 10/20/16 06:55 ABG pCO2 47 mmHg (35-45) H 10/20/16 06:55 ABG pO2 140 mmHg (85-104) H 10/20/16 06:55 ABG O2 Saturation 99 % (95-98) H 10/20/16 06:55 PT/INR, D-dimer PT 12.1 Seconds (9.4-12.1) 10/19/16 13:55 Consult Discharge Plan - Plan Instructions: Prednisone (By mouth), Nicotine (Absorbed through the skin), Levofloxacin (By mouth), Heart Failure (DC), Atrial Fibrillation (DC), Diabetes Mellitus Type 2 in Adults (DC), Chronic Obstructive Pulmonary Disease (DC), Chronic Hypertension (DC), Anemia (GEN), Cigarette Smoking and Your Health, Mesh Man (GEN) Referrals: Meenu Rascon CNP [Primary Care Provider] - 10/27/16 3:00 pm Prescriptions: Levofloxacin [Levaquin] 750 mg PO Q48H 2 Days Nicotine Patch [Nicoderm] 21 mg TD DAILY 30 Days predniSONE [PredniSONE] 10 mg PO DAILY #33 tablet
[2016-10-23 10:20] LABS: Basophils % 0.1 %; Eosinophils % 0.3 %; Hematocrit 31.8 % (35.3-44.9); Immature Granulocytes % 0.7 % (0-4); Lymphocytes # 1.4 K/mcL (0.6-4.6); Lymphocytes % 11.8 %; Mean Corpuscular HGB Conc 30.8 g/dL (31.6-35.5); Mean Corpuscular Hemoglobin 30.1 pg (28.0-33.3); Mean Corpuscular Volume 97.5 fL (83.0-100.0); Mean Platelet Volume 11.4 fL (9.4-12.4); Monocytes # 1.6 K/mcL (0.0-1.3); Monocytes % 13.6 %; Neutrophils # 8.7 K/mcL (1.6-8.9); Platelet Count 288 K/mcL (140-400); Red Blood Count 3.26 M/mcL (3.82-4.97); Red Cell Distribution Width 14.2 % (11.5-14.5); Segmented Neutrophils % 73.5 %
[2016-10-23 10:24] LABS: Hemoglobin 9.8 g/dL (11.5-15.4)
[2016-10-23 10:31] LABS: Magnesium 1.8 mg/dL (1.6-2.6)
[2016-10-23] MEDS: *HR* Metoprolol 5 MG/5 ML VIAL IVP SCH (13:56)
[2016-10-23] MEDS: Levofloxacin 750 MG/150 ML 750 MG/150 ML BAG IVPB SCH (13:58)
[2016-10-23] MEDS ORDERED: Bisacodyl 10 MG RECTAL SUPPOSITORY RC ONE (14:16)
[2016-10-23 15:58] VITALS: BP 117/73
--- NOTE | 2016-10-23 18:43 | Discharge Summary ---
<Bairon Alvarez - Last Filed: 10/23/16 18:43> Date of Encounter: 10/23/16 Time of Encounter: 18:42 - Discharge Diagnosis (1) Acute and chronic respiratory failure Status: Acute (2) Acute exacerbation of chronic obstructive pulmonary disease (COPD) Status: Acute (3) Pedal edema Status: Acute (4) Pulmonary edema Status: Acute (5) Iron deficiency anemia Status: Acute (6) Atrial fibrillation Status: Acute (7) Congenital single kidney Status: Chronic (8) Tobacco abuse Status: Acute (9) CKD (chronic kidney disease) Status: Acute (10) DVT prophylaxis Status: Acute - Discharge Medications Prescriptions: Levofloxacin [Levaquin] 750 mg PO Q48H 2 Days Lisinopril 2.5 mg PO DAILY #30 tablet Nicotine Patch [Nicoderm] 21 mg TD DAILY 30 Days predniSONE [PredniSONE] 10 mg PO DAILY #33 tablet Home Medications: Apixaban [Eliquis] 2.5 mg PO BID 10/10/16 [History] Omeprazole 20 mg PO DAILY 10/10/16 [History] Simvastatin [Zocor] 40 mg PO HS 10/10/16 [History] Albuterol Sulfate [Ventolin Hfa] 2 puff IH Q4H PRN 10/19/16 [History] Aspirin 81 mg PO DAILY 10/19/16 [History] Docusate [Colace] 100 mg PO BID 10/19/16 [History] Ferrous Gluconate 324 mg PO TID 10/19/16 [History] Fluticasone/Salmeterol [Advair 250-50 Diskus] 1 each IH Q12H 10/19/16 [History] Levothyroxine [Levothyroxine Sodium] 137 mcg PO DAILY@0630 10/19/16 [History] Metoprolol [Lopressor] 25 mg PO TID 10/19/16 [History] Polyethylene Glycol 3350 [MiraLAX Powder Bulk 17.9 Oz] 1 scoop PO DAILY PRN 08/31 [History] Ranitidine HCl [Acid Herb Grower] 150 mg PO DAILY PRN 10/19/16 [History] Sennosides [Senokot] 8.6 mg PO DAILY 10/19/16 [History] Levofloxacin [Levaquin] 750 mg PO Q48H 2 Days 10/22/16 [Rx] Nicotine Patch [Nicoderm] 21 mg TD DAILY 30 Days 10/22/16 [Rx] predniSONE [PredniSONE] 10 mg PO DAILY #33 tablet 10/22/16 [Rx] Lisinopril 2.5 mg PO DAILY #30 tablet 10/23/16 [Rx] Metoprolol [Lopressor] 25 mg PO BID tablet 10/23/16 [Rx] Allergies/Adverse Reactions: Allergies diphenhydramine [From Benadryl] Allergy (Verified 10/10/16 18:03) Difficulty Breathing ivp dye Allergy (Uncoded 10/10/16 15:35) See Comments Procedures/tests Complete & Pending: Procedures Performed prior 72 hours Category Date Time Status US retroperitoneal comp [US] Stat Exams 10/21/16 16:00 Completed Date of admission: 10/19/16 13:39 Primary care physician: Meenu Rascon CNP Consults: 10/19/16 11:46 Consult to Physical Therapy [CONS] Routine Comment: Evaluate, develop and implement POC Reason for Consult: pt eval Consult to Watch Adjuster [CONS] Routine Reason for SW Consult: d/c planning 10/19/16 11:50 Consult to Nurse Navigator [CONS] Routine Comment: 10/19/16 12:15 Consult to Respiratory Therapy [CONS] Routine Reason for Consult: BiPAP Call Completed: No 10/19/16 12:18 Consult to Nutrition [CONS] Routine Comment: Consulting Provider: NUTRITION Reason for Dietary Consult: Other 10/19/16 13:15 Consult to Invasive Line Access Team [CONS] Routine Reason for Consult: poor venous access Line Type: EPIV PICC line indications: Limited vascular access Time Notified: 13:15 Call Completed: Yes 10/19/16 15:23 Consult to Pulmonology [CONS] Routine Consulting Provider: [facility] [place] Reason for Consult: resp failure, copd, hcap Call Completed: Yes 10/20/16 17:19 Consult to Watch Adjuster [CONS] Routine Reason for SW Consult: Will warner need BIPAP on Discharge. 10/21/16 18:35 Consult to Palliative Care [CONS] Routine Comment: Consulting Provider: [facility] [place] Reason for Consult: Patient has new CHF, and has had repeated hospitalizations for respiratory failure. She is a current smoker and unwilling to make lifestyle changes. 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 Report results to detention physician. if hemoglobin drops please hold Eliquis. Mrs. Hardy will require a close follow-up with surgery for EGD and colonoscopy. - Diet and Activity Activity: as per physical therapy Diet: advance to your usual diet Hospital course: Ms. Hardy is a 81 year old female with the past medical history of COPD ( O2 DEPENDANT) with continued tobacco abuse, who was admitted to [facility] with acute exacerbation of COPD. Initially there was concerns for possible PNA and she was treated with broad sprectrum antibiotics. Patient had an uncomplicated clinical course and had a marked improvement. Today she is back to her baseline pulmonary status. Lungs are clear on exam. It was noted that she had an iron deficicency anemia on admission. However her Hg was stable. She had 2 hemmoccult that were negative. I do She I would recommend that she has a colonoscopy as an outpatient as she has an iron deficiciency anemia. We will set her up with Dr. Kraft for EGD and Colonoscopy. She had an echocardiogram that showed an EF of 40%. This is likley secondary to her pulmonary issues and her Afib. She will need to follow up with cardiology as well. She is on a beta zack and we will start her on a low dose of lisinopril that should be uptitrated along with her beta zack as an outpatient. We will make a follow up appointment with cardiology. We will also order a follow up Hg at her rehab. We will discharge her today to complete a course of levofloxacin and also a 2 week taper of prednisone. She was qualified for BIPAP and we will send her with instructions for BIPAP to Rehab. We will continue her low dose eliquis and stop her plavix as she has not had any recent stents and the combination of these meds would increase her risk of bleeding. Patient has voiced back her understanding and agreement to the above plan. - Time Spent with Patient Total time spent providing and/or coordinating discharge services: - Constitutional Vitals: Temp Pulse Resp BP Pulse Ox 98.1 F 109 18 117/73 98 10/23/16 15:54 10/23/16 15:54 10/23/16 16:04 10/23/16 15:54 10/23/16 16:04 General appearance: Present: mild distress, underweight. Absent: answers questions appropriately - Head Head exam: Present: atraumatic, normocephalic - Eye Eye exam: Present: PERRL, conjuntiva pink, sclera anicteric Pupils: Present: PERRL - Neck Neck exam general surgery: Present: supple, trachea midline. Absent: lymphadenopathy - Respiratory Respiratory exam: Present: CTAB. Absent: accessory muscle use, rales, rhonchi, wheezes - Cardiovascular Cardiovascular exam: Present: irregular rhythm, +S1, +S2. Absent: diastolic murmur, gallop, rubs, systolic murmur - GI/Abdominal GI/Abdominal exam: Present: normal bowel sounds, soft, no peritoneal signs. Absent: distended, tenderness - Extremities Exam Extremities exam: Present: pedal edema (minimal), warm, radial pulses palpable and symetrical. Absent: calf tenderness, cyanotic - Skin Skin exam: Present: dry, intact <Anirudh Sanchez - Last Filed: 10/23/16 19:44> Date of Encounter: 10/23/16 Procedures/tests Complete & Pending: Procedures Performed prior 72 hours Category Date Time Status US retroperitoneal comp [US] Stat Exams 10/21/16 16:00 Completed Date of admission: 10/19/16 13:39 Primary care physician: Meenu Rascon CNP Consults: 10/19/16 11:46 Consult to Physical Therapy [CONS] Routine Comment: Evaluate, develop and implement POC Reason for Consult: pt eval Consult to Watch Adjuster [CONS] Routine Reason for SW Consult: d/c planning 10/19/16 11:50 Consult to Nurse Navigator [CONS] Routine Comment: 10/19/16 12:15 Consult to Respiratory Therapy [CONS] Routine Reason for Consult: BiPAP Call Completed: No 10/19/16 12:18 Consult to Nutrition [CONS] Routine Comment: Consulting Provider: NUTRITION Reason for Dietary Consult: Other 10/19/16 13:15 Consult to Invasive Line Access Team [CONS] Routine Reason for Consult: poor venous access Line Type: EPIV PICC line indications: Limited vascular access Time Notified: 13:15 Call Completed: Yes 10/19/16 15:23 Consult to Pulmonology [CONS] Routine Consulting Provider: [facility] [place] Reason for Consult: resp failure, copd, hcap Call Completed: Yes 10/20/16 17:19 Consult to Watch Adjuster [CONS] Routine Reason for SW Consult: Adan hylton need BIPAP on Discharge. 10/21/16 18:35 Consult to Palliative Care [CONS] Routine Comment: Consulting Provider: [facility] [place] Reason for Consult: Patient has new CHF, and has had repeated hospitalizations for respiratory failure. She is a current smoker and unwilling to make lifestyle changes. Time Notified: 18:35 Call Completed: No - Patient Status Functional capacity at discharge: uses cane/walker Overall status at discharge: patient is progressing back to baseline - Diet and Activity Activity: as per physical therapy Diet: advance to your usual diet Hospital course: Ms. Hardy is a 81 year old female - Time Spent with Patient Total time spent providing and/or coordinating discharge services: - Constitutional Vitals: Temp Pulse Resp BP Pulse Ox 98.1 F 109 18 117/73 98 10/23/16 15:54 10/23/16 15:54 10/23/16 16:04 10/23/16 15:54 10/23/16 16:04 - Attending Attestation I examined this patient and my medical decision-making was reviewed with the Resident Physician, Dr. Alvarez. I agree with the documented findings, disposition and treatment plan as described except to the extent set forth below. The patient had2 Hemoccult stool negative. Hemoglobin responded appropriately 2 transfusion. We will resume Eliquis, hhold Plavix. Close follow-up with detention physician will be required.
[2016-10-23] MEDS ORDERED: Aminoglycoside Consult 1 EACH MC ONE (19:44)
== END 2016-10-23 19:45 | DRG 190 ==
LOC: 2NENU → SUATTDRO 13:39
PROVIDERS: ADMIT Internal Medicine; ATTEND Internal Medicine

== ENCOUNTER 2016-12-08 02:40 | Inpatient (IN) ==
[2016-12-08] MEDS ORDERED: *HR* Midazolam HCl 5 MG/ML VIAL ONE (02:52)
[2016-12-08] MEDS ORDERED: *HR* FentaNYL (PF) 100 MCG/2 ML VIAL ONE (02:52)
[2016-12-08] MEDS ORDERED: 0.9 % Sodium Chloride 1,000 ML ONE (03:30)
[2016-12-08] MEDS ORDERED: Levofloxacin 750 MG/150 ML 750 MG/150 ML BAG IVPB ONE (03:40)
[2016-12-08] MEDS ORDERED: Piperacillin/Tazobactam 3.375 GM VIAL IVPB ONE (03:40)
[2016-12-08] MEDS ORDERED: D5% in Water (Mini-Bag+) 100 ML IVPB ONE (03:41)
[2016-12-08] MEDS ORDERED: D5% in Water 250 ML ONE (03:41)
[2016-12-08] MEDS ORDERED: Vancomycin 1,000 MG VIAL ONE (03:42)
--- NOTE | 2016-12-08 04:41 | Emergency Department Note ---
Disposition Clinical Impression: Respiratory failure Qualifiers: Chronicity: acute Respiratory failure complication: hypoxia Qualified Code(s): J96.01 - Acute respiratory failure with hypoxia Atrial fibrillation Qualifiers: Atrial fibrillation type: unspecified Qualified Code(s): I48.91 - Unspecified atrial fibrillation Pneumonia Qualifiers: Pneumonia type: due to unspecified organism Laterality: unspecified laterality Lung location: unspecified part of lung Qualified Code(s): J18.9 - Pneumonia, unspecified organism Disposition: Admitted As Inpatient Condition: Good Referrals: Meenu Rascon CNP [Primary Care Provider] - Time of Disposition: 05:21 General Adult HPI - General Stated complaint: resp distress/a fib Time Seen by Provider: 12/08/16 04:31 - Related Data Home Medications Medication Instructions Recorded Confirmed Apixaban [Eliquis] 2.5 mg PO BID 10/10/16 10/19/16 Omeprazole 20 mg PO DAILY 10/10/16 10/19/16 Simvastatin [Zocor] 40 mg PO HS 10/10/16 10/19/16 Albuterol Sulfate [Ventolin Hfa] 2 puff IH Q4H PRN 10/19/16 10/19/16 Aspirin 81 mg PO DAILY 10/19/16 10/19/16 Docusate [Colace] 100 mg PO BID 10/19/16 10/19/16 Fluticasone/Salmeterol [Advair 1 each IH Q12H 10/19/16 10/19/16 250-50 Diskus] Levothyroxine [Levothyroxine 137 mcg PO DAILY@0630 10/19/16 10/19/16 Sodium] Polyethylene Glycol 3350 [MiraLAX 1 scoop PO DAILY PRN 10/19/16 10/19/16 Powder Bulk 17.9 Oz] Ranitidine HCl [Acid Lumber Tailer] 150 mg PO DAILY PRN 10/19/16 10/19/16 Sennosides [Senokot] 8.6 mg PO DAILY 10/19/16 10/19/16 Previous Rx's Medication Instructions Recorded Nicotine Patch [Nicoderm] 21 mg TD DAILY 30 Days 10/22/16 Lisinopril 2.5 mg PO DAILY #30 tablet 10/23/16 Metoprolol [Lopressor] 25 mg PO BID tablet 10/23/16 Digoxin [Lanoxin] 0.125 mg PO Q48H #15 tablet 10/26/16 Metoprolol [Lopressor] 25 mg PO BID #60 10/26/16 Allergies Allergy/AdvReac Type Severity Reaction Status Date / Time diphenhydramine Allergy Difficulty Verified 10/10/16 18:03 [From Benadryl] Breathing ivp dye Allergy See Uncoded 10/10/16 15:35 Comments Past Medical History - Past Medical History Medical history: Reports: aortic aneurysm, atrial fibrillation, COPD, GERD, hyperlipidemia, hypertension, thyroid disease, other Surgical history: Reports: no surgical history Psychiatric history: Reports: no psych history - Social History Smoking Status: Current every day smoker Smokeless Tobacco Status: No Alcohol use: Reports: none Drug use: Reports: none Course Course Narrative: [facility] is now available and please refer to paper chart for previous H/P and managment. We will be admitting lola to ICU, we have started HCAP therapy. - Consultations Consultation #1: discussed case with Dr Sanchez and he accepts lola for admission. Time: 05:20 Vital Signs O2 Sat by Pulse Oximetry 100 12/08/16 02:52 O2 Sat by Pulse Oximetry 100 12/08/16 02:52
[2016-12-08] MEDS: FentaNYL (PF) 1,000 MCG in 0.9 % Sodium Chloride 80 ML IVC SCH (05:16)
[2016-12-08 05:20] LABS: Basophils # 0.1 K/mcL (0.0-0.2); Basophils % 0.7 %; Eosinophils # 0.6 K/mcL (0.0-0.6); Eosinophils % 4.7 %; Hematocrit 43.2 % (35.3-44.9); Hemoglobin 12.5 g/dL (11.5-15.4); Immature Granulocytes % 0.5 % (0-4); Lymphocytes # 3.5 K/mcL (0.6-4.6); Lymphocytes % 29.1 %; Mean Corpuscular HGB Conc 28.9 g/dL (31.6-35.5); Mean Corpuscular Hemoglobin 30.1 pg (28.0-33.3); Mean Corpuscular Volume 104.1 fL (83.0-100.0); Mean Platelet Volume 12.4 fL (9.4-12.4); Monocytes # 0.9 K/mcL (0.0-1.3); Monocytes % 7.1 %; Platelet Count 244 K/mcL (140-400); Red Blood Count 4.15 M/mcL (3.82-4.97); Red Cell Distribution Width 14.5 % (11.5-14.5); Segmented Neutrophils % 57.9 %
[2016-12-08 05:21] LABS: Hypochromasia Present (Not Present); Platelet Estimate Normal (Normal)
[2016-12-08 05:28] LABS: Clarity,Urine Cloudy (Clear); Color,Urine Yellow (Yellow); Glucose,Urine (UA) Normal (Normal)
[2016-12-08 05:29] LABS: Alanine Aminotransferase 9 Units/L (0-55); Albumin 3.1 g/dL (3.5-5.0); Albumin/Globulin Ratio 0.8 (1.1-2.2); Alkaline Phosphatase 83 Units/L (38-126); Aspartate Amino Transferase 18 Units/L (5-34); Bilirubin,Total < 0.3 mg/dL (0.2-1.2); Bilirubin,Urine Negative (Negative); Blood,Urine Small (Negative); Globulin 3.7 g/dL (2.4-3.5); Ketones,Urine Negative (Negative); Leukocyte Esterase,Urine Moderate (Negative); Lipase 121 Units/L (8-78); Nitrite,Urine Negative (Negative); Protein,Urine 100 mg/dL (Neg-Trace); Specific Gravity,Urine 1.021 (1.010-1.025); Total Protein 6.8 g/dL (6.0-8.3); Urobilinogen,Urine Normal (Normal)
[2016-12-08 05:30] LABS: Bacteria,Urine Few per hpf (None-Few); RBC,Urine 0-3 per hpf (0-3); Squamous Epithelial Cell,Urine Many per lpf (None-Few); WBC,Urine 30-50 per hpf (0-3)
[2016-12-08] MEDS ORDERED: Naloxone 0.4 MG/ML INJ IVP PRN (05:31)
[2016-12-08] MEDS ORDERED: Lacri-Lube 3.5 GM TUBE BOTH EYES PRN (05:35)
[2016-12-08] MEDS ORDERED: Ipratropium/Albuterol Neb 3 ML IH PRN (05:52)
--- NOTE | 2016-12-08 05:59 | Internal Med History&Physical ---
<Brett Price - Last Filed: 12/08/16 06:12> Date of Encounter: 12/08/16 Time of Encounter: 05:53 Assessment and Plan (1) Acute and chronic respiratory failure with hypoxia Current visit: Yes Status: Acute 81 y/o F hx of COPD, tobacco abuse presents in acute respiratory distress patient emergently intubated in ER (was 87% sPO2 on 15L O2 non rebreather), BiPAP was not trialed. she was hypotensive on presentation but quickly responded to 2L fluids CXR- whezzing right upper lobe anteriorly otherwise clear WBC 12 Lactic acid 2.2 2+ pitting edema echo 10/20/2016: LVEF 40% with indeterminant diastolic dysfunction due to atrial fibrillation, moderately dilated left atrium, moderately dilated right atrium and moderate mitral regurgitation Etiology: possible PNA, COPD exacerbation in setting of continued tobacco abuse , and CHF exacerbation Plan: duonebs, vanc, cefepime, azithromycin (atypical coverage), solumedrol, on exam patient does not have signs of fluid overload, plus with hypotension on presentation we will hold off on diuresis. Blood cultures sent. de-escalate antibiotics accordingly. GI and DVt prophylaxis (2) CHF (congestive heart failure) Current visit: Yes Status: Acute Interstitial edema identified on chest x-ray. BNP elevated at 686 2+ lower extremity edema Patient likely had acute respiratory failure secondary to acute decompensated heart failure in setting of advanced COPD Plan: As patient was hypotensive on presentation and required fluid resuscitation we will hold off on diuresis. Qualifiers: Congestive heart failure type: systolic Congestive heart failure chronicity : acute on chronic Qualified Code(s): I50.23 - Acute on chronic systolic ( congestive) heart failure (3) Pneumonia Current visit: Yes Status: Acute While pneumonia is on the differential list is less likely the cause of acute respiratory distress. Patient is afebrile, WBC mildly elevated at 12 without left shift. Patient in the past few months has been admitted multiple times for pneumonia and COPD Exacerbation and treated with IV antibiotics. Plan: Vancomycin, cefepime Azithromycin to cover atypicals Await blood cultures and de-escalate antibiotics based on sensitivities. Qualifiers: Pneumonia type: due to unspecified organism Laterality: unspecified laterality Lung location: unspecified part of lung Qualified Code(s): J18.9 - Pneumonia, unspecified organism (4) Atrial fibrillation Current visit: Yes Status: Chronic controlled. Presented in A. fib RVR with a rate of 158. Patient was also hypotensive. She really resuscitated with 2 L of fluid A. fib RVR Resolved and converted to sinus rhythm. On metoprolol and Eliquis at home. Plan: Continue metoprolol We will hold eliquis as patient is intubated and start lovenox 60mg SQ BID Qualifiers: Atrial fibrillation type: chronic Qualified Code(s): I48.2 - Chronic atrial fibrillation (5) Advanced COPD Current visit: Yes Status: Chronic COPD with exacerbation Plan: Antibiotics, steroids, scheduled DuoNeb's. (6) Tobacco abuse Current visit: Yes Status: Chronic patient according to EMR and continues to smoke. Plan: After patient is extubated she will receive smoking cessation education. (7) Elevated troponin Current visit: Yes Status: Acute troponin 0.08 EKG danielle rvr with rate [address] elevations or depressions likely demand ischemia plan: trend troponin. aspirin, bblocker, statin. patient on therapeutic lovenox for anticoagulation for afib. Internal Medicine - H&P: HPI Chief complaint: acute respiratory failure Admitted From: Long-term Nursing Facility Plans for Post Hospital Care: Transfer [facility] History of present illness: Ms. Hardy is a 81 year old female presents from group home with acute respiratory failure. Satting 87% on 15L nonrebreather. Patient was emergently intubated in ER. ON presentation patient was lethargic, hypoxic, hypotensive (60 /40), in afib rvr with rate of 158. Patient was fluid resuscitated 2L NS and responded well with BP 120/80 and converted back to sinus rhythm. CXR shows increased interstitial and patchy opacities in right lung. Troponin 0.08. BNP 686. EMR record indicates patient has had multiple admissions for COPD exaerbation and pneumonia. Last admission was on 10/19/16 She is a current smoker. Patient was given vanc, zosyn levaquin in the ER. Past Med Surg Social Fam HX - Past Medical History Medical history: aortic aneurysm, atrial fibrillation, COPD, GERD, hyperlipidemia, hypertension, thyroid disease, other Psychiatric history: no psych history - Past Surgical History Surgical History: no surgical history - Social History Smoking Status: Current every day smoker Smokeless Tobacco Status: No Alcohol use: none Drug use: none Internal Medicine - H&P: Meds Apixaban [Eliquis] 2.5 mg PO BID 10/10/16 [History] Omeprazole 20 mg PO DAILY 10/10/16 [History] Simvastatin [Zocor] 40 mg PO HS 10/10/16 [History] Albuterol Sulfate [Ventolin Hfa] 2 puff IH Q4H PRN 10/19/16 [History] Aspirin 81 mg PO DAILY 10/19/16 [History] Docusate [Colace] 100 mg PO BID 10/19/16 [History] Fluticasone/Salmeterol [Advair 250-50 Diskus] 1 each IH Q12H 10/19/16 [History] Levothyroxine [Levothyroxine Sodium] 137 mcg PO DAILY@0630 10/19/16 [History] Polyethylene Glycol 3350 [MiraLAX Powder Bulk 17.9 Oz] 1 scoop PO DAILY PRN 08/31 [History] Ranitidine HCl [Acid Assistant Shift Supervisor] 150 mg PO DAILY PRN 10/19/16 [History] Sennosides [Senokot] 8.6 mg PO DAILY 10/19/16 [History] Nicotine Patch [Nicoderm] 21 mg TD DAILY 30 Days 10/22/16 [Rx] Lisinopril 2.5 mg PO DAILY #30 tablet 10/23/16 [Rx] Metoprolol [Lopressor] 25 mg PO BID tablet 10/23/16 [Rx] Digoxin [Lanoxin] 0.125 mg PO Q48H #15 tablet 10/26/16 [Rx] Metoprolol [Lopressor] 25 mg PO BID #60 10/26/16 [Rx] 3 Allergy/AdvReac Type Severity Reaction Status Date / Time diphenhydramine Allergy Difficulty Verified 10/10/16 18:03 [From Benadryl] Breathing ivp dye Allergy See Uncoded 10/10/16 15:35 Comments ROS unobtainable: due to endotracheal tube All Systems PM: A 10-system review of systems was performed and is negative for pertinent findings except as documented above in the HPI. - Constitutional Vitals: Pulse Ox 100 12/08/16 02:52 - Other Additional findings: General: Sedated, on ventilator HEENT: Head atraumatic, normocephalic, PERRLA, absent Lymphadenopathy, Heart: Regular rate and rhythm with no murmur Lungs: Clear to auscultation bilaterally, RUL wheezing anteriorly Abdomen: Soft nontender, nondistended positive bowel sounds Extremities: 2+ pedal edema Neuro: sedated, intubated. b/l plantar response downward. Upper and lower DTR 1/ 4 Skin: left buttock scratch. otherwise warm and dry with no open sores or wounds. Vascular: Pedal and radialpulses 2 out of 4 Internal Med - H&P Results - Labs CBC & Chem 7: 12/08/16 02:45 12/08/16 02:45 <Ric Krishnan - Last Filed: 12/08/16 06:32> Date of Encounter: 12/08/16 Internal Medicine - H&P: HPI History of present illness: Ms. Hardy is a 81 year old female All Systems PM: A 10-system review of systems was performed and is negative for pertinent findings except as documented above in the HPI. - Constitutional Vitals: Temp Pulse Resp BP Pulse Ox 96.5 F L 93 16 103/48 100 12/08/16 06:14 12/08/16 06:14 12/08/16 06:14 12/08/16 06:14 12/08/16 06:14 Internal Med - H&P Results - Labs CBC & Chem 7: 12/08/16 02:45 12/08/16 02:45 - ABG Interpretation ABG results: 12/08/16 06:20 ABG pH 7.34 ABG pCO2 51 H ABG pO2 488 H ABG HCO3 27.5 H ABG Total CO2 29.1 H ABG O2 Saturation 100 H ABG Base Excess 1.1 - Attending Attestation I examined this patient and my medical decision-making was reviewed with the Resident Physician. I agree with the documented findings, disposition and treatment plan as described except to the extent set forth below. Ms Hardy is a 81-year-old female from a group home with a history of severe COPD, atrial fibrillation on eliquis, CKD who presents with acute respiratory failure. She was emergently intubated in the ER and placed on the ventilator. On arrival initial vital suggests atrial fibrillation with rate in the 150s to 130s. She was found with labored breathing, significant rest for distress, and unable to protect her airway requiring emergent intubation. She was initially hypotensive but briefly received 2 L IV fluid boluses with improvement of blood pressure and improvement of atrial fibrillation rate to the 90s. Of note she had been well enough this morning to visit with her PCP and was told that she had fluid in the lungs. EKG personally reviewed with a rate of 139 A. fib RVR, ST depression in the anterior lateral leads Chest x-ray reviewed by myself with interstitial congestion, possible early left lower lobe infiltrate or atelectasis. ROS 14 point review of systems reviewed as best as possible given presentation. Pertinent positive or negative as per HPI or otherwise reviewed as negative General -intubated and sedated Eyes - GRACIE. Eye lids intact. No scleral icterus ENT - Oral mucosa pink, dentition intact. External ear clear/dry/intact. No thyromegaly Lymphatics - No cervical/inguinal lympadenopathy Heart -irregularly irregular. S1 and S2 present. No added HS/murmurs appreciated. No elevated JVD appreciated. No calf swellings/erythema Lung - Coarse ventilator breath sounds No crackes/wheezes appreciated GI - Soft, non-tender. No hepatosplenomegaly/ascites. BS+ - No CVA/suprapubic tenderness or palpable bladder distension Skin - Intact. No rash/petechiae/ecchymosis. Warm extremities MSK - Joints with normal ROM. No joint swellings A/P Acute respiratory failure (on chronic - baseline 3L NC) suspect COPD flare, Pulm Edema Possible LLL PNA ??? on cxr - IV steroids, duonebs, azithro - empiric HAP - cefe/vanc for now - de-escalate as necessary - check TTE - hold diuretics for now given hypotension in the ED that responded to 2 L IVF bolus - blood cx pend AFib rvr - improved after fluid bolus - continue metoprolol, digoxin - check dig level - hold xarelto, temporarily place on lovenox 1mg/kg q12 for now CKD - stable Troponemia - likely demand, trend trop Hypothyroid - synthroid famotidine GI ppx Colace bowel regimen Peridex
[2016-12-08] MEDS ORDERED: Famotidine 20 MG/2 ML VIAL IVP SCH (06:00)
[2016-12-08] MEDS ORDERED: Vancomycin 1,000 MG in D5% in Water 250 ML IVPB ONE (06:00)
[2016-12-08 06:17] LABS: Bilirubin,Direct 0.1 mg/dL (0.0-0.5); Bilirubin,Indirect 0.2 mg/dL (0.0-1.2)
[2016-12-08 06:29] LABS: ABG Base Excess 1.1 mEq/L (-2.0 to 3.0); ABG HCO3 27.5 mEQ/L (21-27); ABG Oxygen Saturation 100 % (95-98); ABG PCO2 51 mmHg (35-45); ABG PH 7.34 pH Units (7.32-7.45); ABG PO2 488 mmHg (85-104); ABG TCO2 29.1 mEq/L (20-26)
[2016-12-08 06:30] LABS: Blood Gas FiO2 75 %
--- NOTE | 2016-12-08 06:42 | Pulmonology Consult Note ---
Date of Encounter: 12/08/16 Time of Encounter: 06:42 Assessment and Plan (1) Acute on chronic respiratory failure with hypoxemia Current Visit: Yes Status: Acute . This is a 81-year-old woman who presents with acute on chronic hypoxic hypercarbic respiratory failure which is likely secondary to heart failure complicated by severity of underlying COPD. She does have leukocytosis is concerning for underlying sepsis although there is no clear etiology at this time. She is requiring mechanical ventilator support and blood pressure is unstable. I spent 40min of Critical Care time with this patient. It involved decision making of high complexity to assess, manipulate, and support vital organ system failure and/or to prevent further life threatening deterioration of the patient' s condition. The time involved in the performance of separately reportable procedures was not counted toward critical care time. Management was reviewed during multidisciplinary critical care rounds. Neuropsych: Sedated for vent goal Perez to stop benzodiazepine start infusion of Precedex continue infusion of fentanyl. Daily sedation holiday.. Currently patient is not displaying any focal neurological deficits Pulm: Hypercarbic respiratory failure which is likely secondary to cardiogenic pulmonary edema with COPD exacerbation. Cannot exclude possibility of pneumonia at this time she is being covered broadly for this reason with antimicrobials. She is receiving scheduled DuoNeb's intravenous methylprednisolone as well. We have an ploy to low tidal volume ventilatory strategy acceptable oxygenation ventilation on last ABG upon on daily spontaneous breathing trial as tolerated although currently not a candidate. She is also receiving a ventilator bundle to prevent ventilator associated pneumonia Cards: History of systolic heart failure she had evidence of an NSTEMI reflected by increased troponin this is likely demand ischemia (hypoxia and afib ) we will continue to trend her troponin she is currently anticoagulated for underlying atrial fibrillation. Presented with A. fib with RVR if supported by blood pressure we will start low-dose beta zack. She is prescribed home calcium channel zack but with concern for acute on chronic heart failure I would opt for beta zack in this instance as tolerated. May need cardiology consult and echocardiogram if continues to significantly increase. Low blood pressure possibly related to sedation she is not displaying any any evidence of shock physiology. Diuresis for cardiogenic pulmonary edema as tolerated by blood pressure FEN-GI: Nothing by mouth for now PPI prophylaxis given Renal: Acute kidney injury possibly secondary to increased vascular congestion we will renally dose all medications and employee a renal protective strategy no current indication for renal replacement therapy and no evidence of hyperkalemia we will continue to follow this closely she is Gómez catheter in place to monitor strict I's and O's ID: Concern for sepsis possible pneumonia given severity respiratory presentation with leukocytosis. She is received broad-spectrum antimicrobials to cover for healthcare associated organisms as well as atypical pathogens. De- escalate in 24 hours if cultures negative urinary strep pneumo and Legionella have been sent lactate is normal Heme/Onc: She is being anticoagulated chronic atrial fibrillation. She received twice a day dosing of Lovenox I favor continuous infusion of heparin and chronically ill patient with some evidence of renal dysfunction .H&H is stable Endo: Glucose Monitored Integ/MSK: Skin Care per routine ICU Nursing Protocol to prevent ulcers. Lines: All lines examined without evidence of infection including: Dispo: She remains critically ill will stay in ICU CODE: At present full codeP er documenation by palliative care service her CODE STATUS had been changed to DNR-CCA with intubation. In talking with her daughter and healthcare power of real estate associate attorney Kathryn Morse she is unaware of this conversation and I do not see any formal documentation. The patient is unable or incompetent to participate in giving a history and/or making treatment decisions. The discussion was necessary for determining treatment decision. This discussion took place on the phone. The total meeting time was 10 minutes. (2) Heart failure, systolic, with acute decompensation Current Visit: Yes Status: Acute (3) Sepsis, unspecified organism Current Visit: Yes Status: Acute Qualifiers: Sepsis type: sepsis due to unspecified organism Qualified Code(s): A41.9 - Sepsis, unspecified organism (4) [facility] current use of anticoagulant Current Visit: Yes Status: Acute (5) Goals of care, counseling/discussion Current Visit: Yes Status: Acute (6) Atrial fibrillation Current Visit: Yes Status: Acute Qualifiers: Atrial fibrillation type: unspecified Qualified Code(s): I48.91 - Unspecified atrial fibrillation (7) Pneumonia Current Visit: Yes Status: Acute Qualifiers: Pneumonia type: due to unspecified organism Laterality: unspecified laterality Lung location: unspecified part of lung Qualified Code(s): J18.9 - Pneumonia, unspecified organism (8) Elevated troponin Current Visit: Yes Status: Acute History of Present Illness Consult date: 12/08/16 Requesting physician: Ric Krishnan Reason for consult: COPD Chief complaint: Shortness Of Breath History of present illness: This is a 81-year-old woman with past medical history of chronic respiratory failure COPD heart failure with reduced ejection fraction atrial fibrillation on long-term anticoagulation who presented to the ED and respiratory failure requiring intubation. I have obtained the history from the medical record and bedside nursing staff and her family as patient is unable to provide any history at this time. On presentation to the ED blood pressure is 133/79 with heart rate 158 and apparently the rhythm at that time was atrial fibrillation with rapid ventricular response she was on 15 L nonrebreather and was intubated subsequently. Post intubation blood pressure was noted to drop to 61/31 possibly related to sedation for the intubation itself. She received 2 L bolus of normal saline with improvement in blood pressure. She was started on broad- spectrum antimicrobials were both healthcare associated pneumonia and atypical pneumonia and steroids along with bronchodilators. At baseline she is anticoagulated with a NOAC and per family she has been diligent about taking this. She was admitted to this hospital with a similar presentation that did not require intubation but did require noninvasive ventilation support for approximately 24 hours I had the leisure of seeing the patient on that admission when she was treated for AECOPD and ADCHF. Per last visit with the patient she was still smoking although it is unclear to me if she continues to smoke. Past Med Surg Social Fam HX - Past Medical History Medical history: aortic aneurysm, atrial fibrillation, COPD, GERD, hyperlipidemia, hypertension, thyroid disease, other Psychiatric history: no psych history - Past Surgical History Surgical History: no surgical history - Social History Smoking Status: Current every day smoker Smokeless Tobacco Status: No Alcohol use: none Drug use: none Medications and Allergies Apixaban [Eliquis] 2.5 mg PO BID 10/10/16 [History] Omeprazole 20 mg PO DAILY 10/10/16 [History] Simvastatin [Zocor] 40 mg PO HS 10/10/16 [History] Albuterol Sulfate [Ventolin Hfa] 2 puff IH Q4H PRN 10/19/16 [History] Aspirin 81 mg PO DAILY 10/19/16 [History] Docusate [Colace] 100 mg PO BID 10/19/16 [History] Fluticasone/Salmeterol [Advair 250-50 Diskus] 1 each IH Q12H 10/19/16 [History] Levothyroxine [Levothyroxine Sodium] 137 mcg PO DAILY@0630 10/19/16 [History] Polyethylene Glycol 3350 [MiraLAX Powder Bulk 17.9 Oz] 1 scoop PO DAILY PRN 08/31 [History] Ranitidine HCl [Acid Section Leader Screen Printing] 150 mg PO DAILY PRN 10/19/16 [History] Sennosides [Senokot] 8.6 mg PO DAILY 10/19/16 [History] Lisinopril 2.5 mg PO DAILY #30 tablet 10/23/16 [Rx] Metoprolol [Lopressor] 25 mg PO BID tablet 10/23/16 [Rx] Digoxin [Lanoxin] 0.125 mg PO Q48H #15 tablet 10/26/16 [Rx] Bumetanide 0.5 mg PO BID 12/08/16 [History] Clopidogrel [Plavix] 75 mg PO DAILY 12/08/16 [History] Furosemide [Lasix] 20 mg PO DAILY 12/08/16 [History] Verapamil HCl [Verapamil ER] 180 mg PO DAILY 12/08/16 [History] 3 Allergy/AdvReac Type Severity Reaction Status Date / Time diphenhydramine Allergy Difficulty Verified 10/10/16 18:03 [From Benadryl] Breathing ivp dye Allergy See Uncoded 10/10/16 15:35 Comments All Systems: A 10-system review of systems was performed and is negative for pertinent findings except as documented above in the HPI. Physical Examination Vital Signs: Vital Signs, Last 4 Hours Temp Pulse Resp BP Pulse Ox 12/08/16 06:27 16 114/39 100 12/08/16 06:14 96.5 F L 93 16 103/48 100 12/08/16 05:55 16 100 General appearance: other (Sedated on vent appears comfortable she is arousable to voice) Eyes: nonicteric ENT: other (Endotracheal tube noted in satisfactory position) Auscultation: bilateral: wheezes (Rales bilaterally faint expiratory Wheezes) Cardiovascular: irregular rhythm Gastrointestinal: soft, non-tender Integumentary: normal Extremities: edema (Trace bilateral lower extremity edema) Musculoskeletal: no deformities non-focal exam, pupils equal and round Ventilator Settings Ventilator Settings: Ventilator Settings, Last 8 Hours Ventilator Mode A/C Ventilator Mode A/C Ventilator Tidal Volume 450 Setting Ventilator Tidal Volume 450 Setting Ventilator Respiratory Rate 16 Setting Ventilator Respiratory Rate 16 Setting Actual Respiratory Rate 16 Positive End Expiratory 5 Pressure Positive End Expiratory 5 Pressure Peak Inspiratory Airway 34 Pressure Results - Laboratory Findings CBC and BMP: 12/08/16 02:45 12/08/16 02:45 ABG ABG pH 7.34 pH Units (7.32-7.45) 12/08/16 06:20 ABG pCO2 51 mmHg (35-45) H 12/08/16 06:20 ABG pO2 488 mmHg (85-104) H 12/08/16 06:20 ABG O2 Saturation 100 % (95-98) H 12/08/16 06:20 Abnormal lab findings: Abnormal lab results WBC 12.0 K/mcL (4.3-11.1) H 12/08/16 02:45 MCV 104.1 fL (83.0-100.0) H 12/08/16 02:45 MCHC 28.9 g/dL (31.6-35.5) L 12/08/16 02:45 Hypochromasia Present (Not Present) A 12/08/16 02:45 ABG pCO2 51 mmHg (35-45) H 12/08/16 06:20 ABG pO2 488 mmHg (85-104) H 12/08/16 06:20 ABG HCO3 27.5 mEQ/L (21-27) H 12/08/16 06:20 ABG Total CO2 29.1 mEq/L (20-26) H 12/08/16 06:20 ABG O2 Saturation 100 % (95-98) H 12/08/16 06:20 POC Glucose 225 (58-89) H 12/08/16 06:06 Troponin I 0.08 ng/mL (0-0.03) H* 12/08/16 02:45 B-Natriuretic Peptide 686 pg/mL (0-100) H 12/08/16 02:45 Albumin 3.1 g/dL (3.5-5.0) L 12/08/16 02:45 Globulin 3.7 g/dL (2.4-3.5) H 12/08/16 02:45 Albumin/Globulin Ratio 0.8 (1.1-2.2) L 12/08/16 02:45 Lipase 121 Units/L (8-78) H 12/08/16 02:45 Urine Clarity Cloudy (Clear) A 12/08/16 02:45 Urine Protein 100 mg/dL (Neg-Trace) H 12/08/16 02:45 Urine Blood Small (Negative) H 12/08/16 02:45 Ur Leukocyte Esterase Moderate (Negative) H 12/08/16 02:45 Urine Microscopic WBC 30-50 per hpf (0-3) H 12/08/16 02:45 Ur Squamous Epith Cells Many per lpf (None-Few) H 12/08/16 02:45 - Diagnostic Findings Chest x-ray: report reviewed, image reviewed - Clinical Findings Intake & Output: Intake & Output 12/07/16 12/07/16 12/08/16 15:59 23:59 07:59 Weight 61.8 kg Consult Discharge Plan - Plan Referrals: Meenu Rascon, JUDICIAL ASSISTANT [Primary Care Provider] -
[2016-12-08 06:52] LABS: BUN/Creatinine Ratio 10 (6-26); Blood Urea Nitrogen 15 mg/dL (7-20); Calcium 10.1 mg/dL (8.6-10.8); Carbon Dioxide 28 mEq/L (19-29); Chloride 105 mEq/L (98-109); Glucose 245 mg/dL (70-99); Magnesium 1.7 mg/dL (1.6-2.6); Osmolality,Calculated 309 (280-300); Potassium 4.8 mEq/L (3.5-4.5); Sodium 145 mEq/L (136-145); eGFR For African Americans 41 (> 60); eGFR For Non-African Americans 34 (> 60)
[2016-12-08 07:15] LABS: Digoxin < 0.3 ng/mL (0.8-2.0)
[2016-12-08] MEDS ORDERED: Aminoglycoside Consult 1 EACH MC ONE (07:30)
[2016-12-08] MEDS ORDERED: Cefepime HCl 1,000 MG in D5% in Water (Mini-Bag+) 100 ML IVPB SCH (08:00)
[2016-12-08] MEDS ORDERED: Aspirin 81 MG TAB.CHEW GTUBE SCH (09:00)
[2016-12-08] MEDS: Dexmedetomidine HCl 400 MCG/100 ML MLS IVC SCH (09:36)
[2016-12-08] MEDS: MethylPREDNISolone 40 MG/ML VIAL IVP SCH ×4 (09:36→23:50)
[2016-12-08] MEDS: Cefepime HCl 1,000 MG in D5% in Water (Mini-Bag+) 100 ML IVPB SCH ×2 (09:37→21:50)
[2016-12-08] MEDS: Azithromycin 500 MG in D5% in Water 250 ML IVPB SCH (09:37)
[2016-12-08] MEDS: Chlorhexidine Rinse 15 ML MOUTHWASH MM SCH ×2 (09:38→20:29)
[2016-12-08] MEDS: Lacri-Lube 3.5 GM TUBE BOTH EYES SCH ×5 (09:38→23:48)
[2016-12-08] MEDS: Docusate Oral Soln 100 MG/10 ML UDC GTUBE SCH ×2 (09:38→20:37)
[2016-12-08] MEDS ORDERED: *HR* Etomidate 20 MG/10 ML AMPUL IVP ONE (10:07)
[2016-12-08] MEDS ORDERED: *HR* Rocuronium Bromide 50 MG/5 ML VIAL IVC ONE (10:07)
[2016-12-08] MEDS ORDERED: Heparin 25,000 UNIT/500 ML D5W 25,000 UNIT/500 ML MLS IVC SCH (10:45)
[2016-12-08] MEDS ORDERED: *HR* Dextrose 50 % in Water (Syg) 50 ML SYRINGE IVP PRN (10:57)
[2016-12-08] MEDS ORDERED: D5% in Water 1,000 ML IVC PRN (10:57)
[2016-12-08] MEDS ORDERED: Dextrose Gel 15 GM PO PRN ×2 (10:57)
[2016-12-08] MEDS: Budesonide/Formoterol 80/4.5 MDI IH SCH ×2 (11:05→22:02)
[2016-12-08] MEDS: Ipratropium/Albuterol Neb 3 ML IH SCH ×3 (11:05→22:02)
[2016-12-08 12:13] LABS: INR 1.2; Prothrombin Time 13.5 Seconds (9.4-12.1)
[2016-12-08 12:40] LABS: Activated Partial Thrombo Time 27.9 Seconds (26.0-36.0)
[2016-12-08] MEDS: Insulin LISPRO 300 UNITS/3 ML VIAL SQ SCH ×3 (12:44→23:49)
[2016-12-08] MEDS: Furosemide 40 MG/4 ML VIAL IVP SCH (15:00)
[2016-12-08] MEDS ORDERED: *HR* Heparin 5,000 UNIT/ML VIAL IVP PRN ×2 (17:17)
[2016-12-09] MEDS: Lacri-Lube 3.5 GM TUBE BOTH EYES SCH ×2 (03:53→07:26)
[2016-12-09] MEDS: FentaNYL (PF) 1,000 MCG in 0.9 % Sodium Chloride 80 ML IVC SCH (03:53)
[2016-12-09] MEDS: Ipratropium/Albuterol Neb 3 ML IH SCH ×5 (03:58→22:36)
[2016-12-09 04:02] LABS: Basophils % 0.3 %; Hematocrit 34.1 % (35.3-44.9); Hemoglobin 10.1 g/dL (11.5-15.4); Immature Granulocytes % 0.3 % (0-4); Lymphocytes # 0.6 K/mcL (0.6-4.6); Lymphocytes % 9.4 %; Mean Corpuscular HGB Conc 29.6 g/dL (31.6-35.5); Mean Corpuscular Hemoglobin 29.1 pg (28.0-33.3); Mean Corpuscular Volume 98.3 fL (83.0-100.0); Mean Platelet Volume 11.9 fL (9.4-12.4); Monocytes # 0.1 K/mcL (0.0-1.3); Monocytes % 1.7 %; Neutrophils # 5.3 K/mcL (1.6-8.9); Platelet Count 192 K/mcL (140-400); Red Blood Count 3.47 M/mcL (3.82-4.97); Red Cell Distribution Width 14.5 % (11.5-14.5); Segmented Neutrophils % 88.3 %
[2016-12-09 04:14] LABS: Calcium 9.6 mg/dL (8.6-10.8); Potassium 4.8 mEq/L (3.5-4.5)
[2016-12-09 04:34] LABS: Activated Partial Thrombo Time 188.7 Seconds (26.0-36.0); Heparin anti-factor XA UFH 1.78 IU/mL (0.30-0.70)
[2016-12-09] MEDS: Azithromycin 500 MG in D5% in Water 250 ML IVPB SCH (05:00)
[2016-12-09] MEDS: MethylPREDNISolone 40 MG/ML VIAL IVP SCH (05:00)
[2016-12-09] MEDS: Dexmedetomidine HCl 400 MCG/100 ML MLS IVC SCH (05:09)
[2016-12-09] MEDS: Insulin LISPRO 300 UNITS/3 ML VIAL SQ SCH (05:09)
[2016-12-09] MEDS ORDERED: Famotidine 20 MG/2 ML VIAL IVP SCH (06:00)
[2016-12-09] MEDS ORDERED: *HR* Enoxaparin 60 MG/0.6 ML SYRINGE SQ SCH (06:00)
[2016-12-09] MEDS ORDERED: Vancomycin 1,000 MG in D5% in Water 250 ML IVPB SCH ×2 (06:00)
[2016-12-09] MEDS ORDERED: Acetaminophen 325 MG TABLET PO PRN (06:22)
[2016-12-09] MEDS ORDERED: Ondansetron 4 MG/2 ML VIAL IVP PRN ×2 (06:22→09:17)
[2016-12-09] MEDS ORDERED: *HR* HYDROmorphone (PF) 1 MG/ML SYRINGE IVP PRN ×2 (06:22→09:17)
--- NOTE | 2016-12-09 06:32 | Pulmonology Progress Note ---
Date of Encounter: 12/09/16 Time of Encounter: 06:32 Assessment and Plan (1) Acute on chronic respiratory failure with hypoxemia Current Visit: Yes Status: Acute Management was reviewed during multidisciplinary critical care rounds. Neuropsych: Awake and alert no evidence of delirium continue to monitor Avoid [employer] depressant medications as able congregational of sleep-wake cycle avoid sensory deprivation Pulm: Acute on chronic hypoxic hypercarbic respiratory failure which is likely secondary to cardiogenic pulmonary edema and mild COPD exacerbation requiring mechanical ventilation now liberated from the ventilator doing well she can use with BiPAP as needed especially at night although currently no acute indication for this. Continue bronchodilators continue diuresis switch formulation of steroids to oral prednisone to complete 5 day course patient is formally tobacco free and I congratulated her on this. Cards: History of heart failure with reduced ejection fraction presented with cardiogenic pulmonary edema and decompensated heart failure that is improving. She has NSTEMI with minor troponin elevation which is likely secondary to demand ischemia do not feel that this is acute coronary syndrome. Restart home BB dose today FEN-GI: Advanced diet as tolerated Renal: Mild kidney injury howerver she continues to have excellent urine output continue diuresis monitor electrolytes daily ID: There was concern initially for possibility of community-acquired pneumonia I think this is less likely and we will de-escalate antimicrobials in 24 hours if cultures remain negative Heme/Onc: Long-term anticoagulation for atrial fibrillation she is receiving heparin for this can likely be switched back to her home dose of Apixaban Endo: Glucose Monitored Integ/MSK: Skin Care per routine ICU Nursing Protocol to prevent ulcers. Lines: All lines examined without evidence of infection including: Dispo: [facility]. Report called to admitting/excepting hospitalist CODE: I have consulted palliative care medicine to discuss goals of care per last visit she is DNA are with intubation patient is unclear of this as is the family Dr John who had a formal conversation with her at last visit is on service at this time and has graciously agreed to see the patient (2) Heart failure, systolic, with acute decompensation Current Visit: Yes Status: Acute (3) Sepsis, unspecified organism Current Visit: Yes Status: Acute Qualifiers: Sepsis type: sepsis due to unspecified organism Qualified Code(s): A41.9 - Sepsis, unspecified organism (4) custodial current use of anticoagulant Current Visit: Yes Status: Acute (5) Goals of care, counseling/discussion Current Visit: Yes Status: Acute (6) Atrial fibrillation Current Visit: Yes Status: Acute Qualifiers: Atrial fibrillation type: unspecified Qualified Code(s): I48.91 - Unspecified atrial fibrillation (7) Pneumonia Current Visit: Yes Status: Acute Qualifiers: Pneumonia type: due to unspecified organism Laterality: unspecified laterality Lung location: unspecified part of lung Qualified Code(s): J18.9 - Pneumonia, unspecified organism (8) Elevated troponin Current Visit: Yes Status: Acute Subjective Principal diagnosis: Acute respiratory failure Interval history: Has done very well almost 24 hours was successfully liberated from the ventilator yesterday now is on minimal supplemental oxygen support via nasal cannula tolerating well sitting up in bed talking no distress. Objective PUL Vital signs: Last Vital Signs Temp 99.6 F 12/08/16 23:27 Pulse 115 12/09/16 05:53 Resp 24 12/09/16 05:53 BP 109/59 12/09/16 05:53 Pulse Ox 97 12/09/16 05:53 General appearance: no acute distress Eyes: nonicteric ENT: oropharynx moist Auscultation: bilateral: diminished breath sounds, wheezes, rales Cardiovascular: irregular rhythm Gastrointestinal: normoactive bowel sounds, soft, non-tender Extremities: edema Results - Laboratory Findings CBC and BMP: 12/09/16 03:54 12/09/16 03:54 ABG ABG pH 7.34 pH Units (7.32-7.45) 12/08/16 06:20 ABG pCO2 51 mmHg (35-45) H 12/08/16 06:20 ABG pO2 488 mmHg (85-104) H 12/08/16 06:20 ABG O2 Saturation 100 % (95-98) H 12/08/16 06:20 PT/INR, D-dimer PT 13.5 Seconds (9.4-12.1) H 12/08/16 11:46 Abnormal lab findings: Abnormal lab results RBC 3.47 M/mcL (3.82-4.97) L 12/09/16 03:54 Hgb 10.1 g/dL (11.5-15.4) L D 12/09/16 03:54 Hct 34.1 % (35.3-44.9) L 12/09/16 03:54 MCHC 29.6 g/dL (31.6-35.5) L 12/09/16 03:54 Hypochromasia Present (Not Present) A 12/08/16 02:45 PT 13.5 Seconds (9.4-12.1) H 12/08/16 11:46 APTT 188.7 Seconds (26.0-36.0) H* D 12/09/16 03:54 Heparin Anti-Xa, Unfract 1.78 IU/mL (0.30-0.70) H* 12/09/16 03:54 ABG pCO2 51 mmHg (35-45) H 12/08/16 06:20 ABG pO2 488 mmHg (85-104) H 12/08/16 06:20 ABG HCO3 27.5 mEQ/L (21-27) H 12/08/16 06:20 ABG Total CO2 29.1 mEq/L (20-26) H 12/08/16 06:20 ABG O2 Saturation 100 % (95-98) H 12/08/16 06:20 Potassium 4.8 mEq/L (3.5-4.5) H 12/09/16 03:54 Creatinine 1.59 mg/dL (0.57-1.11) H 12/09/16 03:54 Est GFR ( Amer) 38 (> 60) L 12/09/16 03:54 Est GFR (Non-Af Amer) 31 (> 60) L 12/09/16 03:54 Glucose 144 mg/dL (70-99) H 12/09/16 03:54 POC Glucose 124 (58-89) H 12/09/16 05:08 Troponin I 0.09 ng/mL (0-0.03) H* 12/08/16 09:41 B-Natriuretic Peptide 686 pg/mL (0-100) H 12/08/16 02:45 Albumin 3.1 g/dL (3.5-5.0) L 12/08/16 02:45 Globulin 3.7 g/dL (2.4-3.5) H 12/08/16 02:45 Albumin/Globulin Ratio 0.8 (1.1-2.2) L 12/08/16 02:45 Lipase 121 Units/L (8-78) H 12/08/16 02:45 Urine Clarity Cloudy (Clear) A 12/08/16 02:45 Urine Protein 100 mg/dL (Neg-Trace) H 12/08/16 02:45 Urine Blood Small (Negative) H 12/08/16 02:45 Ur Leukocyte Esterase Moderate (Negative) H 12/08/16 02:45 Urine Microscopic WBC 30-50 per hpf (0-3) H 12/08/16 02:45 Ur Squamous Epith Cells Many per lpf (None-Few) H 12/08/16 02:45 Digoxin < 0.3 ng/mL (0.8-2.0) L 12/08/16 02:45 - Clinical Findings Intake & Output: Intake & Output 12/08/16 12/08/16 12/09/16 15:59 23:59 07:59 Intake Total 399 / 399 210 / 210 342 / 342 Output Total 550 / 550 1400 / 1400 150 / 150 Balance -151 / -151 -1190 / -1190 192 / 192 Weight 61.8 kg 59.6 kg - VTE Reasons for not Prescribing Prophylaxis: Not indicated-Anticoagulated or INR therapeutic Documentation of Mechanical Device: Intermittent pneumatic compression device Consult Discharge Plan - Plan Referrals: Meenu Rascon, RESORT MANAGER [Primary Care Provider] -
[2016-12-09] MEDS ORDERED: APIXABAN 5 MG TABLET PO SCH (09:00)
[2016-12-09] MEDS ORDERED: predniSONE 20 MG TABLET PO SCH (09:00)
[2016-12-09] MEDS: Furosemide 40 MG/4 ML VIAL IVP SCH (09:02)
[2016-12-09] MEDS: Cefepime HCl 1,000 MG in D5% in Water (Mini-Bag+) 100 ML IVPB SCH ×3 (09:04→21:43)
[2016-12-09] MEDS ORDERED: Aspirin 81 MG TAB.CHEW PO SCH (09:05)
[2016-12-09] MEDS: Budesonide/Formoterol 80/4.5 MDI IH SCH ×3 (09:16→22:36)
[2016-12-09] MEDS ORDERED: D5% in Water 1,000 ML IVC PRN (09:17)
[2016-12-09] MEDS ORDERED: Naloxone 0.4 MG/ML INJ IVP PRN (09:17)
[2016-12-09] MEDS ORDERED: Ipratropium/Albuterol Neb 3 ML IH PRN (09:17)
[2016-12-09] MEDS ORDERED: Dextrose Gel 15 GM PO PRN ×2 (09:17)
[2016-12-09] MEDS ORDERED: *HR* Dextrose 50 % in Water (Syg) 50 ML SYRINGE IVP PRN (09:17)
--- NOTE | 2016-12-09 09:25 | Palliative - Consult Note ---
Date of Encounter: 12/09/16 Time of Encounter: 07:20 - Assessment and Plan (1) Advanced COPD Current Visit: Yes Status: Chronic Assessment and plan: Now extubated, on oxygen doing nebs and antibiotics for possible pneumonia. We will de-escalate antibiotics as is appropriate by culture. Plan per pulmonary and hospitalist team. (2) Constipation by delayed colonic transit Current Visit: Yes Status: Acute Assessment and plan: She relates constipation. We will make sure that she is on a bowel regimen. Continue to watch. (3) CHF (congestive heart failure) Current Visit: Yes Status: Acute Assessment and plan: ENP was elevated at 686 interstitial edema was noted on the chest x-ray per the history of present illness. Is being treated for this. Plan per pulmonary and hospitalist team. Qualifiers: Congestive heart failure type: systolic Congestive heart failure chronicity : acute on chronic Qualified Code(s): I50.23 - Acute on chronic systolic ( congestive) heart failure (4) Goals of care, counseling/discussion Current Visit: Yes Status: Acute Assessment and plan: Patient had prior discussion with me about CODE STATUS. She wishes to be DO NOT RESUSCITATE comfort care arrest. She is okay with short-term intubation and she will discuss this further with her family. She will require advanced directives be done as these were not accomplished during last hospitalization. She is hoping to go home very soon. Her goal is to return back to her [facility] finish out her rehabilitation and then potentially return home. Palliative-CN HPI - Data of Consult Patient: known to practice within the last 3 years Requesting Physician: Georgiana Croft MD Primary Care Provider: Meenu Rascon CNP - Consult Narrative Palliative Care/Comfort Measures: Palliative care History of present illness: Ms. Hardy is a 81 year old female The patient was at her [facility] for rehabilitation from a episode of COPD only a month ago. When I first saw her. She developed respiratory distress was brought in the emergency department and intubated. She was initially hypotensive but responded well to IV fluid she was also in A. fib with rapid ventricular response. Has responded well to the fluid. Asked x-ray showed interstitial and patchy opacities of the right lung. His had multiple hospitalizations for COPD exacerbations and pneumonia. He is currently being treated for pneumonia. She has since been extubated and is feeling much better now. Having no trouble breathing at this point in time has no pain. She did feel a bit nauseated earlier today but no vomiting. She has been constipated. He denies any fever, she does have a cough but does not recall if it has been particularly productive. During previous auscultation patient had desired to be DNR CCA, short-term intubation was okay she came in as a full code there was no paperwork with her. Palliative care was consult regarding his of care. Please see the assessment and plan. CC: Georgiana Croft MD Shortness of breath Past Med Surg Social Fam HX - Past Medical History Medical history: aortic aneurysm, atrial fibrillation, COPD, GERD, hyperlipidemia, hypertension, thyroid disease, other Psychiatric history: no psych history - Past Surgical History Surgical History: no surgical history, vascular surgery - Social History Smoking Status: Current every day smoker Packs per day: 1/ Smokeless Tobacco Status: No Alcohol use: none Drug use: none Medications and Allergies Apixaban [Eliquis] 2.5 mg PO BID 10/10/16 [History] Omeprazole 20 mg PO DAILY 10/10/16 [History] Simvastatin [Zocor] 40 mg PO HS 10/10/16 [History] Albuterol Sulfate [Ventolin Hfa] 2 puff IH Q4H PRN 10/19/16 [History] Aspirin 81 mg PO DAILY 10/19/16 [History] Docusate [Colace] 100 mg PO BID 10/19/16 [History] Fluticasone/Salmeterol [Advair 250-50 Diskus] 1 each IH Q12H 10/19/16 [History] Levothyroxine [Levothyroxine Sodium] 137 mcg PO DAILY@0630 10/19/16 [History] Polyethylene Glycol 3350 [MiraLAX Powder Bulk 17.9 Oz] 1 scoop PO DAILY PRN 08/31 [History] Ranitidine HCl [Acid Tax Director] 150 mg PO DAILY PRN 10/19/16 [History] Sennosides [Senokot] 8.6 mg PO DAILY 10/19/16 [History] Lisinopril 2.5 mg PO DAILY #30 tablet 10/23/16 [Rx] Metoprolol [Lopressor] 25 mg PO BID tablet 10/23/16 [Rx] Digoxin [Lanoxin] 0.125 mg PO Q48H #15 tablet 10/26/16 [Rx] Bumetanide 0.5 mg PO BID 12/08/16 [History] Clopidogrel [Plavix] 75 mg PO DAILY 12/08/16 [History] Furosemide [Lasix] 20 mg PO DAILY 12/08/16 [History] Verapamil HCl [Verapamil ER] 180 mg PO DAILY 12/08/16 [History] 3 Allergy/AdvReac Type Severity Reaction Status Date / Time diphenhydramine Allergy Difficulty Verified 10/10/16 18:03 [From Benadryl] Breathing ivp dye Allergy See Uncoded 10/10/16 15:35 Comments - Constitutional Constitutional ROS PAL: no decreased appetite, no anorexia, no chills, no fever( s) - EENT Eyes: no discharge, no pain Ears: no ear discharge, no ear pain Ears, nose, mouth, throat: no facial pain, no hoarseness, no lip swelling, no mouth pain - Cardiovascular Cardiovascular ROS: dyspnea on exertion, irregular heart rhythm - Respiratory Respiratory: cough, dyspnea, dyspnea on exertion - Gastrointestinal Gastrointestinal: constipation, nausea, no diarrhea, no vomiting - Genitourinary Palliative ROS female: no urinary frequency, no urinary hesitancy, no urinary incontinence - Musculoskeletal Musculoskeletal ROS IM: no arthralgias, no back pain - Integumentary ROS Integumentary: no skin ulcer, no sores - Neurological Neurological ROS: no confusion, no convulsions, no headache(s), no lack of coordination - Psychiatric Psychiatric general PM: no depression, no difficulty concentrating, no homicidal ideation, no suicidal ideation - Endocrine Additional comments: Positive for thyroid disease Palliative Care-Exam - Constitutional Vitals: Temp Pulse Resp BP Pulse Ox 98.3 F 93 20 112/53 98 12/09/16 07:43 12/09/16 08:00 12/09/16 08:00 12/09/16 08:00 12/09/16 08:00 General appearance: Present: no acute distress - Head Head Exam: Present: atraumatic, normal inspection - Eye Eye exam: Present: normal appearance - Respiratory Respiratory exam: Present: decreased breath sounds - Cardiovascular Cardiovascular exam: Present: irregular rhythm (Slightly irregular) - GI/Abdominal Exam GI/Abdominal exam: Present: normal bowel sounds, soft. Absent: tenderness - Catheter Type: Urethral (Gómez) - Extremities Exam Extremities exam: Present: pedal edema. Absent: normal inspection, tenderness - Neurological Exam Neurological exam: Present: alert, oriented X3. Absent: altered - Psychiatric Psychiatric exam: Present: normal affect, normal mood. Absent: agitated, anxious - Skin Skin exam: Present: dry, warm Internal Medicine - CN: Reslt - Labs CBC & Chem 7: 12/09/16 03:54 12/09/16 03:54 Labs: Short CBC 12/09/16 Range/Units 03:54 WBC 6.0 (4.3-11.1) K/mcL Hgb 10.1 L D (11.5-15.4) g/dL Hct 34.1 L (35.3-44.9) % Plt Count 192 (140-400) K/mcL Neutrophils # 5.3 (1.6-8.9) K/mcL BMP 12/09/16 03:54 Sodium 139 Potassium 4.8 H Chloride 102 Carbon Dioxide 28 BUN 19 Creatinine 1.59 H Glucose 144 H Calcium 9.6 Cardiac Enzymes 12/08/16 12/09/16 Range/Units 09:41 07:03 Troponin I 0.09 H* 0.10 H* (0-0.03) ng/mL - ABG Interpretation ABG results: ABG ABG pH 7.34 pH Units (7.32-7.45) 12/08/16 06:20 ABG pCO2 51 mmHg (35-45) H 12/08/16 06:20 ABG pO2 488 mmHg (85-104) H 12/08/16 06:20 ABG O2 Saturation 100 % (95-98) H 12/08/16 06:20 PT/INR, D-dimer PT 13.5 Seconds (9.4-12.1) H 12/08/16 11:46 Consult Discharge Plan - Plan Referrals: Meenu Rascon MANAGER TRAINING [Primary Care Provider] - Palliative Quality Palliative Quality: Screen for Code Status: Yes, Screen for Goals of Care: Yes, Screen for Pain: Yes, If Pain Regimen Started, Initiate Bowel Regimen: Yes, Screen for Nausea/Vomitting: Yes Code Status: 12/08/16 05:31 Resuscitation Status: Active [RES] Routine Comment: Resuscitation Status: Full Code
[2016-12-09] MEDS ORDERED: Insulin LISPRO 300 UNITS/3 ML VIAL SQ SCH (12:00)
[2016-12-09] MEDS: APIXABAN 5 MG TABLET PO SCH (21:42)
[2016-12-09] MEDS: Sennosides/Docusate Sodium TABLET PO SCH (21:43)
[2016-12-10] MEDS: Acetaminophen 325 MG TABLET PO PRN (03:09)
[2016-12-10] MEDS: Ipratropium/Albuterol Neb 3 ML IH SCH ×4 (03:48→22:27)
[2016-12-10] MEDS: Azithromycin 500 MG in D5% in Water 250 ML IVPB SCH (06:01)
--- NOTE | 2016-12-10 07:00 | Event Note ---
Date of Encounter: 12/10/16 Time of Encounter: 06:59 Allergies of care was consulted regarding CODE STATUS and goals of care. Status has been readdressed, patient continues to confirm she wishes to be DNR comfort care arrest. He is okay with short-term intubation. She is to talk to her family about what short-term intubation actually is. Her goal is to return in [facility] pulmonary rehabilitation. DNR forms have been related in signed by both myself and the patient. Palliative care we will therefore sign off please feel free to reconsult if we can help in any way.
--- NOTE | 2016-12-10 08:26 | Internal Med Progress Note ---
Date of Encounter: 12/10/16 Time of Encounter: 08:23 - Assessment and plan (1) Sepsis, unspecified organism Current Visit: Yes Status: Acute Assessment and plan: Improving Due to Pneumonia So far blood cx - no growth Cont broad sepc abx Cefepime.. Azithromycin # 3/3 Qualifiers: Sepsis type: sepsis due to unspecified organism Qualified Code(s): A41.9 - Sepsis, unspecified organism (2) Acute and chronic respiratory failure with hypoxia Current Visit: Yes Status: Acute Assessment and plan: s/p VDRF doing well now cont Duoneb and O2 Cont systemic steroids encourage frequent IS (3) Heart failure, systolic, with acute decompensation Current Visit: Yes Status: Acute Assessment and plan: Reviewed 2 D Echo from 10/20/2016 - showed LVEF 40% Atypical septal motion consistent with bundle branch block also had diastolic dysfunction Improving cont gentle diuresis due to BP issues changed to PO Lasix Cont Metoprolol, ASA and statin (4) HCAP (healthcare-associated pneumonia) Current Visit: No Status: Acute Assessment and plan: LLL PNA cont broad spec abx sputum cx - P (5) Atrial fibrillation Current Visit: Yes Status: Chronic Assessment and plan: Rate controlled with Metoprolol on Eliquis for anticoag Qualifiers: Atrial fibrillation type: chronic Qualified Code(s): I48.2 - Chronic atrial fibrillation (6) Advanced COPD Current Visit: Yes Status: Chronic Assessment and plan: Cont surrent symptomatic and supportive care pt's daughter and POA requested for DNR-CCA Except short term intubation if needed cont close monitoring (7) CKD (chronic kidney disease) Current Visit: No Status: Acute Assessment and plan: stable Cr..at baseline Qualifiers: Chronic kidney disease stage: stage 3 (moderate) Qualified Code(s): N18.3 - Chronic kidney disease, stage 3 (moderate) (8) Elevated troponin Current Visit: Yes Status: Acute Assessment and plan: due to demand ischemia no further work up needed (9) Hypertension Current Visit: No Status: Chronic Assessment and plan: stable.. cont Metoprolol Qualifiers: Hypertension type: essential hypertension Qualified Code(s): I10 - Essential (primary) hypertension - Subjective Interval history: This is a 81-year-old woman with past medical history of chronic respiratory failure COPD heart failure with reduced ejection fraction atrial fibrillation on long-term anticoagulation who presented to the ED and respiratory failure requiring intubation. On presentation to the ED blood pressure is 133/79 with heart rate 158 and apparently the rhythm at that time was atrial fibrillation with rapid ventricular response she was on 15 L nonrebreather and was intubated subsequently. Post intubation blood pressure was noted to drop to 61/31 possibly related to sedation for the intubation itself. She received 2 L bolus of normal saline with improvement in blood pressure. She was started on broad- spectrum anti microbial were both healthcare associated pneumonia and atypical pneumonia and steroids along with bronchodilators. At baseline she is anti coagulated with a NOAC and per family she has been diligent about taking this. She got extubated on 12/08/16, since then she has been doing well. Currently she is breathing comfortably on 2 LIt NC O2. Denied any CP . However does c/o mild SOB / HANNA and Weakness - Constitutional Vitals: Temp Pulse Resp BP Pulse Ox 97.5 F L 98 15 111/75 98 12/10/16 06:38 12/10/16 06:38 12/10/16 06:38 12/10/16 06:38 12/10/16 06:38 General appearance: Present: A&O X 2, no acute distress - Head Head exam: Present: atraumatic, normal inspection - Respiratory Respiratory exam: Present: decreased breath sounds, rales (few), wheezes. Absent: respiratory distress, rhonchi - Cardiovascular Cardiovascular exam: Present: irregular rhythm, +S1, +S2. Absent: systolic murmur - GI/Abdominal GI/Abdominal exam: Present: normal bowel sounds, soft. Absent: rebound, rigid, tenderness - Extremities Exam Extremities exam: Present: pedal edema (2+). Absent: calf tenderness, tenderness - Neurological Exam Neurological exam: Present: alert Internal Medicine: Result - Labs CBC & Chem 7: 12/09/16 03:54 12/09/16 03:54 - ABG Interpretation ABG results: ABG ABG pH 7.34 pH Units (7.32-7.45) 12/08/16 06:20 ABG pCO2 51 mmHg (35-45) H 12/08/16 06:20 ABG pO2 488 mmHg (85-104) H 12/08/16 06:20 ABG O2 Saturation 100 % (95-98) H 12/08/16 06:20 PT/INR, D-dimer PT 13.5 Seconds (9.4-12.1) H 12/08/16 11:46 - VTE Reasons for not Prescribing Prophylaxis: Not indicated-Anticoagulated or INR therapeutic Documentation of Mechanical Device: Intermittent pneumatic compression device Consult Discharge Plan - Plan Referrals: Meenu Rascon, CURING OVEN ATTENDANT [Primary Care Provider] -
[2016-12-10] MEDS ORDERED: Furosemide 40 MG/4 ML VIAL IVP SCH (09:00)
[2016-12-10] MEDS: Sennosides/Docusate Sodium TABLET PO SCH ×2 (09:01→20:47)
[2016-12-10] MEDS: predniSONE 20 MG TABLET PO SCH (09:02)
[2016-12-10] MEDS: Aspirin 81 MG TAB.CHEW PO SCH (09:02)
[2016-12-10] MEDS: APIXABAN 5 MG TABLET PO SCH ×2 (09:02→20:47)
[2016-12-10] MEDS: Cefepime HCl 1,000 MG in D5% in Water (Mini-Bag+) 100 ML IVPB SCH ×2 (09:02→16:08)
[2016-12-10] MEDS: Furosemide 40 MG TABLET PO SCH ×2 (09:05→16:11)
[2016-12-10] MEDS: Budesonide/Formoterol 80/4.5 MDI IH SCH ×2 (09:12→22:27)
[2016-12-10 09:18] LABS: Basophils % 0.1 %; Hematocrit 33.5 % (35.3-44.9); Hemoglobin 10.4 g/dL (11.5-15.4); Immature Granulocytes % 0.3 % (0-4); Immature Platelets 11.6 % (1.1-6.1); Lymphocytes # 1.3 K/mcL (0.6-4.6); Lymphocytes % 13.1 %; Mean Corpuscular Volume 96.5 fL (83.0-100.0); Mean Platelet Volume 12.5 fL (9.4-12.4); Monocytes # 1.1 K/mcL (0.0-1.3); Monocytes % 10.6 %; Neutrophils # 7.5 K/mcL (1.6-8.9); Platelet Count 206 K/mcL (140-400); Red Blood Count 3.47 M/mcL (3.82-4.97); Red Cell Distribution Width 14.9 % (11.5-14.5); Segmented Neutrophils % 75.9 %
[2016-12-10 09:31] LABS: Calcium 9.4 mg/dL (8.6-10.8); Magnesium 1.4 mg/dL (1.6-2.6); Potassium 3.9 mEq/L (3.5-4.5)
[2016-12-11] MEDS: Ipratropium/Albuterol Neb 3 ML IH SCH ×4 (03:38→22:14)
[2016-12-11 04:42] LABS: Basophils % 0.2 %; Eosinophils % 0.1 %; Hematocrit 34.9 % (35.3-44.9); Hemoglobin 10.9 g/dL (11.5-15.4); Immature Granulocytes % 0.2 % (0-4); Lymphocytes % 18.8 %; Mean Corpuscular HGB Conc 31.2 g/dL (31.6-35.5); Mean Corpuscular Volume 96.1 fL (83.0-100.0); Mean Platelet Volume 12.2 fL (9.4-12.4); Monocytes # 1.2 K/mcL (0.0-1.3); Monocytes % 11.4 %; Neutrophils # 7.2 K/mcL (1.6-8.9); Platelet Count 212 K/mcL (140-400); Red Blood Count 3.63 M/mcL (3.82-4.97); Red Cell Distribution Width 14.8 % (11.5-14.5); Segmented Neutrophils % 69.3 %
[2016-12-11 04:57] LABS: Calcium 9.6 mg/dL (8.6-10.8); Magnesium 1.6 mg/dL (1.6-2.6); Potassium 3.6 mEq/L (3.5-4.5)
[2016-12-11] MEDS: Azithromycin 500 MG in D5% in Water 250 ML IVPB SCH (05:53)
--- NOTE | 2016-12-11 07:53 | Internal Med Progress Note ---
Date of Encounter: 12/11/16 Time of Encounter: 07:30 - Assessment and plan (1) Sepsis, unspecified organism Current Visit: Yes Status: Acute Assessment and plan: Improving Due to Pneumonia So far blood cx - no growth Cont broad sepc abx Cefepime. Finished Azithromycin # 3/3 Qualifiers: Sepsis type: sepsis due to unspecified organism Qualified Code(s): A41.9 - Sepsis, unspecified organism (2) Acute and chronic respiratory failure with hypoxia Current Visit: Yes Status: Acute Assessment and plan: s/p VDRF doing well now cont Duoneb and O2 Cont systemic steroids encourage frequent IS (3) Heart failure, systolic, with acute decompensation Current Visit: Yes Status: Acute Assessment and plan: Reviewed 2 D Echo from 10/20/2016 - showed LVEF 40% Atypical septal motion consistent with bundle branch block also had diastolic dysfunction Improving cont gentle diuresis due to BP issues changed to PO Lasix daily now Cont Metoprolol, ASA and statin (4) HCAP (healthcare-associated pneumonia) Current Visit: No Status: Acute Assessment and plan: LLL PNA cont broad spec abx sputum cx - P (5) Atrial fibrillation Current Visit: Yes Status: Chronic Assessment and plan: Rate controlled with Metoprolol on Eliquis for anticoag Qualifiers: Atrial fibrillation type: chronic Qualified Code(s): I48.2 - Chronic atrial fibrillation (6) Advanced COPD Current Visit: Yes Status: Chronic Assessment and plan: Cont surrent symptomatic and supportive care pt's daughter and POA requested for DNR-CCA Except short term intubation if needed cont close monitoring (7) CKD (chronic kidney disease) Current Visit: No Status: Acute Assessment and plan: stable Cr..at baseline Qualifiers: Chronic kidney disease stage: stage 3 (moderate) Qualified Code(s): N18.3 - Chronic kidney disease, stage 3 (moderate) (8) Elevated troponin Current Visit: Yes Status: Acute Assessment and plan: due to demand ischemia no further work up needed (9) Hypertension Current Visit: No Status: Chronic Assessment and plan: stable.. cont Metoprolol Qualifiers: Hypertension type: essential hypertension Qualified Code(s): I10 - Essential (primary) hypertension (10) Physical deconditioning Current Visit: Yes Status: Acute Assessment and plan: PT / OT eval ordered Wondering pt may get benefit with short term rehab - Subjective Interval history: This is a 81-year-old woman with past medical history of chronic respiratory failure COPD heart failure with reduced ejection fraction atrial fibrillation on long-term anticoagulation who presented to the ED and respiratory failure requiring intubation. On presentation to the ED blood pressure is 133/79 with heart rate 158 and apparently the rhythm at that time was atrial fibrillation with rapid ventricular response she was on 15 L nonrebreather and was intubated subsequently. Post intubation blood pressure was noted to drop to 61/31 possibly related to sedation for the intubation itself. She received 2 L bolus of normal saline with improvement in blood pressure. She was started on broad- spectrum anti microbial were both healthcare associated pneumonia and atypical pneumonia and steroids along with bronchodilators. At baseline she is anti coagulated with a NOAC and per family she has been diligent about taking this. She got extubated on 12/08/16, since then she has been doing well. Pt was seen and examined at bed side today. Currently she is breathing comfortably on 2 Lit NC O2. Denied any CP . Denied any SOB, does c/o mild HANNA and Weakness - Constitutional Vitals: Temp Pulse Resp BP Pulse Ox 97.9 F 92 13 119/66 97 12/11/16 03:32 12/11/16 03:32 12/11/16 03:41 12/11/16 03:32 12/11/16 03:41 General appearance: Present: A&O X 3, no acute distress - Head Head exam: Present: atraumatic, normal inspection - Respiratory Respiratory exam: Present: decreased breath sounds, rales (mild), wheezes. Absent: respiratory distress, rhonchi - Cardiovascular Cardiovascular exam: Present: RRR, +S1, +S2. Absent: systolic murmur - GI/Abdominal GI/Abdominal exam: Present: normal bowel sounds, soft. Absent: rebound, rigid, tenderness - Extremities Exam Extremities exam: Present: pedal edema (trace). Absent: calf tenderness, tenderness - Neurological Exam Neurological exam: Present: alert, oriented X3 - Psychiatric Psychiatric exam: Present: normal affect, normal mood Internal Medicine: Result - Labs CBC & Chem 7: 12/11/16 04:30 12/11/16 04:30 Labs: Short CBC 12/10/16 12/11/16 Range/Units 08:59 04:30 WBC 9.9 D 10.4 (4.3-11.1) K/mcL Hgb 10.4 L 10.9 L (11.5-15.4) g/dL Hct 33.5 L 34.9 L (35.3-44.9) % Plt Count 206 212 (140-400) K/mcL Neutrophils # 7.5 7.2 (1.6-8.9) K/mcL BMP 12/10/16 12/11/16 08:59 04:30 Sodium 140 142 Potassium 3.9 3.6 Chloride 100 96 L Carbon Dioxide 30 H 38 H BUN 34 H D 33 H Creatinine 2.08 H 1.94 H Glucose 147 H 101 H Calcium 9.4 9.6 - ABG Interpretation ABG results: ABG ABG pH 7.34 pH Units (7.32-7.45) 12/08/16 06:20 ABG pCO2 51 mmHg (35-45) H 12/08/16 06:20 ABG pO2 488 mmHg (85-104) H 12/08/16 06:20 ABG O2 Saturation 100 % (95-98) H 12/08/16 06:20 PT/INR, D-dimer PT 13.5 Seconds (9.4-12.1) H 12/08/16 11:46 - VTE Reasons for not Prescribing Prophylaxis: Not indicated-Anticoagulated or INR therapeutic Documentation of Mechanical Device: Intermittent pneumatic compression device Consult Discharge Plan - Plan Referrals: Meenu Rascon, SYSTEMATIC THEOLOGY PROFESSOR [Primary Care Provider] - (web request sent on 12/10/16)
[2016-12-11] MEDS: Aspirin 81 MG TAB.CHEW PO SCH (08:59)
[2016-12-11] MEDS: APIXABAN 5 MG TABLET PO SCH ×2 (08:59→21:46)
[2016-12-11] MEDS: Furosemide 40 MG TABLET PO SCH (08:59)
[2016-12-11] MEDS: Sennosides/Docusate Sodium TABLET PO SCH ×2 (08:59→21:46)
[2016-12-11] MEDS: predniSONE 20 MG TABLET PO SCH (09:00)
[2016-12-11] MEDS: Budesonide/Formoterol 80/4.5 MDI IH SCH ×2 (09:56→22:14)
[2016-12-11] MEDS: Cefepime HCl 1,000 MG in D5% in Water (Mini-Bag+) 100 ML IVPB SCH (14:30)
[2016-12-12] MEDS: Ipratropium/Albuterol Neb 3 ML IH SCH ×4 (03:52→16:01)
[2016-12-12 04:57] LABS: Calcium 9.5 mg/dL (8.6-10.8); Magnesium 1.6 mg/dL (1.6-2.6); Potassium 3.6 mEq/L (3.5-4.5)
[2016-12-12] MEDS: predniSONE 20 MG TABLET PO SCH (08:48)
[2016-12-12] MEDS: Aspirin 81 MG TAB.CHEW PO SCH (08:49)
[2016-12-12] MEDS: APIXABAN 5 MG TABLET PO SCH (08:49)
[2016-12-12] MEDS: Sennosides/Docusate Sodium TABLET PO SCH (08:49)
[2016-12-12] MEDS: Furosemide 40 MG TABLET PO SCH (08:50)
--- NOTE | 2016-12-12 10:11 | Discharge Summary ---
Date of Encounter: 12/12/16 Time of Encounter: 10:08 - Discharge Diagnosis (1) Sepsis, unspecified organism Priority: Primary Status: Acute Qualifiers: Sepsis type: sepsis due to unspecified organism Qualified Code(s): A41.9 - Sepsis, unspecified organism (2) Acute and chronic respiratory failure with hypoxia Priority: Primary Status: Acute (3) Heart failure, systolic, with acute decompensation Priority: Primary Status: Acute (4) HCAP (healthcare-associated pneumonia) Priority: Primary Status: Acute (5) Atrial fibrillation Priority: Secondary Status: Chronic Qualifiers: Atrial fibrillation type: chronic Qualified Code(s): I48.2 - Chronic atrial fibrillation (6) Advanced COPD Priority: Secondary Status: Chronic (7) CKD (chronic kidney disease) Priority: Secondary Status: Acute Qualifiers: Chronic kidney disease stage: stage 3 (moderate) Qualified Code(s): N18.3 - Chronic kidney disease, stage 3 (moderate) (8) Elevated troponin Priority: Secondary Status: Acute (9) Hypertension Priority: Secondary Status: Chronic Qualifiers: Hypertension type: essential hypertension Qualified Code(s): I10 - Essential (primary) hypertension (10) Physical deconditioning Priority: Secondary Status: Acute - Discharge Medications Prescriptions: Cephalexin [Keflex] 500 mg PO BID #6 capsule Furosemide [Lasix] 40 mg PO DAILY 30 Days predniSONE [PredniSONE] 40 mg PO DAILY #10 tab Home Medications: Apixaban [Eliquis] 2.5 mg PO BID 10/10/16 [History] Simvastatin [Zocor] 40 mg PO HS 10/10/16 [History] Albuterol Sulfate [Ventolin Hfa] 2 puff IH Q4H PRN 10/19/16 [History] Aspirin 81 mg PO DAILY 10/19/16 [History] Docusate [Colace] 100 mg PO BID 10/19/16 [History] Fluticasone/Salmeterol [Advair 250-50 Diskus] 1 each IH Q12H 10/19/16 [History] Levothyroxine [Levothyroxine Sodium] 137 mcg PO DAILY@0630 10/19/16 [History] Polyethylene Glycol 3350 [MiraLAX Powder Bulk 17.9 Oz] 1 scoop PO DAILY PRN 08/31 [History] Ranitidine HCl [Acid Specialized Developer] 150 mg PO DAILY PRN 10/19/16 [History] Sennosides [Senokot] 8.6 mg PO DAILY 10/19/16 [History] Lisinopril 2.5 mg PO DAILY #30 tablet 10/23/16 [Rx] Metoprolol [Lopressor] 25 mg PO BID tablet 10/23/16 [Rx] Clopidogrel [Plavix] 75 mg PO DAILY 12/08/16 [History] Cephalexin [Keflex] 500 mg PO BID #6 capsule 12/12/16 [Rx] Furosemide [Lasix] 40 mg PO DAILY 30 Days 12/12/16 [Rx] predniSONE [PredniSONE] 40 mg PO DAILY #10 tab 12/12/16 [Rx] Allergies/Adverse Reactions: 3 Allergy/AdvReac Type Severity Reaction Status Date / Time diphenhydramine Allergy Difficulty Verified 10/10/16 18:03 [From Benadryl] Breathing ivp dye Allergy See Uncoded 10/10/16 15:35 Comments Date of admission: 12/08/16 05:27 Primary care physician: Meenu Rascon CNP Consults: 12/08/16 05:31 Consult to Pulmonology [CONS] Routine Consulting Provider: [facility] Reason for Consult: Acute respiratory failure. On ventilator. Call Completed: Yes 12/08/16 14:25 Consult to Sash Clamp Operator [CONS] Routine Reason for SW Consult: please assist with advanced directives 12/09/16 06:43 Consult to Palliative Care [CONS] Routine Comment: Consulting Provider: [facility] [place] Reason for Consult: goals of care Call Completed: Yes 12/11/16 07:39 Consult to Physical Therapy [CONS] Routine Comment: Evaluate, develop and implement POC Reason for Consult: Physicla deconditioning OT [Consult to Occupational Therapy] [CONS] Routine Comment: Evaluate, develop and implement POC Reason for Consult: Physical deconditioning - Patient Status Disposition: Transfer SNF Condition: Good Overall status at discharge: patient is back to baseline - Discharge Instructions Follow Up With: Meenu Rascon CNP [Primary Care Provider] - 12/16/16 11:00 am (web request sent on 12/10/16) - Diet and Activity Activity: increase activity as tolerated Diet: low salt diet Hospital course: This is a 81-year-old woman with past medical history of chronic respiratory failure COPD heart failure with reduced ejection fraction atrial fibrillation on long-term anticoagulation who presented to the ED and respiratory failure requiring intubation. On presentation to the ED blood pressure is 133/79 with heart rate 158 and apparently the rhythm at that time was atrial fibrillation with rapid ventricular response she was on 15 L nonrebreather and was intubated subsequently. Post intubation blood pressure was noted to drop to 61/31 possibly related to sedation for the intubation itself. She received 2 L bolus of normal saline with improvement in blood pressure. She was started on broad- spectrum anti microbial were both healthcare associated pneumonia and atypical pneumonia and steroids along with bronchodilators. At baseline she is anti coagulated with a NOAC and per family she has been diligent about taking this. She got extubated on 12/08/16, since then she has been doing well. P was continued on gentle diuresis with Lasix PO. Pt was also continued on empirical abx with Cefepime and Azzithromycin. Her SOB / HANNA are improved. Now she is breathing comfortably on 2 lit O2. Pt denied any CP. Her b/l LE swelling also improved. Pt ws seen by PT / OT, recommend short term PT / OT. So will discharge her today in stable condition to a swing bed facility for short term PT / OT. - Time Spent with Patient Total time spent providing and/or coordinating discharge services: Greater than 30 minutes (Spent 45 minutes on this patient's discharge summary due to complex medical problems and patient needed a lot of education regarding discharge instructions) - Constitutional Vitals: Temp Pulse Resp BP Pulse Ox 97.6 F 98 17 130/71 97 12/12/16 06:44 12/12/16 06:44 12/12/16 06:44 12/12/16 06:44 12/12/16 06:44 General appearance: Present: A&O X 3, no acute distress - Head Head exam: Present: atraumatic, normal inspection - Respiratory Respiratory exam: Present: decreased breath sounds, wheezes. Absent: rales, respiratory distress, rhonchi - Cardiovascular Cardiovascular exam: Present: irregular rhythm, +S1, +S2. Absent: systolic murmur - GI/Abdominal GI/Abdominal exam: Present: normal bowel sounds, soft. Absent: rebound, rigid, tenderness - Extremities Exam Extremities exam: Present: calf tenderness, pedal edema (1+..improving). Absent : tenderness - Back Exam Back exam: Absent: CVA tenderness (L), CVA tenderness (R) - Neurological Exam Neurological exam: Present: alert, oriented X3 - Psychiatric Psychiatric exam: Present: normal affect, normal mood - VTE Reasons for not Prescribing Prophylaxis: Not indicated-Anticoagulated or INR therapeutic Documentation of Mechanical Device: Intermittent pneumatic compression device
[2016-12-12] MEDS: Budesonide/Formoterol 80/4.5 MDI IH SCH (10:22)
[2016-12-12 10:54] VITALS: BP 112/69
[2016-12-12] MEDS: Cefepime HCl 1,000 MG in D5% in Water (Mini-Bag+) 100 ML IVPB SCH (13:31)
[2016-12-12] MEDS: Acetaminophen 325 MG TABLET PO PRN (13:32)
--- NOTE | 2016-12-12 15:06 | Physician Discharge Referral ---
ExtendedCare Referral Info Transfer To: ECF Provider in Charge after Transfer: PCP Institutional Level of Care: Skilled - Diagnosis (1) Sepsis, unspecified organism Status: Acute (2) Acute and chronic respiratory failure with hypoxia Status: Acute (3) Heart failure, systolic, with acute decompensation Status: Acute (4) HCAP (healthcare-associated pneumonia) Status: Acute (5) Atrial fibrillation Status: Chronic (6) Advanced COPD Status: Chronic (7) CKD (chronic kidney disease) Status: Acute (8) Elevated troponin Status: Acute (9) Hypertension Status: Chronic (10) Physical deconditioning Status: Acute - Transfer Medications Prescriptions: Cephalexin [Keflex] 500 mg PO BID #6 capsule Furosemide [Lasix] 40 mg PO DAILY 30 Days predniSONE [PredniSONE] 40 mg PO DAILY #10 tab Home Medications: Apixaban [Eliquis] 2.5 mg PO BID 10/10/16 [History] Simvastatin [Zocor] 40 mg PO HS 10/10/16 [History] Albuterol Sulfate [Ventolin Hfa] 2 puff IH Q4H PRN 10/19/16 [History] Aspirin 81 mg PO DAILY 10/19/16 [History] Docusate [Colace] 100 mg PO BID 10/19/16 [History] Fluticasone/Salmeterol [Advair 250-50 Diskus] 1 each IH Q12H 10/19/16 [History] Levothyroxine [Levothyroxine Sodium] 137 mcg PO DAILY@0630 10/19/16 [History] Polyethylene Glycol 3350 [MiraLAX Powder Bulk 17.9 Oz] 1 scoop PO DAILY PRN 08/31 [History] Ranitidine HCl [Acid Revolving Field Assembler] 150 mg PO DAILY PRN 10/19/16 [History] Sennosides [Senokot] 8.6 mg PO DAILY 10/19/16 [History] Lisinopril 2.5 mg PO DAILY #30 tablet 10/23/16 [Rx] Metoprolol [Lopressor] 25 mg PO BID tablet 10/23/16 [Rx] Clopidogrel [Plavix] 75 mg PO DAILY 12/08/16 [History] Cephalexin [Keflex] 500 mg PO BID #6 capsule 12/12/16 [Rx] Furosemide [Lasix] 40 mg PO DAILY 30 Days 12/12/16 [Rx] predniSONE [PredniSONE] 40 mg PO DAILY #10 tab 12/12/16 [Rx] Allergies/Adverse Reactions: 3 Allergy/AdvReac Type Severity Reaction Status Date / Time diphenhydramine Allergy Difficulty Verified 10/10/16 18:03 [From Benadryl] Breathing ivp dye Allergy See Uncoded 10/10/16 15:35 Comments - Respiratory Orders Smoking Cessation: Smoking cessation has been advised. For more information, call the [place] Tobacco Quit Line at 6-463-CHSH-NOW. CERTIFICATION: I certify that the transfer of the above named patient to an Extended Care Facility is necessary for the continuing treatment of the diagnosis listed. The above information is true and accurate reflection of patient's current condition. Confidential - Redisclosure prohibited without a patient's written consent.
== END 2016-12-12 16:53 | DRG 871 ==
LOC: EMEROO 02:40 → ICNU 05:27 → SUATTDRO 05:27 → ICNU 06:11 → 2ANU 12-09 15:11
PROVIDERS: ADMIT Internal Medicine Hematology & Oncology; ATTEND Family Medicine

== ENCOUNTER 2016-12-31 15:35 | Inpatient (IN) ==
[~2016-12-31 15:35] MED LIST: Aminoglycoside Consult 1 EACH MC ONE
[2016-12-31] MEDS ORDERED: Ipratropium/Albuterol Neb 3 ML ONE (17:23)
[2016-12-31] MEDS ORDERED: Furosemide 40 MG/4 ML VIAL ONE ×2 (17:27→17:30)
[2016-12-31] MEDS ORDERED: *HR* Morphine 2 MG/ML SYRINGE ONE (17:28)
[2016-12-31] MEDS ORDERED: Furosemide 80 MG in 0.9 % Sodium Chloride 50 ML IVPB ONE (17:37)
[2016-12-31] MEDS ORDERED: *HR* Morphine 2 MG/ML SYRINGE IVP ONE (17:38)
[2016-12-31 17:54] LABS: ABG Base Excess 0.2 mEq/L (-2.0 to 3.0); ABG HCO3 33 mEq/L (21-27); ABG Oxygen Saturation 99 % (95-98); ABG PO2 190 mmHg (85-104); ABG TCO2 35.8 mEq/L (20-26)
[2016-12-31 17:56] LABS: ABG PCO2 107 mmHg (35-45); ABG PH 7.09 pH Units (7.32-7.45); Blood Gas Modality BIPAP
[2016-12-31 17:57] LABS: Blood Gas FiO2 100 %
[2016-12-31] MEDS ORDERED: Naloxone 0.4 MG/ML INJ IVP PRN ×2 (18:08→18:24)
[2016-12-31 18:27] LABS: Calcium 9.8 mg/dL (8.6-10.8); Potassium 4.5 mEq/L (3.5-4.5)
--- NOTE | 2016-12-31 18:36 | Internal Med History&Physical ---
<Bairon Jimenez - Last Filed: 12/31/16 18:51> Date of Encounter: 12/31/16 Internal Medicine - H&P: HPI History of present illness: Ms. Hardy is a 81 year old female Internal Medicine - H&P: Meds Apixaban [Eliquis] 2.5 mg PO BID 10/10/16 [History] Simvastatin [Zocor] 20 mg PO QPM 10/10/16 [History] Albuterol Sulfate [Ventolin Hfa] 2 puff IH Q4H PRN 10/19/16 [History] Aspirin 81 mg PO DAILY 10/19/16 [History] Docusate [Colace] 100 mg PO DAILY PRN 10/19/16 [History] Fluticasone/Salmeterol [Advair 250-50 Diskus] 1 puff IH Q12H 10/19/16 [History] Levothyroxine [Levothyroxine Sodium] 137 mcg PO DAILY 10/19/16 [History] Sennosides [Senokot] 8.6 mg PO DAILY PRN 10/19/16 [History] Clopidogrel [Plavix] 75 mg PO DAILY 12/08/16 [History] Potassium Chloride 10 meq PO DAILY #30 12/20/16 [Rx] Bumetanide 0.5 mg PO BID 12/31/16 [History] Metoprolol [Lopressor] 12.5 - 25 mg PO BID 12/31/16 [History] 3 Allergy/AdvReac Type Severity Reaction Status Date / Time diphenhydramine Allergy Difficulty Verified 10/10/16 18:03 [From Benadryl] Breathing ivp dye Allergy See Uncoded 10/10/16 15:35 Comments All Systems PM: A 10-system review of systems was performed and is negative for pertinent findings except as documented above in the HPI. - Constitutional Vitals: Pulse BP Pulse Ox 105 155/74 97 12/31/16 18:35 12/31/16 17:23 12/31/16 18:31 Internal Med - H&P Results - Labs CBC & Chem 7: 12/31/16 17:45 Labs: BMP 12/31/16 17:45 Sodium 142 Potassium 4.5 Chloride 107 Carbon Dioxide 26 BUN 21 H Creatinine 1.45 H Glucose 220 H Calcium 9.8 Cardiac Enzymes 12/31/16 Range/Units 17:45 Troponin I 0.03 (0-0.03) ng/mL - ABG Interpretation ABG results: 12/31/16 17:32 ABG pH 7.09 L* ABG pCO2 107 H* ABG pO2 190 H ABG HCO3 33 H ABG Total CO2 35.8 H ABG O2 Saturation 99 H ABG Base Excess 0.2 - Impressions ITS Impressions Chest X-Ray 12/31/16 17:24 IMPRESSION: New right basilar opacity and small right pleural effusion. No substantial change otherwise. Findings may be related to edema or infection. D/ / Mirta Chiu MD / Mirta Chiu MD Interpreting Provider: Mirta Chiu MD - Attending Attestation I personally interviewed and examined this patient. I reviewed all labs and studies. I discussed the case with ROLLING MACHINE OPERATOR Vlad and I agree with her findings assessment and plan. I was present at the RAP page when patient initially got here. Patient was markedly respiratory distress requiring BiPAP. She responded to 80 of Lasix IV and 2 of morphine IV. She continues in A. fib with RVR and a Cardizem drip and her rate is improved to the low 100s. Blood pressure is stable. Her initial blood gas showed a profound acidosis, although now that she is more awake I do not see the reason to repeat it. We will continue to follow clinically. Chest x-ray shows pleural effusions as well as a new right lower lobe infiltrate. She is on antibiotics for healthcare associated pneumonia currently Zosyn and vancomycin. A Gómez catheter was placed. Case was discussed with her granddaughter. Cardiology will be consulted to assist with management of her atrial fibrillation. She is on Apixaban. A total of 79 minutes critical care time was spent in care and management of this patient. She was transferred to the ICU for close monitoring. <Ingrid Chu - Last Filed: 01/01/17 12:29> Date of Encounter: 01/01/17 Time of Encounter: 17:30 Assessment and Plan (1) Acute and chronic respiratory failure with hypoxia Current visit: Yes Status: Acute 1 patient arrives in respiratory distress diaphoretic sounds in the 70s placed on BiPAP given IV Lasix and breathing treatments. Respiratory status improves she is transferred to ICU for further monitoring suspect this is related to exacerbation of CHF/as well as pneumonia we will continue with diuresis and antibiotics obtain cardiac echo continue with oxygen titrated to maintain SPO2 greater than 92% 2 consult critical care (2) HCAP (healthcare-associated pneumonia) Current visit: Yes Status: Acute 1 patient has been experiencing increasing shortness of breath over the past 5 days. She has a history of acute on chronic respiratory failure and COPD in the past. She was admitted to the hospital approximately a month ago for pneumonia/CHF. She presented in respiratory failure hypoxic and Tachypneic. Chest x-ray did reveal left basilar air air space appears to be compatible with pneumonia. We will obtain blood cultures started on vancomycin and Zosyn renally dosed 2 continue with breathing treatments 3 continue on BiPAP titrating maintain SPO2 greater than 92% 4 continuous cardiac/SPO2 monitoring (3) Heart failure, systolic, with acute decompensation Current visit: Yes Status: Acute Patient has a history of systolic heart failure recently had Lasix changed to Bumex and sure patient has been compliant with her medications. She also has a history of atrial fibrillation and presented in A. fib RVR. She was given IV Lasix as well as morphine which did improve her respiratory state. We will continue with Lasix twice a day and morphine as needed. 2 we will obtain cardiac echo 3 continuous cardiac monitoring 4 trend troponins (4) Atrial fibrillation with rapid ventricular response Current visit: Yes Status: Acute 1 patient presented to ER with A. 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 Presently creatinine is 1.3 which appears to be baseline. We will continue to monitor closely we will be diuresing patient 2 monitor intake output daily weights 3 avoid nephrotoxins 4 renal dose antibiotics Qualifiers: Chronic kidney disease stage: stage 3 (moderate) Qualified Code(s): N18.3 - Chronic kidney disease, stage 3 (moderate) (7) Hypothyroidism Current visit: Yes Status: Chronic We will check TSH and continue with Synthroid Qualifiers: Hypothyroidism type: unspecified Qualified Code(s): E03.9 - Hypothyroidism , unspecified (8) COPD (chronic obstructive pulmonary disease) Current visit: Yes Status: Acute 1 we will continue with oxygen titrated to maintain SPO2 greater than 92% 2 continue with bronchodilators Qualifiers: COPD type: chronic bronchitis Chronic bronchitis type: simple Qualified Code(s): J41.0 - Simple chronic bronchitis (9) DVT prophylaxis Current visit: Yes Status: Acute on Eliquis Internal Medicine - H&P: HPI Chief complaint: Dyspnea Admitted From: Hospital to Hospital Transfer Plans for Post Hospital Care: Home History of present illness: Ms. Hardy is a 81 year old female past medical history of infrarenal abdominal aortic aneurysm PAD carotid stenosis hypothyroid hypertension COPD oxygen dependent CAD atrophic right kidney CKD 3. Information obtained from medical records, EMS as well as family member who is at bedside due to patient's request for state. According to [facility] records patient began to experience shortness of breath that started this morning. She continued to experience dyspnea despite the use of aerosol treatments she called EMS. She was transported to ER for evaluation according to records by the time she arrived to the ER she was speaking in full sentences without difficulty and was on 4 L nasal cannula saturating 100%. She did report a cough that is nonproductive and chronic she denied any chest pain however she did admit to some chills and denied fever. She denied any lower history swelling abdomen pain nausea vomiting or diarrhea. Lab work was completed the CBC 10.6 hemoglobin 9.3 hematocrit 31.1 platelets 246 chemistry sodium 143 potassium 3.8 chloride 105 bicarbonate 27 BUN 21 crit 1.38 glucose 148 troponin 0.01 BNP 420. Patient had A. fib RVR started on Cardizem drip chest x-ray did reveal increased left basilar airspace a pacer the compatible with pneumonia versus atelectasis. Small to moderate left pleural effusion not significantly changed. Requesting patient to be transferred to this facility for further workup and evaluation. She arrived to this facility and upon arrival rapid response was immediately called due to increasing shortness of breath and drop in oxygen saturation. According to EMS at bedside patient began to grow increasingly short of breath change nasal cannula over to face mask after patient's saturations dropped down to 77. They slowly improved to lower 80s. She is diaphoretic and obvious respiratory distress utilizing accessory muscles. She has scattered crackles throughout her lung cr she is tachycardic. Respiratory and Dr. Umana /Toyn are at bedside. Patient is given 40 mg of IV Lasix, morphine IV breathing treatment is placed on BiPAP. Her respiratory status improves she states she is feeling better. Granddaughter is at bedside she reports patient was admitted in November for respiratory failure related to pneumonia/CHF exacerbation. She was intubated at that time and was extubated 24 hours later. She was discharged on antibiotics as well as Bumex patient unsure if she has been compliant with her diuretic. Patient will be transferred to ICU , we will obtain a lactate troponin stat labs EKG chest x-ray. Past Med Surg Social Fam HX - Past Medical History Medical history: aortic aneurysm, atrial fibrillation, COPD, GERD, hyperlipidemia, hypertension, thyroid disease, other Psychiatric history: no psych history - Past Surgical History Surgical History: no surgical history, vascular surgery - Social History Smoking Status: Former smoker Smokeless Tobacco Status: No Alcohol use: none Drug use: none - Family History Mother Living Status: Cause of : Non-Hodgkin Hx Family Cardiac Disorders: Yes (Cardiac and hypertension) ROS unobtainable: other All Systems PM: A 10-system review of systems was performed and is negative for pertinent findings except as documented above in the HPI. Review of systems: Respiratory state - Constitutional Vitals: Pulse BP Pulse Ox 126 155/74 72 12/31/16 17:23 12/31/16 17:23 12/31/16 17:23 General appearance: Present: A&O X 1 Exam: She is diaphoretic and in respiratory distress - Head Head exam: Present: atraumatic, normocephalic - Eye Eye exam: Present: PERRL, conjuntiva pink, sclera anicteric Pupils: Present: PERRL - Neck Neck exam general surgery: Present: supple, trachea midline. Absent: lymphadenopathy - Respiratory Respiratory exam: Present: rales. Absent: accessory muscle use, rhonchi, wheezes - Cardiovascular Cardiovascular exam: Present: RRR, +S1, +S2. Absent: diastolic murmur, gallop, rubs, systolic murmur - GI/Abdominal GI/Abdominal exam: Present: normal bowel sounds, soft, no peritoneal signs. Absent: distended, tenderness - Extremities Exam Extremities exam: Present: pedal edema, warm, radial pulses palpable and symmetrical. Absent: calf tenderness, cyanotic - Neurological Exam Neurological exam: Present: alert - Skin Skin exam: Present: diaphoretic, intact Internal Med - H&P Results - Labs CBC & Chem 7: 12/31/16 18:51 12/31/16 17:45 - ABG Interpretation ABG results: 12/31/16 17:32 ABG pH 7.09 L* ABG pCO2 107 H* ABG pO2 190 H ABG HCO3 33 H ABG Total CO2 35.8 H ABG O2 Saturation 99 H ABG Base Excess 0.2 - EKG Data EKG comments: 12/31/16 18:39 Atrial fibrillation rate of 119 - Impressions ITS Impressions Chest X-Ray 12/31/16 17:24
[2016-12-31] MEDS ORDERED: Albuterol 2.5 MG/3 ML NEBULIZER IH PRN (18:58)
[2016-12-31] MEDS ORDERED: Vancomycin 1,250 MG in D5% in Water 250 ML IVPB ONE (19:00)
[2016-12-31] MEDS ORDERED: Furosemide 40 MG/4 ML VIAL IVP SCH (19:00)
[2016-12-31 19:04] LABS: Lymphocytes % 4.2 %
[2016-12-31 19:06] LABS: Basophils # 0.1 K/mcL (0.0-0.2); Basophils % 0.4 %; Eosinophils # 0.2 K/mcL (0.0-0.6); Hematocrit 36.1 % (35.3-44.9); Hemoglobin 10.8 g/dL (11.5-15.4); Immature Granulocytes % 0.5 % (0-4); Lymphocytes # 0.6 K/mcL (0.6-4.6); Mean Corpuscular HGB Conc 29.9 g/dL (31.6-35.5); Mean Corpuscular Volume 100.3 fL (83.0-100.0); Mean Platelet Volume 11.7 fL (9.4-12.4); Monocytes # 0.5 K/mcL (0.0-1.3); Monocytes % 3.3 %; Neutrophils # 13.7 K/mcL (1.6-8.9); Platelet Count 298 K/mcL (140-400); Red Cell Distribution Width 14.5 % (11.5-14.5); Segmented Neutrophils % 90.6 %
[2016-12-31 19:11] LABS: Activated Partial Thrombo Time 28.2 Seconds (26.0-36.0)
[2016-12-31 19:28] LABS: Platelet Estimate Normal (Normal)
[2016-12-31] MEDS ORDERED: Ondansetron 4 MG/2 ML VIAL IVP PRN (19:33)
[2016-12-31] MEDS ORDERED: Diphenoxylate/Atropine 1 TAB TABLET PO PRN (19:54)
[2016-12-31 20:00] LABS: Thyroid Stimulating Hormone 0.145 mcIU/mL (0.350-4.840)
[2016-12-31] MEDS: Ipratropium/Albuterol Neb 3 ML IH SCH ×2 (20:28→23:53)
[2016-12-31] MEDS: Piperacillin/Tazobactam 3.375 GM in D5% in Water (Mini-Bag+) 100 ML IVPB SCH (22:28)
[2016-12-31] MEDS: Furosemide 40 MG/4 ML VIAL IVP SCH (22:29)
[2016-12-31] MEDS ORDERED: NON-FORMULARY MEDICATION 1 EACH EACH (Fluticasone/Salmeterol [Advair 250-50 Diskus] 1 EACH IH SCH (23:45)
[2017-01-01] MEDS: APIXABAN 2.5 MG TABLET PO SCH ×3 (00:04→20:35)
[2017-01-01] MEDS: Budesonide/Formoterol 80/4.5 MDI IH SCH ×4 (00:10→20:13)
[2017-01-01 00:35] LABS: ABG Base Excess 10.5 mEq/L (-2.0 to 3.0); ABG HCO3 37 mEq/L (21-27); ABG Oxygen Saturation 94 % (95-98); ABG PCO2 58 mmHg (35-45); ABG PH 7.41 pH Units (7.32-7.45); ABG PO2 72 mmHg (85-104); ABG TCO2 38.6 mEq/L (20-26)
[2017-01-01 00:36] LABS: Blood Gas FiO2 32 %; Blood Gas Modality NC
[2017-01-01] MEDS ORDERED: Acetaminophen 325 MG TABLET PO PRN ×2 (04:22→09:10)
[2017-01-01] MEDS: Ipratropium/Albuterol Neb 3 ML IH SCH ×6 (04:27→23:55)
[2017-01-01] MEDS: Piperacillin/Tazobactam 3.375 GM in D5% in Water (Mini-Bag+) 100 ML IVPB SCH ×3 (04:37→20:27)
[2017-01-01] MEDS ORDERED: Vancomycin 1,000 MG in D5% in Water 250 ML IVPB SCH (07:00)
--- NOTE | 2017-01-01 07:41 | Pulmonology Consult Note ---
<Leann Rosario - Last Filed: 01/01/17 09:51> Date of Encounter: 01/01/17 Time of Encounter: 07:00 Assessment and Plan (1) Acute and chronic respiratory failure with hypoxia Current Visit: Yes Status: Acute patient arrived in respiratory distress diaphoretic and oxygen saturation in the 70s. Patient was placed on BiPAP with dramatic increase in oxygen saturation. Most likely due to a mixture of CHF exacerbation and possible pneumonia. Patient currently being diuresed with bumex and is on zosyn for possible pneumonia. Patient stable this AM on nasal cannula. VSs stable. No increased work of breathing noted. (2) HCAP (healthcare-associated pneumonia) Current Visit: Yes Status: Acute patient has been experiencing increasing shortness of breath over the past 5 days. She has a history of acute on chronic respiratory failure and COPD in the past. She was admitted to the hospital approximately a month ago for pneumonia/CHF. She presented in respiratory failure hypoxic and Tachypneic. Chest x-ray did reveal left basilar air air space appears to be compatible with pneumonia. Patient on zosyn. Continue breathing treatments as needed and BiPAP as tolerated. Patient at baseline now in NAD with nasal cannula and oxygen saturations in the 90s. (3) Heart failure, systolic, with acute decompensation Current Visit: Yes Status: Acute Patient has a history of systolic heart failure recently had Lasix changed to Bumex. She also has a history of atrial fibrillation and presented in A. fib RVR. She was given IV Lasix as well as morphine which did improve her respiratory state. Lasix was changed to bumex per patient request due to severe nausea we will obtain cardiac echo continuous cardiac monitoring (4) Atrial fibrillation with rapid ventricular response Current Visit: Yes Status: Acute Chronic condition patient presented to ER with A. 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 Presently creatinine is 1.3 which appears to be baseline. We will continue to monitor closely we will be diuresing patient 2 monitor intake output daily weights 3 avoid nephrotoxins 4 renal dose antibiotics (6) COPD (chronic obstructive pulmonary disease) Current Visit: Yes Status: Acute Chonic condition. Continue bronchodilators and home inhalers Qualifiers: COPD type: chronic bronchitis Chronic bronchitis type: simple Qualified Code(s): J41.0 - Simple chronic bronchitis (7) Hypertension Current Visit: Yes Status: Acute Chronic condition. Continue bumex and cardizem Qualifiers: Hypertension type: essential hypertension Qualified Code(s): I10 - Essential (primary) hypertension (8) Hypothyroidism Current Visit: Yes Status: Chronic Patient's TSH was low. Will hold medication today and check free T3 and T4 to determine if a reduction in medication is necessary Qualifiers: Hypothyroidism type: unspecified Qualified Code(s): E03.9 - Hypothyroidism , unspecified (9) DVT prophylaxis Current Visit: Yes Status: Acute Pt on eliquis History of Present Illness Consult date: 01/01/17 Reason for consult: hypoxemia Chief complaint: Respiratory Distress History of present illness: Ms. Hardy is a 81 year old female past medical history of hypothyroidism, hypertension, COPD oxygen dependent, and stage 3 CKD. Yesterday the patient was seen at [place] [facility] for SOB and increased work of breathing. Patient did report a cough that is nonproductive and chronic she denied any chest pain however she did admit to some chills and denied fever. Lab work was completed the CBC 10.6 hemoglobin 9.3 hematocrit 31.1 platelets 246 chemistry sodium 143 potassium 3.8 chloride 105 bicarbonate 27 BUN 21 crit 1.38 glucose 148 troponin 0.01 BNP 420. Patient had A. fib RVR started on Cardizem drip chest x-ray did reveal increased left basilar airspace compatible with pneumonia versus atelectasis. Small to moderate left pleural effusion not significantly changed. Transferred to this facility for further workup and evaluation. She arrived to this facility and upon arrival rapid response was immediately called due to increasing shortness of breath and drop in oxygen saturation. According to EMS at bedside patient began to grow increasingly short of breath change nasal cannula over to face mask after patient's saturations dropped down to 77. They slowly improved to lower 80s. She was diaphoretic with obvious respiratory distress utilizing accessory muscles. She had scattered crackles throughout her lung cr she was tachycardic. Patient was given 40 mg of IV Lasix, morphine IV, breathing treatments and placed on BiPAP. Her respiratory status improved. This AM patient is A&Ox3 and has oxygen saturations in the upper 90s on nasal cannula. No signs of respiratory distress. All vital signs are stable. Plan to transfer to the floor. Past Med Surg Social Fam HX - Past Medical History Medical history: aortic aneurysm, atrial fibrillation, COPD, GERD, hyperlipidemia, hypertension, thyroid disease, other Psychiatric history: no psych history - Past Surgical History Surgical History: no surgical history, vascular surgery - Social History Smoking Status: Former smoker Smokeless Tobacco Status: No Alcohol use: none Drug use: none - Family History Mother Living Status: Cause of : Non-Hodgkin Hx Family Cardiac Disorders: Yes (Cardiac and hypertension) Medications and Allergies Apixaban [Eliquis] 2.5 mg PO BID 10/10/16 [History] Simvastatin [Zocor] 20 mg PO QPM 10/10/16 [History] Albuterol Sulfate [Ventolin Hfa] 2 puff IH Q4H PRN 10/19/16 [History] Aspirin 81 mg PO DAILY 10/19/16 [History] Docusate [Colace] 100 mg PO DAILY PRN 10/19/16 [History] Fluticasone/Salmeterol [Advair 250-50 Diskus] 1 puff IH Q12H 10/19/16 [History] Levothyroxine [Levothyroxine Sodium] 137 mcg PO DAILY 10/19/16 [History] Sennosides [Senokot] 8.6 mg PO DAILY PRN 10/19/16 [History] Clopidogrel [Plavix] 75 mg PO DAILY 12/08/16 [History] Potassium Chloride 10 meq PO DAILY #30 12/20/16 [Rx] Bumetanide 0.5 mg PO BID 12/31/16 [History] Metoprolol [Lopressor] 12.5 - 25 mg PO BID 12/31/16 [History] 3 Allergy/AdvReac Type Severity Reaction Status Date / Time diphenhydramine Allergy Difficulty Verified 10/10/16 18:03 [From Benadryl] Breathing ivp dye Allergy See Uncoded 10/10/16 15:35 Comments All Systems: A 10-system review of systems was performed and is negative for pertinent findings except as documented above in the HPI. - Constitutional Constitutional: no fatigue, no fever(s), no headache(s) - EENT Eyes: as per HPI Ears: as per HPI Nose, mouth and throat: no disequilibrium, no headache(s), no neck pain - Cardiovascular Cardiovascular: no chest pain, no irregular heart rhythm, no lightheadedness - Respiratory Respiratory: cough, no hemoptysis, no pain on inspirtation - Gastrointestinal Gastrointestinal: no abdominal pain, no cramping, no diarrhea - Genitourinary Genitourinary: as per HPI - Musculoskeletal Musculoskeletal: as per HPI - Integumentary Integumentary: as per HPI - Neurological Neurological: as per HPI - Psychiatric Psychiatric: as per HPI - Endocrine Endocrine: as per HPI - Hematologic/Lymphatic Hematologic/Lymphatic: as per HPI - Allergic/Immunologic Allergic/Immunologic: as per HPI Physical Examination Vital Signs: Vital Signs, Last 4 Hours Pulse Resp BP Pulse Ox 01/01/17 07:38 93 01/01/17 07:00 99 20 118/51 98 01/01/17 06:00 99 18 103/56 97 01/01/17 05:00 102 20 122/57 96 01/01/17 04:30 24 95 01/01/17 04:00 102 18 127/58 96 General appearance: no acute distress, alert Eyes: nonicteric ENT: oropharynx moist Neck: supple, no JVD Effort: mildly labored Inspection: normal Auscultation: bilateral: diminished breath sounds Cardiovascular: other (patient originally in Afib RVR now NSR) Gastrointestinal: normoactive bowel sounds, soft, non-distended Integumentary: normal Extremities: no cyanosis, no clubbing, pink and warm Musculoskeletal: no deformities Gait: normal posture normal mental status, non-focal exam mood appropriate, affect normal Results - Laboratory Findings CBC and BMP: 12/31/16 18:51 12/31/16 17:45 ABG ABG pH 7.41 pH Units (7.32-7.45) 01/01/17 00:22 ABG pCO2 58 mmHg (35-45) H 01/01/17 00:22 ABG pO2 72 mmHg (85-104) L 01/01/17 00:22 ABG O2 Saturation 94 % (95-98) L 01/01/17 00:22 PT/INR, D-dimer PT 11.0 Seconds (9.4-12.1) 12/31/16 18:51 Abnormal lab findings: Abnormal lab results WBC 15.1 K/mcL (4.3-11.1) H 12/31/16 18:51 RBC 3.60 M/mcL (3.82-4.97) L 12/31/16 18:51 Hgb 10.8 g/dL (11.5-15.4) L D 12/31/16 18:51 MCV 100.3 fL (83.0-100.0) H 12/31/16 18:51 MCHC 29.9 g/dL (31.6-35.5) L 12/31/16 18:51 Neutrophils # 13.7 K/mcL (1.6-8.9) H 12/31/16 18:51 ABG pCO2 58 mmHg (35-45) H 01/01/17 00:22 ABG pO2 72 mmHg (85-104) L 01/01/17 00:22 ABG HCO3 37 mEq/L (21-27) H 01/01/17 00:22 ABG Total CO2 38.6 mEq/L (20-26) H 01/01/17 00:22 ABG O2 Saturation 94 % (95-98) L 01/01/17 00:22 ABG Base Excess 10.5 mEq/L (-2.0 to 3.0) H 01/01/17 00:22 BUN 21 mg/dL (7-20) H 12/31/16 17:45 Creatinine 1.45 mg/dL (0.57-1.11) H 12/31/16 17:45 Est GFR ( Amer) 42 (> 60) L 12/31/16 17:45 Est GFR (Non-Af Amer) 35 (> 60) L 12/31/16 17:45 Glucose 220 mg/dL (70-99) H 12/31/16 17:45 Calculated Osmolality 304 (280-300) H 12/31/16 17:45 TSH 0.145 mcIU/mL (0.350-4.840) L 12/31/16 17:45 - Diagnostic Findings Chest x-ray: report reviewed, image reviewed - Clinical Findings Intake & Output: Intake & Output 12/31/16 12/31/16 01/01/17 15:59 23:59 07:59 Intake Total 250 / 250 100 / 100 Output Total 1250 / 1250 475 / 475 Balance -1000 / -1000 -375 / -375 Weight 62.3 kg Consult Discharge Plan - Plan Referrals: Meenu Rascon, CUSTOM SHOE DESIGNER AND MAKER [Primary Care Provider] - <Shavon Patel - Last Filed: 01/01/17 10:02> Date of Encounter: 01/01/17 All Systems: A 10-system review of systems was performed and is negative for pertinent findings except as documented above in the HPI. Physical Examination Vital Signs: Vital Signs, Last 4 Hours Pulse Resp BP Pulse Ox 01/01/17 08:00 96 20 130/56 96 01/01/17 07:39 18 130/56 98 01/01/17 07:38 93 01/01/17 07:00 99 20 118/51 98 01/01/17 06:00 99 18 103/56 97 Results - Laboratory Findings CBC and BMP: 12/31/16 18:51 12/31/16 17:45 ABG ABG pH 7.41 pH Units (7.32-7.45) 01/01/17 00:22 ABG pCO2 58 mmHg (35-45) H 01/01/17 00:22 ABG pO2 72 mmHg (85-104) L 01/01/17 00:22 ABG O2 Saturation 94 % (95-98) L 01/01/17 00:22 PT/INR, D-dimer PT 11.0 Seconds (9.4-12.1) 12/31/16 18:51 Abnormal lab findings: Abnormal lab results WBC 15.1 K/mcL (4.3-11.1) H 12/31/16 18:51 RBC 3.60 M/mcL (3.82-4.97) L 12/31/16 18:51 Hgb 10.8 g/dL (11.5-15.4) L D 12/31/16 18:51 MCV 100.3 fL (83.0-100.0) H 12/31/16 18:51 MCHC 29.9 g/dL (31.6-35.5) L 12/31/16 18:51 Neutrophils # 13.7 K/mcL (1.6-8.9) H 12/31/16 18:51 ABG pCO2 58 mmHg (35-45) H 01/01/17 00:22 ABG pO2 72 mmHg (85-104) L 01/01/17 00:22 ABG HCO3 37 mEq/L (21-27) H 01/01/17 00:22 ABG Total CO2 38.6 mEq/L (20-26) H 01/01/17 00:22 ABG O2 Saturation 94 % (95-98) L 01/01/17 00:22 ABG Base Excess 10.5 mEq/L (-2.0 to 3.0) H 01/01/17 00:22 BUN 21 mg/dL (7-20) H 12/31/16 17:45 Creatinine 1.45 mg/dL (0.57-1.11) H 12/31/16 17:45 Est GFR ( Amer) 42 (> 60) L 12/31/16 17:45 Est GFR (Non-Af Amer) 35 (> 60) L 12/31/16 17:45 Glucose 220 mg/dL (70-99) H 12/31/16 17:45 Calculated Osmolality 304 (280-300) H 12/31/16 17:45 B-Natriuretic Peptide 430 pg/mL (0-100) H 01/01/17 08:45 TSH 0.145 mcIU/mL (0.350-4.840) L 12/31/16 17:45 Free T4 1.49 ng/dl (0.70-1.48) H 01/01/17 08:45 - Clinical Findings Intake & Output: Intake & Output 12/31/16 01/01/17 01/01/17 23:59 07:59 15:59 Intake Total 250 / 250 100 / 100 350 / 350 Output Total 1250 / 1250 475 / 475 Balance -1000 / -1000 -375 / -375 350 / 350 Weight 62.3 kg - Attending Attestation I examined this patient and my medical decision-making was reviewed with the Resident Physician. I agree with the documented findings, disposition and treatment plan as described except to the extent set forth below. Patient seen and examined. Labs, radiology, chart personally reviewed. 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 ABG has improved and she is clinically better. I suspect there might be underlying obstructive airway disease with hypercapnia and empiric short course of systemic steroid might be helpful. Noninvasive ventilation as needed. Cardiovascular: Branch Examiner has seen patient. I suspect there could be a relationship with excessive levothyroxin which will be holding it today and check free T3 and free T4. Patient is on anticoagulation. Patient has a reaction to Lasix and to stop that. GI: Nutrition per dietary and GI prophylaxis per routine Heme: DVT prophylaxis per routine ID: Continue antibiotics and plan to de-escalation Renal; urine out put and renal funtion reviewed. DC Gómez catheter Endorcine: blood glucose is monitored Lines: all lines checked and no evidence of infections Skin: skin care to prevent pressure ulcers per nursing routine care Overall patient is stable and she can be transferred to the floor.
[2017-01-01] MEDS: Furosemide 40 MG/4 ML VIAL IVP SCH (08:14)
[2017-01-01] MEDS ORDERED: Aspirin 81 MG TAB.CHEW PO SCH (09:00)
[2017-01-01] MEDS ORDERED: Pantoprazole 40 MG VIAL IVPB SCH ×2 (09:00)
--- NOTE | 2017-01-01 09:09 | Electrophysiology Consult Note ---
Date of Encounter: 01/01/17 Time of Encounter: 09:04 Assessment and Plan (1) Atrial fibrillation Current Visit: No Status: Chronic Unknown duration, likely chronic. RVR likely secondary to respiratory status. Recommend continued rate control and anticoagulation. Qualifiers: Atrial fibrillation type: persistent Qualified Code(s): I48.1 - Persistent atrial fibrillation Discussion w patient/family: The assessment and plan as outlined above was discussed with the patient and/or family members who expressed understanding and agreement. All questions were answered. Thank you for involving us in the care of your patient. Please call with any questions. History of Present Illness Consult date: 01/01/17 Requesting physician: Philippe Bowden Consult reason: AF with RVR Chief complaint: SOB History of present illness: Ms. Hardy is a 81 year old female with a history of COPD, CKD, PVD, and atrial fiibrillation. She presented with respiratory failure and was noted to have AF with RVR. She has a history of AF which appears to be at least persitent. Has been rate controlled and anticoagluated. Has a known history of cardiomyopathy of uncertain etiology, last echo revealed EF of 40 %. Past Med Surg Social Fam HX - Past Medical History Medical history: aortic aneurysm, atrial fibrillation, COPD, GERD, hyperlipidemia, hypertension, thyroid disease, other Psychiatric history: no psych history - Past Surgical History Surgical History: no surgical history, vascular surgery - Social History Smoking Status: Former smoker Smokeless Tobacco Status: No Alcohol use: none Drug use: none - Family History Mother Living Status: Cause of : Non-Hodgkin Hx Family Cardiac Disorders: Yes (Cardiac and hypertension) Medications and Allergies Apixaban [Eliquis] 2.5 mg PO BID 10/10/16 [History] Simvastatin [Zocor] 20 mg PO HS 10/10/16 [History] Albuterol Sulfate [Ventolin Hfa] 2 puff IH Q4H PRN 10/19/16 [History] Aspirin 81 mg PO DAILY 10/19/16 [History] Docusate [Colace] 100 mg PO PRN PRN 10/19/16 [History] Fluticasone/Salmeterol [Advair 250-50 Diskus] 1 each IH Q12H 10/19/16 [History] Levothyroxine [Levothyroxine Sodium] 137 mcg PO DAILY@0630 10/19/16 [History] Sennosides [Senokot] 8.6 mg PO PRN PRN 10/19/16 [History] Clopidogrel [Plavix] 75 mg PO DAILY 12/08/16 [History] Potassium Chloride 10 meq PO DAILY #30 12/20/16 [Rx] Advair 250-50 Diskus 1 inh Q12HR 12/31/16 [History] Bumetanide 0.5 mg PO DAILY 12/31/16 [History] Colace 12/31/16 [History] Metoprolol [Lopressor] 12.5 mg PO BID 12/31/16 [History] Omeprazole 20 PO DAILY 12/31/16 [History] Sennosides 8.6 PRN 12/31/16 [History] 3 Allergy/AdvReac Type Severity Reaction Status Date / Time diphenhydramine Allergy Difficulty Verified 10/10/16 18:03 [From Benadryl] Breathing ivp dye Allergy See Uncoded 10/10/16 15:35 Comments All Systems Review: A 10-system review of systems was performed and is negative for pertinent findings except as documented above in the HPI. Physical Examination Vital Signs, Last 4 Hours Pulse Resp BP Pulse Ox 01/01/17 08:00 96 20 130/56 96 01/01/17 07:39 18 130/56 98 01/01/17 07:38 93 01/01/17 07:00 99 20 118/51 98 01/01/17 06:00 99 18 103/56 97 General: Conversant, No Apparent Distress HEENT: Atraumatic, Normocephaly, Mucus Membranes Moist Neck: No JVD, Normal carotid pulses Cardiac: Other (Irreg) Lungs: Other (scattered ronchi, decreased at bases) Neuro: No focal deficits noted Abdomen: Soft, Non-Tender Skin: No rashes noted on visualized skin Extremities: No Edema Results 12/31/16 18:51 12/31/16 17:45 Lab Results 12/31/16 12/31/16 12/31/16 17:45 17:45 18:51 WBC 15.1 H Hgb 10.8 L D Hct 36.1 Plt Count 298 INR APTT Sodium 142 Potassium 4.5 Chloride 107 Carbon Dioxide 26 BUN 21 H Creatinine 1.45 H Glucose 220 H Calcium 9.8 Troponin I 0.03 TSH 0.145 L 12/31/16 18:51 WBC Hgb Hct Plt Count INR 1.0 APTT 28.2 Sodium Potassium Chloride Carbon Dioxide BUN Creatinine Glucose Calcium Troponin I TSH - EKG Interpretation EKG results cardiology: personally reviewed (AR with RVR, nonspecific ST changes.) Consult Discharge Plan - Plan Referrals: Meenu Rascon, GRADUATION COACH [Primary Care Provider] -
[2017-01-01] MEDS ORDERED: Ondansetron 4 MG/2 ML VIAL IVP PRN (09:10)
[2017-01-01] MEDS ORDERED: Albuterol 2.5 MG/3 ML NEBULIZER IH PRN (09:10)
[2017-01-01] MEDS ORDERED: Diphenoxylate/Atropine 1 TAB TABLET PO PRN (09:10)
[2017-01-01 09:51] LABS: Triiodothyronine (T3) Free 2.18 pg/mL (1.71-3.71)
[2017-01-01] MEDS ORDERED: predniSONE 20 MG TABLET PO SCH (17:00)
[2017-01-01] MEDS: predniSONE 20 MG TABLET PO SCH (17:27)
[2017-01-01] MEDS: Bumetanide 1 MG TABLET PO SCH (17:27)
[2017-01-01] MEDS ORDERED: Bumetanide 1 MG TABLET PO SCH (18:00)
[2017-01-02] MEDS: Ipratropium/Albuterol Neb 3 ML IH SCH ×6 (03:59→23:34)
[2017-01-02] MEDS: Piperacillin/Tazobactam 3.375 GM in D5% in Water (Mini-Bag+) 100 ML IVPB SCH ×3 (04:15→20:23)
[2017-01-02] MEDS: Bumetanide 1 MG TABLET PO SCH ×2 (05:52→17:24)
[2017-01-02] MEDS: Budesonide/Formoterol 80/4.5 MDI IH SCH ×2 (07:37→20:34)
[2017-01-02 08:05] LABS: Basophils % 0.1 %; Eosinophils % 0.1 %; Hematocrit 28.1 % (35.3-44.9); Immature Granulocytes % 0.3 % (0-4); Lymphocytes # 0.7 K/mcL (0.6-4.6); Lymphocytes % 8.8 %; Mean Corpuscular Volume 96.9 fL (83.0-100.0); Mean Platelet Volume 12.2 fL (9.4-12.4); Monocytes # 0.5 K/mcL (0.0-1.3); Monocytes % 6.3 %; Neutrophils # 6.3 K/mcL (1.6-8.9); Platelet Count 213 K/mcL (140-400); Red Cell Distribution Width 14.6 % (11.5-14.5); Segmented Neutrophils % 84.4 %
[2017-01-02 08:12] LABS: Hemoglobin 8.7 g/dL (11.5-15.4)
[2017-01-02] MEDS: predniSONE 20 MG TABLET PO SCH ×2 (08:43→17:24)
[2017-01-02] MEDS: Aspirin 81 MG TAB.CHEW PO SCH (08:43)
[2017-01-02] MEDS: APIXABAN 2.5 MG TABLET PO SCH ×2 (08:44→20:25)
[2017-01-02 08:48] LABS: Calcium 9.6 mg/dL (8.6-10.8); Potassium 3.7 mEq/L (3.5-4.5)
--- NOTE | 2017-01-02 17:18 | Emergency Department Note ---
Disposition Clinical Impression: Respiratory distress Disposition: Admitted As Inpatient Condition: Good General Adult HPI - General Source: EMS Mode of arrival: EMS Limitations: altered mental status Nursing Notes Reviewed: Yes Vital Signs Reviewed: Yes - History of Present Illness HPI Narrative: 81 year old female presents to the ED in respiratory distress. EMS states that she was hypoxic upon arrival and placed her on a NRB and brought her back to 100 %, although she is increasingly labored breathing and appears increasingly altered GCS <10. Patient has a history of COPD, and ACS and has a infrrenal aneuryms. Vivi was intubated on arrival due to respiratory distress and we will likely do a sepsis workup in addition to altered mental status workup. Otherwise she is a difficult historian due to altered mental status. Obvisous wheezing and crackles can be heard on exam - Related Data Home Medications Medication Instructions Recorded Confirmed Apixaban [Eliquis] 2.5 mg PO BID 10/10/16 01/01/17 Simvastatin [Zocor] 20 mg PO QPM 10/10/16 01/01/17 Albuterol Sulfate [Ventolin Hfa] 2 puff IH Q4H PRN 10/19/16 01/01/17 Aspirin 81 mg PO DAILY 10/19/16 01/01/17 Docusate [Colace] 100 mg PO DAILY PRN 10/19/16 01/01/17 Fluticasone/Salmeterol [Advair 1 puff IH Q12H 10/19/16 01/01/17 250-50 Diskus] Levothyroxine [Levothyroxine 137 mcg PO DAILY 10/19/16 01/01/17 Sodium] Sennosides [Senokot] 8.6 mg PO DAILY PRN 10/19/16 01/01/17 Clopidogrel [Plavix] 75 mg PO DAILY 12/08/16 01/01/17 Bumetanide 0.5 mg PO BID 12/31/16 01/01/17 Metoprolol [Lopressor] 12.5 - 25 mg PO BID 12/31/16 01/01/17 Previous Rx's Medication Instructions Recorded Potassium Chloride 10 meq PO DAILY #30 12/20/16 Allergies Allergy/AdvReac Type Severity Reaction Status Date / Time diphenhydramine Allergy Difficulty Verified 10/10/16 18:03 [From Benadryl] Breathing ivp dye Allergy See Uncoded 10/10/16 15:35 Comments Review of Systems: ROS given by EMS Limitations: ROS unobtainable due to patients medical condition Constitutional: Reports: fever, chills, weakness Eyes: Denies: eye pain, eye discharge, vision change ENT ED: Denies: ear pain, throat pain, dental pain, hearing loss, epistaxis, congestion, dysphagia Cardiovascular: Reports: chest pain, palpitations Respiratory: Reports: cough, dyspnea, wheezes Gastrointestinal: Denies: abdominal pain, nausea, vomiting, diarrhea, constipation, hematemesis, melena, hematochezia Genitourinary: Denies: dysuria, frequency, hematuria, discharge Musculoskeletal: Denies: back pain, neck pain, arthralgia, myalgia Integumentary: Denies: rash, abrasion, lesions Neurological: Denies: headache, weakness, numbness, paresthesias, confusion, abnormal gait, vertigo Psychiatric: Denies: anxiety, depression, suicidal thoughts, homicidal thoughts , auditory hallucinations, visual hallucinations Endocrine: Denies: fatigue Hematological/Lymphatic: Denies: easy bleeding, easy bruising Allergic/Immunologic: Denies: facial swelling, urticaria Past Medical History - Past Medical History Medical history: Reports: aortic aneurysm, atrial fibrillation, COPD, GERD, hyperlipidemia, hypertension, thyroid disease, other Surgical history: Reports: no surgical history, vascular surgery Psychiatric history: Reports: no psych history - Social History Smoking Status: Former smoker Smokeless Tobacco Status: No Alcohol use: Reports: none Drug use: Reports: none Physical Exam - General Limitations: altered mental status General appearance: other (respiratory distress) - Head Head exam: atraumatic, normocephalic, normal inspection - Eye Eye exam: Present: normal appearance, PERRL, EOMI - Expanded Eye Exam Pupils: Left: reactive - ENT ENT exam: normal exam, normal oropharynx, mucous membranes moist - Expanded ENT Exam External ear exam: Present: normal external inspection Mouth exam: Present: normal external inspection Teeth exam: Present: normal inspection Throat exam: Present: normal inspection - Neck Neck exam: Present: normal inspection, full ROM, trachea midline - Chest Chest inspection: Present: normal inspection, symmetric chest wall rise - Respiratory Respiratory exam: Present: respiratory distress, wheezes - Cardiovascular Cardiovascular exam: Present: normal rhythm, tachycardia, irregular rhythm, normal heart sounds - Abdominal Exam Abdominal exam: Present: soft, Non-Tender. Absent: tenderness, distention, guarding, rebound, rigidity - Extremities Exam Extremities exam: Present: normal inspection, full ROM. Absent: tenderness, pedal edema - Expanded Upper Extremity Exam Shoulder exam: Present: normal inspection, full ROM Arm exam: Present: normal inspection, full ROM Elbow exam: Present: normal inspection, full ROM Forearm/Wrist exam: Present: normal inspection, full ROM Hand exam: Present: normal inspection, full ROM Vascular exam: Normal: capillary refill, radial pulse - Expanded Lower Extremity Exam Hip/Pelvis exam: Present: normal inspection, full ROM Upper leg exam: Present: normal inspection, full ROM Knee exam: Present: normal inspection, full ROM Lower leg exam: Present: normal inspection, full ROM Ankle exam: Present: normal inspection, full ROM Foot/toe exam: Present: normal inspection, full ROM Neurovascular/Tendon exam: Absent: motor deficit, sensory deficit, tendon deficit - Back Exam Back exam: Present: normal inspection, full ROM. Absent: tenderness - Neurological Exam Neurological exam: Present: reflexes normal. Absent: alert, oriented X3 - Expanded Neurological Exam Coma Scale Eye Opening: To Pain Coma Scale Motor Response: Withdraws to Pain Coma Scale Verbal Response: Confused Coma Scale Total: 10 - Psychiatric Psychiatric exam: Present: normal affect, normal mood - Skin Skin exam: Present: warm, dry, intact, normal color Course Course Narrative: vivi has been intubated and we will do altered mental status workup in addition to sepsis rule out. We will admit to ICU after workup has completed. In the meantime we will keep on ventilator and provide breathing treatments. My cliincal suspicion is pulmonary with respiratory distress secondary to COPD excerbation. Vital Signs Pulse Rate 126 12/31/16 17:23 Blood Pressure 155/74 12/31/16 17:23 O2 Sat by Pulse Oximetry 72 12/31/16 17:23 Temperature 98.2 F 01/02/17 16:07 Pulse Rate 105 01/02/17 16:00 Respiratory Rate 23 01/02/17 16:00 Blood Pressure 86/62 01/02/17 16:00 O2 Sat by Pulse Oximetry 95 01/02/17 16:00 Procedures - Intubation Time out performed: No sedative: Etomidate Mg Given: 20 paralytic: Rocuronium Mg Given: 100 Laryngoscope: Frantz ET Tube Size: Oral ET Tube Uncuffed: No Tube Secured Depth (cm): 23 Tube Secured Location: lips Tube Placement Confirmation: visualized tube passing through cords, equal breath sounds bilaterally, no breath sounds over epigastrium, confirmation by capnometry Patient Tolerated Procedure: no complications Intubation Complications: none Medical Decision Making - Lab Data Result diagrams: 01/03/17 05:38 01/02/17 07:27 Lab Results 12/31/16 12/31/16 12/31/16 Range/Units 17:32 17:45 17:45 WBC (4.3-11.1) K/mcL RBC (3.82-4.97) M/mcL Hgb (11.5-15.4) g/dL Hct (35.3-44.9) % MCV (83.0-100.0) fL MCH (28.0-33.3) pg MCHC (31.6-35.5) g/dL RDW (11.5-14.5) % Plt Count (140-400) K/mcL MPV (9.4-12.4) fL Immature Gran % (0-4) % Seg Neutrophils % % Lymphocytes % % Monocytes % % Eosinophils % % Basophils % % Neutrophils # (1.6-8.9) K/mcL Lymphocytes # (0.6-4.6) K/mcL Monocytes # (0.0-1.3) K/mcL Eosinophils # (0.0-0.6) K/mcL Basophils # (0.0-0.2) K/mcL Platelet Estimate (Normal) PT (9.4-12.1) Seconds INR APTT (26.0-36.0) Seconds ABG pH 7.09 L* (7.32-7.45) pH Units ABG pCO2 107 H* (35-45) mmHg ABG pO2 190 H (85-104) mmHg ABG HCO3 33 H (21-27) mEq/L ABG Total CO2 35.8 H (20-26) mEq/L ABG O2 Saturation 99 H (95-98) % ABG Base Excess 0.2 (-2.0 to 3.0) mEq/L Blood Gas Modality BIPAP Inspired O2 100 % Sodium 142 (136-145) mEq/L Potassium 4.5 (3.5-4.5) mEq/L Chloride 107 (98-109) mEq/L Carbon Dioxide 26 (19-29) mEq/L BUN 21 H (7-20) mg/dL Creatinine 1.45 H (0.57-1.11) mg/dL Est GFR ( Amer) 42 L (> 60) Est GFR (Non-Af Amer) 35 L (> 60) BUN/Creatinine Ratio 14 (6-26) Glucose 220 H (70-99) mg/dL Calculated Osmolality 304 H (280-300) Lactic Acid (0.5-2.2) mmol/L Calcium 9.8 (8.6-10.8) mg/dL Troponin I 0.03 (0-0.03) ng/mL B-Natriuretic Peptide (0-100) pg/mL TSH 0.145 L (0.350-4.840) mcIU/mL Free T4 (0.70-1.48) ng/dl Free T3 (1.71-3.71) pg/mL 12/31/16 12/31/16 12/31/16 Range/Units 18:51 18:51 18:51 WBC 15.1 H (4.3-11.1) K/mcL RBC 3.60 L (3.82-4.97) M/mcL Hgb 10.8 L D (11.5-15.4) g/dL Hct 36.1 (35.3-44.9) % MCV 100.3 H (83.0-100.0) fL MCH 30.0 (28.0-33.3) pg MCHC 29.9 L (31.6-35.5) g/dL RDW 14.5 (11.5-14.5) % Plt Count 298 (140-400) K/mcL MPV 11.7 (9.4-12.4) fL Immature Gran % 0.5 (0-4) % Seg Neutrophils % 90.6 % Lymphocytes % 4.2 % Monocytes % 3.3 % Eosinophils % 1.0 % Basophils % 0.4 % Neutrophils # 13.7 H (1.6-8.9) K/mcL Lymphocytes # 0.6 (0.6-4.6) K/mcL Monocytes # 0.5 (0.0-1.3) K/mcL Eosinophils # 0.2 (0.0-0.6) K/mcL Basophils # 0.1 (0.0-0.2) K/mcL Platelet Estimate Normal (Normal) PT 11.0 (9.4-12.1) Seconds INR 1.0 APTT 28.2 (26.0-36.0) Seconds ABG pH (7.32-7.45) pH Units ABG pCO2 (35-45) mmHg ABG pO2 (85-104) mmHg ABG HCO3 (21-27) mEq/L ABG Total CO2 (20-26) mEq/L ABG O2 Saturation (95-98) % ABG Base Excess (-2.0 to 3.0) mEq/L Blood Gas Modality Inspired O2 % Sodium (136-145) mEq/L Potassium (3.5-4.5) mEq/L Chloride (98-109) mEq/L Carbon Dioxide (19-29) mEq/L BUN (7-20) mg/dL Creatinine (0.57-1.11) mg/dL Est GFR ( Amer) (> 60) Est GFR (Non-Af Amer) (> 60) BUN/Creatinine Ratio (6-26) Glucose (70-99) mg/dL Calculated Osmolality (280-300) Lactic Acid 1.4 (0.5-2.2) mmol/L Calcium (8.6-10.8) mg/dL Troponin I (0-0.03) ng/mL B-Natriuretic Peptide (0-100) pg/mL TSH (0.350-4.840) mcIU/mL Free T4 (0.70-1.48) ng/dl Free T3 (1.71-3.71) pg/mL 01/01/17 01/01/17 01/01/17 Range/Units 00:22 08:45 08:45 WBC (4.3-11.1) K/mcL RBC (3.82-4.97) M/mcL Hgb (11.5-15.4) g/dL Hct (35.3-44.9) % MCV (83.0-100.0) fL MCH (28.0-33.3) pg MCHC (31.6-35.5) g/dL RDW (11.5-14.5) % Plt Count (140-400) K/mcL MPV (9.4-12.4) fL Immature Gran % (0-4) % Seg Neutrophils % % Lymphocytes % % Monocytes % % Eosinophils % % Basophils % % Neutrophils # (1.6-8.9) K/mcL Lymphocytes # (0.6-4.6) K/mcL Monocytes # (0.0-1.3) K/mcL Eosinophils # (0.0-0.6) K/mcL Basophils # (0.0-0.2) K/mcL Platelet Estimate (Normal) PT (9.4-12.1) Seconds INR APTT (26.0-36.0) Seconds ABG pH 7.41 (7.32-7.45) pH Units ABG pCO2 58 H (35-45) mmHg ABG pO2 72 L (85-104) mmHg ABG HCO3 37 H (21-27) mEq/L ABG Total CO2 38.6 H (20-26) mEq/L ABG O2 Saturation 94 L (95-98) % ABG Base Excess 10.5 H (-2.0 to 3.0) mEq/L Blood Gas Modality NC Inspired O2 32 % Sodium (136-145) mEq/L Potassium (3.5-4.5) mEq/L Chloride (98-109) mEq/L Carbon Dioxide (19-29) mEq/L BUN (7-20) mg/dL Creatinine (0.57-1.11) mg/dL Est GFR ( Amer) (> 60) Est GFR (Non-Af Amer) (> 60) BUN/Creatinine Ratio (6-26) Glucose (70-99) mg/dL Calculated Osmolality (280-300) Lactic Acid (0.5-2.2) mmol/L Calcium (8.6-10.8) mg/dL Troponin I (0-0.03) ng/mL B-Natriuretic Peptide 430 H (0-100) pg/mL TSH (0.350-4.840) mcIU/mL Free T4 1.49 H (0.70-1.48) ng/dl Free T3 2.18 (1.71-3.71) pg/mL 01/02/17 01/02/17 Range/Units 07:27 07:27 WBC 7.4 D (4.3-11.1) K/mcL RBC 2.90 L (3.82-4.97) M/mcL Hgb 8.7 L D (11.5-15.4) g/dL Hct 28.1 L (35.3-44.9) % MCV 96.9 (83.0-100.0) fL MCH 30.0 (28.0-33.3) pg MCHC 31.0 L (31.6-35.5) g/dL RDW 14.6 H (11.5-14.5) % Plt Count 213 (140-400) K/mcL MPV 12.2 (9.4-12.4) fL Immature Gran % 0.3 (0-4) % Seg Neutrophils % 84.4 % Lymphocytes % 8.8 % Monocytes % 6.3 % Eosinophils % 0.1 % Basophils % 0.1 % Neutrophils # 6.3 (1.6-8.9) K/mcL Lymphocytes # 0.7 (0.6-4.6) K/mcL Monocytes # 0.5 (0.0-1.3) K/mcL Eosinophils # 0.0 (0.0-0.6) K/mcL Basophils # 0.0 (0.0-0.2) K/mcL Platelet Estimate (Normal) PT (9.4-12.1) Seconds INR APTT (26.0-36.0) Seconds ABG pH (7.32-7.45) pH Units ABG pCO2 (35-45) mmHg ABG pO2 (85-104) mmHg ABG HCO3 (21-27) mEq/L ABG Total CO2 (20-26) mEq/L ABG O2 Saturation (95-98) % ABG Base Excess (-2.0 to 3.0) mEq/L Blood Gas Modality Inspired O2 % Sodium 141 (136-145) mEq/L Potassium 3.7 (3.5-4.5) mEq/L Chloride 101 (98-109) mEq/L Carbon Dioxide 31 H (19-29) mEq/L BUN 18 (7-20) mg/dL Creatinine 1.62 H (0.57-1.11) mg/dL Est GFR ( Amer) 37 L (> 60) Est GFR (Non-Af Amer) 31 L (> 60) BUN/Creatinine Ratio 11 (6-26) Glucose 131 H (70-99) mg/dL Calculated Osmolality 296 (280-300) Lactic Acid (0.5-2.2) mmol/L Calcium 9.6 (8.6-10.8) mg/dL Troponin I (0-0.03) ng/mL B-Natriuretic Peptide (0-100) pg/mL TSH (0.350-4.840) mcIU/mL Free T4 (0.70-1.48) ng/dl Free T3 (1.71-3.71) pg/mL - EKG Data EKG #1 EKG attestation: Yes I reviewed and interpreted this EKG. EKG results narrative: atrial fibrillation with rate of 126. NO STEMI. no old ekg. Critical Care Time Critical Care Time: Yes Total Critical Care Time: 45 Attestation: The high probability of a clinically significant, sudden or life threatening deterioration of the cardiopulmonary system(s) required my full and direct attention, intervention and personal management. The aggregate critical care time was [40] minutes. This time is in addition to time spent performing reported procedures but includes the following: [x Data Review and interpretation [x] Patient assessment and monitoring of vital signs [x] Documentation [x] Medication orders and management
[2017-01-02] MEDS: Docusate Oral Soln 100 MG/10 ML UDC PO SCH (17:24)
--- NOTE | 2017-01-02 21:48 | Electrocardiograph Report ---
[address] [place] [address] Test Date: 2016-12-31 Pat Name: Yoon Hardy Department: 112 Room: [facility] Gender: F [employer] Vertical: BETZAIDA : [id number] Requested By: Philippe Bowden Order Number: [id number] Reading MD: Fredy Rios MD Measurements Intervals [place] Rate: 119 P: MO: 0 QRS: 11 QRSD: 124 T: 144 QT: 318 QTc: 389 Interpretive Statements ATRIAL FIBRILLATION WITH RAPID VENTRICULAR RESPONSE Poor R wave progression Electronically Signed On 01-02-2017 21:47:10 EDT by Fredy Rios MD
[2017-01-03] MEDS: Ipratropium/Albuterol Neb 3 ML IH SCH ×5 (04:04→20:13)
[2017-01-03] MEDS: Piperacillin/Tazobactam 3.375 GM in D5% in Water (Mini-Bag+) 100 ML IVPB SCH ×3 (04:20→20:46)
[2017-01-03] MEDS: Bumetanide 1 MG TABLET PO SCH ×2 (05:30→17:28)
[2017-01-03 06:10] LABS: Basophils % 0.1 %; Hematocrit 29.4 % (35.3-44.9); Immature Granulocytes % 0.5 % (0-4); Lymphocytes # 0.6 K/mcL (0.6-4.6); Lymphocytes % 6.4 %; Mean Corpuscular HGB Conc 30.6 g/dL (31.6-35.5); Mean Corpuscular Hemoglobin 29.6 pg (28.0-33.3); Mean Corpuscular Volume 96.7 fL (83.0-100.0); Mean Platelet Volume 12.2 fL (9.4-12.4); Monocytes # 0.5 K/mcL (0.0-1.3); Monocytes % 5.5 %; Neutrophils # 8.2 K/mcL (1.6-8.9); Platelet Count 259 K/mcL (140-400); Red Blood Count 3.04 M/mcL (3.82-4.97); Red Cell Distribution Width 14.6 % (11.5-14.5); Segmented Neutrophils % 87.5 %
[2017-01-03] MEDS: Budesonide/Formoterol 80/4.5 MDI IH SCH ×2 (07:56→20:13)
[2017-01-03 09:14] LABS: Potassium 3.7 mEq/L (3.5-4.5)
[2017-01-03 09:15] LABS: Calcium 9.7 mg/dL (8.6-10.8); Magnesium 1.2 mg/dL (1.6-2.6); Phosphorous 3.1 mg/dL (2.3-4.7)
[2017-01-03] MEDS: Docusate Oral Soln 100 MG/10 ML UDC PO SCH (09:26)
[2017-01-03] MEDS: predniSONE 20 MG TABLET PO SCH ×2 (09:27→17:28)
[2017-01-03] MEDS: Aspirin 81 MG TAB.CHEW PO SCH (09:27)
[2017-01-03] MEDS: APIXABAN 2.5 MG TABLET PO SCH ×2 (09:28→20:45)
--- NOTE | 2017-01-03 10:02 | Internal Med Progress Note ---
Date of Encounter: 01/03/17 Time of Encounter: 09:20 - Assessment and plan (1) Acute and chronic respiratory failure with hypoxia Status: Acute Assessment and plan: Multifactorial-likely pulmonary edema due to underlying CHF, cannot rule out pneumonia. Responding well to IV Bumex, continue for now. Continue IV antibiotics. Supplemental oxygen and supportive care. (2) HCAP (healthcare-associated pneumonia) Status: Acute Assessment and plan: Follow-up blood cultures. Patient is currently not septic. Continue IV Zosyn. Supplemental oxygen. (3) CHF (congestive heart failure) Status: Acute Assessment and plan: Patient has known history of cardiomyopathy. Echocardiogram shows significantly reduced ejection fraction around 35%, moderate to severe left atrial dilation, moderate to severe mitral regurgitation, moderate pulmonary hypertension. Continue beta zack-increase the dose of metoprolol. Continue IV Bumex. Telemetry monitoring. Cardiology consult noted. Qualifiers: Congestive heart failure type: systolic Congestive heart failure chronicity : acute on chronic Qualified Code(s): I50.23 - Acute on chronic systolic ( congestive) heart failure (4) Hypertension Status: Chronic Qualifiers: Hypertension type: essential hypertension Qualified Code(s): I10 - Essential (primary) hypertension (5) Advanced COPD Status: Chronic Assessment and plan: Continue scheduled bronchodilators along with supplemental oxygen. Continue inhaled corticosteroids. (6) Anemia Status: Chronic Qualifiers: Anemia type: iron deficiency Iron deficiency anemia type: unspecified iron deficiency Qualified Code(s): D50.9 - Iron deficiency anemia, unspecified (7) CKD (chronic kidney disease) Status: Chronic Assessment and plan: Serum creatinine slightly increased but around her baseline. She requires IV diuretics at this time, continue to monitor creatinine closely. Qualifiers: Chronic kidney disease stage: stage 3 (moderate) Qualified Code(s): N18.3 - Chronic kidney disease, stage 3 (moderate) (8) Atrial fibrillation Status: Chronic Assessment and plan: Noted to have rapid ventricular response. Has been on IV Cardizem drip, currently off. Heart rate noted to be improving but slightly higher, around 110. Will increase dose of metoprolol and continue to monitor. Telemetry monitoring. Thyroid profile reviewed, noted to have low TSH and high free T4, levothyroxin dose may need to be reduced at discharge. Qualifiers: Atrial fibrillation type: persistent Qualified Code(s): I48.1 - Persistent atrial fibrillation - Subjective Interval history: Feels well; denies chest pain, dyspnea, cough, palpitations; wants to go home today; - Constitutional Vitals: Temp Pulse Resp BP Pulse Ox 98.2 F 107 28 124/88 100 01/03/17 08:40 01/03/17 08:00 01/03/17 08:00 01/03/17 08:00 01/03/17 08:00 General appearance: Present: A&O X 2, answers questions appropriately (poor insight into medical history) - Respiratory Respiratory exam: Present: decreased breath sounds, CTAB. Absent: accessory muscle use, rales, rhonchi, wheezes - Cardiovascular Cardiovascular exam: Present: irregular rhythm, +S1, +S2, tachycardia. Absent: diastolic murmur, gallop, rubs, systolic murmur - GI/Abdominal GI/Abdominal exam: Present: normal bowel sounds, soft, no peritoneal signs. Absent: distended, tenderness - Extremities Exam Extremities exam: Present: full ROM, pedal edema (trace dependent pedal edema B/ L), warm, radial pulses palpable and symmetrical. Absent: calf tenderness, cyanotic - Neurological Exam Neurological exam: Present: CN II-XII intact, oriented X3 (demented), no focal deficits. Absent: pronater drift, facial droop, speech deficit - Skin Skin exam: Present: dry, intact Internal Medicine: Result - Labs CBC & Chem 7: 01/04/17 04:24 01/04/17 04:24 Labs: Short CBC 01/03/17 Range/Units 05:38 WBC 9.3 (4.3-11.1) K/mcL Hgb 9.0 L (11.5-15.4) g/dL Hct 29.4 L (35.3-44.9) % Plt Count 259 (140-400) K/mcL Neutrophils # 8.2 (1.6-8.9) K/mcL BMP 01/03/17 05:38 Sodium 140 Potassium 3.7 Chloride 99 Carbon Dioxide 31 H BUN 25 H Creatinine 1.64 H Glucose 154 H Calcium 9.7 - ABG Interpretation ABG results: ABG ABG pH 7.41 pH Units (7.32-7.45) 01/01/17 00:22 ABG pCO2 58 mmHg (35-45) H 01/01/17 00:22 ABG pO2 72 mmHg (85-104) L 01/01/17 00:22 ABG O2 Saturation 94 % (95-98) L 01/01/17 00:22 PT/INR, D-dimer PT 11.0 Seconds (9.4-12.1) 12/31/16 18:51 Consult Discharge Plan - Plan Instructions: Atrial Fibrillation (DC), Hypothyroidism (DC) Additional Instructions: F/up with PCP in 1-2 weeks F/up with [facility] Referrals: Meenu Rascon, INFORMATICS SCIENTIST [Primary Care Provider] - Prescriptions: Amoxicillin/Clavulanate [Augmentin] 500 mg PO BIDWM #10 tablet Levothyroxine [Synthroid] 100 mcg PO 0630 #30 tablet Metoprolol [Lopressor] 25 mg PO BID #60 tablet predniSONE [PredniSONE] 20 mg PO BIDWM #6 tablet
[2017-01-03] MEDS ORDERED: Magnesium Sulfate 2 GM in D5% in Water 100 ML IVPB ONE (17:31)
[2017-01-04] MEDS: Ipratropium/Albuterol Neb 3 ML IH SCH ×4 (00:48→11:28)
[2017-01-04] MEDS: Piperacillin/Tazobactam 3.375 GM in D5% in Water (Mini-Bag+) 100 ML IVPB SCH (04:00)
[2017-01-04 04:42] LABS: Basophils % 0.1 %; Hematocrit 30.3 % (35.3-44.9); Hemoglobin 9.4 g/dL (11.5-15.4); Immature Granulocytes % 0.5 % (0-4); Lymphocytes # 0.6 K/mcL (0.6-4.6); Lymphocytes % 7.9 %; Mean Corpuscular Hemoglobin 30.3 pg (28.0-33.3); Mean Corpuscular Volume 97.7 fL (83.0-100.0); Mean Platelet Volume 11.7 fL (9.4-12.4); Monocytes # 0.4 K/mcL (0.0-1.3); Monocytes % 4.8 %; Neutrophils # 6.8 K/mcL (1.6-8.9); Platelet Count 289 K/mcL (140-400); Red Cell Distribution Width 14.8 % (11.5-14.5); Segmented Neutrophils % 86.7 %
[2017-01-04 05:04] LABS: Calcium 9.7 mg/dL (8.6-10.8); Potassium 4.5 mEq/L (3.5-4.5)
[2017-01-04] MEDS: Bumetanide 1 MG TABLET PO SCH (06:01)
[2017-01-04] MEDS: Budesonide/Formoterol 80/4.5 MDI IH SCH (07:42)
[2017-01-04 07:53] VITALS: BP 114/63
[2017-01-04] MEDS: Aspirin 81 MG TAB.CHEW PO SCH (08:00)
[2017-01-04] MEDS: APIXABAN 2.5 MG TABLET PO SCH (08:00)
[2017-01-04] MEDS: Docusate Oral Soln 100 MG/10 ML UDC PO SCH (08:00)
[2017-01-04] MEDS: predniSONE 20 MG TABLET PO SCH (08:02)
--- NOTE | 2017-01-04 09:01 | Discharge Summary ---
Date of Encounter: 01/04/17 Time of Encounter: 08:59 - Discharge Diagnosis (1) Acute and chronic respiratory failure with hypoxia Priority: Primary Status: Acute (2) HCAP (healthcare-associated pneumonia) Priority: Primary Status: Acute (3) Hypertension Priority: Secondary Status: Chronic Qualifiers: Hypertension type: essential hypertension Qualified Code(s): I10 - Essential (primary) hypertension (4) Advanced COPD Priority: Secondary Status: Chronic (5) CHF (congestive heart failure) Priority: Primary Status: Acute Qualifiers: Congestive heart failure type: systolic Congestive heart failure chronicity : acute on chronic Qualified Code(s): I50.23 - Acute on chronic systolic ( congestive) heart failure (6) Anemia Priority: Secondary Status: Chronic Qualifiers: Anemia type: iron deficiency Iron deficiency anemia type: unspecified iron deficiency Qualified Code(s): D50.9 - Iron deficiency anemia, unspecified (7) CKD (chronic kidney disease) Priority: Secondary Status: Chronic Qualifiers: Chronic kidney disease stage: stage 3 (moderate) Qualified Code(s): N18.3 - Chronic kidney disease, stage 3 (moderate) (8) Atrial fibrillation Priority: Secondary Status: Chronic Qualifiers: Atrial fibrillation type: persistent Qualified Code(s): I48.1 - Persistent atrial fibrillation (9) Hypothyroidism Priority: Secondary Status: Chronic Qualifiers: Hypothyroidism type: unspecified Qualified Code(s): E03.9 - Hypothyroidism , unspecified - Discharge Medications Prescriptions: Amoxicillin/Clavulanate [Augmentin] 500 mg PO BIDWM #10 tablet Levothyroxine [Synthroid] 100 mcg PO 0630 #30 tablet Metoprolol [Lopressor] 25 mg PO BID #60 tablet predniSONE [PredniSONE] 20 mg PO BIDWM #6 tablet Home Medications: Apixaban [Eliquis] 2.5 mg PO BID 10/10/16 [History] Simvastatin [Zocor] 20 mg PO QPM 10/10/16 [History] Albuterol Sulfate [Ventolin Hfa] 2 puff IH Q4H PRN 10/19/16 [History] Aspirin 81 mg PO DAILY 10/19/16 [History] Docusate [Colace] 100 mg PO DAILY PRN 10/19/16 [History] Fluticasone/Salmeterol [Advair 250-50 Diskus] 1 puff IH Q12H 10/19/16 [History] Sennosides [Senokot] 8.6 mg PO DAILY PRN 10/19/16 [History] Clopidogrel [Plavix] 75 mg PO DAILY 12/08/16 [History] Potassium Chloride 10 meq PO DAILY #30 12/20/16 [Rx] Bumetanide 0.5 mg PO BID 12/31/16 [History] Amoxicillin/Clavulanate [Augmentin] 500 mg PO BIDWM #10 tablet 01/04/17 [Rx] Ipratropium/Albuterol Neb [Duoneb] 3 ml IH [id number] inhsol 01/04/17 [Rx] Levothyroxine [Synthroid] 100 mcg PO 0630 #30 tablet 01/04/17 [Rx] Metoprolol [Lopressor] 25 mg PO BID #60 tablet 01/04/17 [Rx] predniSONE [PredniSONE] 20 mg PO BIDWM #6 tablet 01/04/17 [Rx] Allergies/Adverse Reactions: 3 Allergy/AdvReac Type Severity Reaction Status Date / Time diphenhydramine Allergy Difficulty Verified 10/10/16 18:03 [From Alejandro] Breathing ivp dye Allergy See Uncoded 10/10/16 15:35 Comments Procedures/tests Complete & Pending: Procedures Performed prior 72 hours Category Date Time Status EV echocardiogram Routine Y 01/01/17 18:24 Completed - Notes to Outpatient Provider Please f/up patient's thyroid profile; her Levothyroxine is being decreased due to low TSH, high FT4 and tachycardia; Date of admission: 12/31/16 18:08 Primary care physician: Meenu Rascon CNP Discharging clinician: Monique Deal Anticipated date of discharge: 01/04/17 - Patient Status Disposition: Home Health Service Condition: Good Functional capacity at discharge: uses cane/walker Overall status at discharge: patient is progressing back to baseline - Discharge Instructions Instructions: Atrial Fibrillation (DC), Hypothyroidism (DC) Follow Up With: Meenu Rascon CNP [Primary Care Provider] - Additional Instructions: F/up with PCP in 1-2 weeks F/up with [facility] - Diet and Activity Activity: as per physical therapy, wear oxygen at all times Diet: low fat, low cholesterol, low salt diet (fluid restriction to 1.2L/day) Hospital course: Ms. Hardy is a 81 year old female with multiple medical problems was initially admitted with shortness of breath. She was noted to be in acute on chronic respiratory failure due to underlying congestive heart failure and suspected pneumonia. She was started on IV diuresis with Bumex along with fluid restriction and urine output monitoring. She was also started on IV Zosyn for suspected pneumonia and initially required noninvasive positive pressure ventilation with BiPAP support. Her respiratory symptoms gradually improved and she is currently saturating well on nasal cannula, oxygen requirements back to baseline. She was also noted to be in atrial fibrillation with rapid ventricular response and her beta zack has been increased. She briefly required IV Cardizem drip. Cardiology was consulted and agreed with this management. Patient is currently medically stable for discharge with outpatient follow-up, home health services will be resumed at discharge. - Time Spent with Patient Total time spent providing and/or coordinating discharge services: Greater than 30 minutes (45 min) - Constitutional Vitals: Temp Pulse Resp BP Pulse Ox 98.2 F 98 18 114/63 96 01/04/17 07:51 01/04/17 07:44 01/04/17 07:44 01/04/17 07:44 01/04/17 07:44 General appearance: Present: A&O X 2, answers questions appropriately (poor insight into medical history) - Respiratory Respiratory exam: Present: decreased breath sounds. Absent: accessory muscle use, rales, rhonchi, wheezes - Cardiovascular Cardiovascular exam: Present: irregular rhythm, +S1, +S2. Absent: diastolic murmur, gallop, rubs, systolic murmur
--- NOTE | 2017-01-04 09:12 | Physician Discharge Referral ---
Home Health/Hosp Referral Info Transfer to: Home Health Attending Provider: Monique Deal Provider in Charge Post Discharge: PCP - Diagnosis (1) Acute and chronic respiratory failure with hypoxia Priority: Primary Status: Acute (2) HCAP (healthcare-associated pneumonia) Priority: Primary Status: Acute (3) Hypertension Priority: Secondary Status: Chronic (4) Advanced COPD Priority: Secondary Status: Chronic (5) CHF (congestive heart failure) Priority: Primary Status: Acute (6) Anemia Priority: Secondary Status: Chronic (7) CKD (chronic kidney disease) Priority: Secondary Status: Chronic (8) Atrial fibrillation Priority: Secondary Status: Chronic (9) Hypothyroidism Priority: Secondary Status: Chronic - Respiratory Orders Oxygen / L per min (3L/min via NC) Smoking Cessation: Smoking cessation has been advised. For more information, call the [employer] Quit Line at 0-087-SBZA-NOW. - Diet/Nutrition Diet/Nutrition Orders: No Added Salt (RIGOBERTO), Renal, Cardiac - Activity Activity Orders: Ambulate - Services Needed Following services are medically necessary services: Nursing, Physical Therapy, Occupational Therapy - Transfer Medications Prescriptions: Amoxicillin/Clavulanate [Augmentin] 500 mg PO BIDWM #10 tablet Levothyroxine [Synthroid] 100 mcg PO 0630 #30 tablet Metoprolol [Lopressor] 25 mg PO BID #60 tablet predniSONE [PredniSONE] 20 mg PO BIDWM #6 tablet Home Medications: Apixaban [Eliquis] 2.5 mg PO BID 10/10/16 [History] Simvastatin [Zocor] 20 mg PO QPM 10/10/16 [History] Albuterol Sulfate [Ventolin Hfa] 2 puff IH Q4H PRN 10/19/16 [History] Aspirin 81 mg PO DAILY 10/19/16 [History] Docusate [Colace] 100 mg PO DAILY PRN 10/19/16 [History] Fluticasone/Salmeterol [Advair 250-50 Diskus] 1 puff IH Q12H 10/19/16 [History] Sennosides [Senokot] 8.6 mg PO DAILY PRN 10/19/16 [History] Clopidogrel [Plavix] 75 mg PO DAILY 12/08/16 [History] Potassium Chloride 10 meq PO DAILY #30 12/20/16 [Rx] Bumetanide 0.5 mg PO BID 12/31/16 [History] Amoxicillin/Clavulanate [Augmentin] 500 mg PO BIDWM #10 tablet 01/04/17 [Rx] Ipratropium/Albuterol Neb [Duoneb] 3 ml IH [id number] inhsol 01/04/17 [Rx] Levothyroxine [Synthroid] 100 mcg PO 0630 #30 tablet 01/04/17 [Rx] Metoprolol [Lopressor] 25 mg PO BID #60 tablet 01/04/17 [Rx] predniSONE [PredniSONE] 20 mg PO BIDWM #6 tablet 01/04/17 [Rx] Allergies/Adverse Reactions: 3 Allergy/AdvReac Type Severity Reaction Status Date / Time diphenhydramine Allergy Difficulty Verified 10/10/16 18:03 [From Benadryl] Breathing ivp dye Allergy See Uncoded 10/10/16 15:35 Comments Certification: Further, I certify that my clinical findings support that this patient is homebound (i.e. absences from home require considerable and taxing effort and are for medical reasons or [employer] services or infrequently or short duration when for other reasons) because: Homebound Reason: Patient requires assistance of a person or device to safely leave home, Altered mental status requiring supervision when leaving home, Severity of cardiac or pulmonary status limits activity tolerance Attestation: My signature below is to certify that this patient is under my care and that I, or nurse practitioner, or a physician's assistant prosecuting attorney working with me, has a face-to -face encounter with this patient.
== END 2017-01-04 11:43 | disposition home health service (06) | DRG 291 ==
LOC: 2ANU → SUATTDRO 18:08 → ICNU 18:19
PROVIDERS: ADMIT Internal Medicine; ATTEND Internal Medicine